=== PATIENT | male | born 1980 | race Caucasian/White ===

== ENCOUNTER 2024-06-03 12:18 | Emergency (ER) | payer MEDICAID, SELFPAY ==
[2024-06-03 12:29] VITALS: BP 132/89; PULSE 128; RESP 19; TEMP 36.4; O2SAT 98; BMI 26.6
--- NOTE | 2024-06-03 13:08 | EKG_ITS ---
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
--- NOTE | 2024-06-03 13:08 | XR_ITS ---
Examination: PA lateral chest 2 views TECHNIQUE: Upright PA lateral chest 2 views Exam date and time: June 03, 2024 1329 hours Comparison December 09, 2022 INDICATIONS: Intermittent chest pain coughing beginning 3 days ago. FINDINGS: Significant bilateral perihilar pneumonia Prominent hilar regions Mild enlargement cardiac contour Moderate osteopenia IMPRESSION: Significant bilateral perihilar pneumonia, follow-up imaging is needed to document clearing
--- NOTE | 2024-06-03 13:09 | PD.EDRME ---
Rapid Medical Screening Exam RME Arrival date/time: 06/03/24 12:18 This is a 43-year-old male here with complaints of chest pain, dyspnea worsening dyspnea when he lays down. Symptoms have been for 3 days. I have greeted and performed a focused initial assessment of this patient. Initial appropriate labs ordered at this time. A comprehensive ED assessment and evaluation of the patient and analysis of all test and completion of medical decision making process will be conducted by additional ED provider. Chief Complaint: Flu Like Symptoms Time Seen by Provider: 06/03/24 12:39 Vital signs: Vital Signs Temperature 97.6 F 06/03/24 12:29 Pulse Rate 128 H 06/03/24 12:29 Respiratory Rate 19 06/03/24 12:29 Blood Pressure 132/89 H 06/03/24 12:29 Pulse Oximetry (%) 98 06/03/24 12:29 Oxygen Delivery Method Room Air 06/03/24 12:29
[2024-06-03 14:21] LABS: Collection Type, Urine Clean Catch
[2024-06-03 14:26] LABS: Basophils # (Auto) 0.1 Thou/mm3 (0.0-0.2); Basophils % (Auto) 0 % (0-2.5); Eosinophils # (Auto) 0.1 Thou/mm3 (0.0-0.5); Eosinophils % (Auto) 0 % (0-10); Hematocrit 46.7 % (41.0-53.0); Hemoglobin 15.6 g/dL (13.5-16.0); Immature Granulocytes % (Auto) 0 % (0-0); Immature Granulocytes Auto 0.04 Thou/mm3 (0.00-0.00); Lymphocytes # (Auto) 1.3 Thou/mm3 (1.0-4.8); Lymphocytes % (Auto) 11 % (10-50); Mean Corpuscular HGB Conc 33.4 g/dl (31.0-37.0); Mean Corpuscular Hemoglobin 29.4 pg (25.0-35.0); Mean Corpuscular Volume 88 fL (80-100); Monocytes # (Auto) 0.8 Thou/mm3 (0.0-0.8); Monocytes % (Auto) 7 % (0-12); Neutrophils # (Auto) 10.3 Thou/mm3 (1.8-7.7); Neutrophils % (Auto) 82 % (37-80); Nucleated Red Blood Cell % 0 /100 WBC (0); Platelet Count 258 Thou/mm3 (140-440); RDW Standard Deviation 41.2 fL (35.1-43.9); Red Blood Count 5.31 Miln/mm3 (4.50-5.90); White Blood Count 12.6 Thou/mm3 (3.8-10.6)
[2024-06-03 14:28] LABS: Bilirubin,Urine Negative (Negative); Blood,Urine Negative (Negative); Clarity,Urine Clear (Clear/Hazy); Color,Urine Lt-Yellow (Lt Yel-Yel); Glucose, Urine Negative (Negative); Ketones,Urine Negative (Negative); Leukocyte Esterase,Urine Negative (Negative); Nitrite,Urine Negative (Negative); PH,Urine 5.5 (5.0-7.0); Protein,Urine Negative (Neg - Trace); RBC,Urine 2 /hpf (0-3); Specific Gravity,Urine 1.013 (1.001-1.035); Squamous Epithelial Cell,Urine < 1 /hpf (0-5); Urobilinogen,Urine Negative mg/dL (0.0-1.0); WBC,Urine 1 /hpf (0-5)
[2024-06-03 14:49] LABS: Alanine Aminotransferase 105 U/L (10-49); Albumin, Serum 4.5 gm/dL (3.5-5.0); Alkaline Phosphatase 76 U/L (46-116); Anion Gap 7 (7-16); Aspartate Amino Transferase 43 U/L (0-34); BUN/Creatinine Ratio 17 Ratio (12-20); Blood Urea Nitrogen 15 mg/dL (9-23); Calcium 9.2 mg/dL (8.3-10.6); Calcium (Corrected) 9.2 mg/dL (8.5-10.1); Carbon Dioxide 26.4 mMol/L (20.0-31.0); Chloride 103 mMol/L (98-107); Creatinine (Component) 0.9 mg/dL (0.6-1.3); Estimated Creatinine Clearance 104.7 mL/min (>60); Globulin 2.3 gm/dL (2.3-3.5); Glucose 137 mg/dL (74-106); Lipase 30 U/L (12-53); Magnesium 1.8 mg/dL (1.6-2.6); Osmolality,Calculated 274 (275-295); Potassium 4.5 mMol/L (3.4-5.1); Sodium 136 mMol/L (136-145); Total Protein 6.8 gm/dL (5.7-8.2); Troponin I 0.021 ng/mL (0.0-0.045); eGFR > 60 See Note
[2024-06-03 15:50] VITALS: BP 134/97; PULSE 130; RESP 19; TEMP 36.5; O2SAT 100
--- NOTE | 2024-06-03 15:59 | PD.EDURI ---
Upper Respiratory Inf. RME/HPI General Chief Complaint: Flu Like Symptoms Stated Complaint: cough, feels like there is liquid in lungs x3days Time Seen by Provider: 06/03/24 12:39 Arrival date/time: 06/03/24 12:18 RME / HPI RME / HPI Narrative: 43-year-old male patient with no significant medical history, came in for evaluation regarding worsening cough, with yellowish phlegm, dyspnea on exertion, chest pain and coughing, severity moderate. Has been ongoing for the last 3 days. Patient denies any fever. Denies any other complaint. No medication was taken prior to arrival. Related Data Previous Rx's ?Medication ?Instructions ?Recorded naproxen 500 mg tablet 500 mg PO BID #14 tabs 12/13/22 albuterol sulfate 90 mcg/actuation 2 inh inhalation QID PRN shortness 06/03/24 breath activated powder inhaler of breath #1 ea (ProAir RespiClick) amoxicillin 875 mg-potassium 1 tab PO BID #14 tabs 06/03/24 clavulanate 125 mg tablet doxycycline hyclate 100 mg capsule 100 mg PO BID #14 caps 06/03/24 Allergies Allergy/AdvReac Type Severity Reaction Status Date / Time NKA* Allergy Uncoded 06/03/24 12:21 Review of Systems Review of Systems Narrative Review of Systems: Review of system reviewed and within normal limits except mentioned in HPI ED Exam Narrative Physical exam: VITAL SIGNS: Reviewed. GENERAL APPEARANCE: Alert and interactive, follows commands, no acute distress, HEAD AND FACE: Non-traumatic. ENT: PERRL, pink conjunctivitis, eyelid no trauma, Mucous membrane moist. NECK: Supple, nontender, no nuchal rigidity. CHEST: No tenderness, no crepitus, no paradoxical movement, no retractions. LUNGS: Clear, well ventilated, symmetric, no rales, no wheezing, no ronchi, no stridor, good breath sounds bilaterally. HEART: Regular rate, regular rhythm, no murmur, no gallops. ABDOMEN: Soft, positive bowel sounds, nondistended, no guarding, nontender, no rebound, no masses, RECTAL: Deferred. GENITAL: Deferred. NEUROLOGICAL: Gross motor function intact sensory function intact, Appropriate for age. MUSCULOSKELETAL: low back nontender, full range of motion. EXTREMITIES: Nontender, full range of motion. SKIN: Color pink, dry, no rash, no lacerations, no abrasions, no contusions. LYMPHATICS: Deferred. Course Quality Measures none Orders Category Date Time Status EKG (ED ONLY) *Do not use* NOW Care 06/03/24 13:08 Completed NPO STAT Care 06/03/24 13:08 Active EKG (ED Only) Stat Exams 06/03/24 13:08 Draft XR chest 2V Stat Exams 06/03/24 13:08 Completed CBC Stat Lab 06/03/24 13:56 Completed Comprehensive Metabolic Panel Stat Lab 06/03/24 13:56 Completed Lipase Stat Lab 06/03/24 13:56 Completed Magnesium Stat Lab 06/03/24 13:56 Completed Troponin I Stat Lab 06/03/24 13:56 Completed Urinalysis Stat Lab 06/03/24 14:09 Completed Vital Signs Vital signs: Vital Signs Temperature 97.6 F 06/03/24 12:29 Pulse Rate 128 H 06/03/24 12:29 Respiratory Rate 19 06/03/24 12:29 Blood Pressure 132/89 H 06/03/24 12:29 Pulse Oximetry (%) 98 06/03/24 12:29 Oxygen Delivery Method Room Air 06/03/24 12:29 Upper Respiratory Infection MDM Narrative MDM Narrative:: 43-year-old male patient with no significant medical history, came in for evaluation regarding worsening cough, with yellowish phlegm, dyspnea on exertion, chest pain and coughing, severity moderate. Has been ongoing for the last 3 days. Patient denies any fever. Denies any other complaint. No medication was taken prior to arrival. Laboratory workup all came back with slight leukocytosis, otherwise unremarkable. Chest x-ray showed bilateral pneumonia. Results discussed with the patient. Patient will be discharged home on Augmentin and doxycycline. Currently patient is satting 100% on room air Patient data External records reviewed:: None Clinical information provided by:: patient Social determinants that could affect healthcare access:: none Patient has the following chronic illnesses:: None How is presenting disease/condition affected by chronic disease/condition?: no chronic disease Evaluation data The following diagnostics were reviewed and interpreted by me:: lab results and radiology exam(s) Lab and/or radiology exams considered but not ordered:: None Interpretation Summary: Laboratory workup came back with slight leukocytosis. The rest of the labs unremarkable. Chest x-ray showed bilateral pneumonia Medications / Prescriptions Medications or Prescriptions considered but not ordered:: None none Medication administrations:: None Consultations Consultation(s) initiated? (list below): No Diagnosis Upper Respiratory Differential Diagnosis: upper respiratory infection, influenza and other (Pneumonia) Most likely diagnosis given after review of the tests above:: Pneumonia Admission Indicated Admission indicated?: not indicated Explain why admission is indicated or not indicated:: Stable Admission Request Was there a request for admission?: No Disposition Plan Disposition Plan: Discharge Discharge Attestation Discharge Attestation: The patient was given an opportunity to ask questions and understood the discharge instructions. Discharge instructions specifically effects, indications for sooner follow up or return to the emergency department, and the expected course of current diagnosis. Patient condition: Stable Discharge Plan Plan Patient Disposition: HOME (Self Care) Disposition Comment: stable Prescriptions/Referrals Prescriptions/Med Rec: New amoxicillin-pot clavulanate 875-125 mg tablet 1 tab PO BID Qty: 14 0RF doxycycline hyclate 100 mg capsule 100 mg PO BID Qty: 14 0RF ProAir RespiClick 90 mcg/actuation aerosol powdr breath activated 2 inh inhalation QID PRN (Reason: shortness of breath) Qty: 1 0RF No Action naproxen 500 mg tablet 500 mg PO BID Qty: 14 0RF Referrals: No Primary/Family,Physician [Primary Care Provider] - In 1 week Problem List Clinical Impression: Pneumonia Patient/Caregiver Discharge Instructions Education Materials: Treating Pneumonia Additional Instructions: Thank you for the opportunity for serving you today. You are stable for discharged . You are advised to: Follow-up with your PCP in 1 to 2 days Return to ED for worsening of symptoms Increase oral fluids Take medication as prescribed Print Language: Cape Verdean Stand Alone Forms: Yara Award Info., Patient Portal Info Letter PA/BUILDING PRINCIPAL Supervising Physician CATHIE/BUILDING PRINCIPAL Supervising Physician: MD Eric
[2024-06-03 16:53] VITALS: PULSE 88; O2SAT 99
== END 2024-06-03 16:54 | disposition home or self-care (01) ==
PROVIDERS: Nurse Practitioner Primary Care; Emergency Provider Emergency Medicine
DX: J18.9 Pneumonia, unspecified organism (principal); R00.0 Tachycardia, unspecified
CPT/HCPCS: 36415; 71046; 80053; 81001; 83690; 83735; 84484; 85025; 93005; 99283

== ENCOUNTER 2024-06-13 13:58 | Emergency (ER) | payer MEDICAID, SELFPAY ==
[2024-06-13 13:59] VITALS: BMI 27.3
--- NOTE | 2024-06-13 15:04 | EKG_ITS ---
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
[2024-06-13 15:09] VITALS: BP 120/80; PULSE 130; RESP 18; TEMP 36.4; O2SAT 98
--- NOTE | 2024-06-13 15:18 | XR_ITS ---
Examination: PA lateral chest 2 views Technique: Upright PA lateral chest 2 views Exam date and time: June 13, 2024 1526 hrs. Comparison June 03, 2024 Indications: Shortness of breath difficulty breathing today. Findings: Mild heart failure Mild to moderate enlargement left ventricle Prominent vascular congestion including early perihilar edema No definite lobar pneumonia on this study Impression: Early heart failure
--- NOTE | 2024-06-13 15:19 | PD.EDRME ---
Rapid Medical Screening Exam RME Arrival date/time: 06/13/24 13:58 43-year-old male presents emergency department complaining of shortness of breath and reports recently completed antibiotic course for pneumonia. Chief Complaint: Shortness of Breath/Dyspnea Time Seen by Provider: 06/13/24 15:13 Vital signs: Vital Signs Temperature 97.6 F 06/13/24 15:09 Pulse Rate 130 H 06/13/24 15:09 Respiratory Rate 18 06/13/24 15:09 Blood Pressure 120/80 06/13/24 15:09 Pulse Oximetry (%) 98 06/13/24 15:09 Oxygen Delivery Method Room Air 06/13/24 15:09 Vital signs reviewed by provider: Yes
[2024-06-13 15:59] LABS: Basophils # (Auto) 0.1 Thou/mm3 (0.0-0.2); Basophils % (Auto) 1 % (0-2.5); Eosinophils # (Auto) 0.1 Thou/mm3 (0.0-0.5); Eosinophils % (Auto) 1 % (0-10); Hematocrit 44.5 % (41.0-53.0); Hemoglobin 14.8 g/dL (13.5-16.0); Immature Granulocytes % (Auto) 0 % (0-0); Immature Granulocytes Auto 0.02 Thou/mm3 (0.00-0.00); Lymphocytes # (Auto) 1.5 Thou/mm3 (1.0-4.8); Lymphocytes % (Auto) 17 % (10-50); Mean Corpuscular HGB Conc 33.3 g/dl (31.0-37.0); Mean Corpuscular Hemoglobin 28.8 pg (25.0-35.0); Mean Corpuscular Volume 87 fL (80-100); Monocytes # (Auto) 0.6 Thou/mm3 (0.0-0.8); Monocytes % (Auto) 7 % (0-12); Neutrophils # (Auto) 6.4 Thou/mm3 (1.8-7.7); Neutrophils % (Auto) 74 % (37-80); Nucleated Red Blood Cell % 0 /100 WBC (0); Platelet Count 375 Thou/mm3 (140-440); RDW Standard Deviation 39.6 fL (35.1-43.9); Red Blood Count 5.14 Miln/mm3 (4.50-5.90); White Blood Count 8.7 Thou/mm3 (3.8-10.6)
[2024-06-13 16:23] LABS: Alanine Aminotransferase 144 U/L (10-49); Albumin, Serum 4.3 gm/dL (3.5-5.0); Albumin/Globulin Ratio 1.8 (1.2-2.2); Alkaline Phosphatase 77 U/L (46-116); Anion Gap 7 (7-16); Aspartate Amino Transferase 67 U/L (0-34); BUN/Creatinine Ratio 18 Ratio (12-20); Bilirubin,Total 0.6 mg/dL (0.3-1.2); Blood Urea Nitrogen 18 mg/dL (9-23); Calcium 9.3 mg/dL (8.3-10.6); Calcium (Corrected) 9.3 mg/dL (8.5-10.1); Carbon Dioxide 25.9 mMol/L (20.0-31.0); Chloride 103 mMol/L (98-107); Estimated Creatinine Clearance 91.2 mL/min (>60); Globulin 2.4 gm/dL (2.3-3.5); Glucose 137 mg/dL (74-106); Osmolality,Calculated 275 (275-295); Potassium 4.5 mMol/L (3.4-5.1); Sodium 136 mMol/L (136-145); Total Protein 6.7 gm/dL (5.7-8.2); Troponin I 0.022 ng/mL (0.0-0.045); eGFR > 60 See Note
[2024-06-13 17:25] LABS: Amphetamine/Methamp Scrn,U Positive (Negative); Barbiturate Screen,Urine Negative (Negative); Benzodiazepines Screen,Urine Negative (Negative); Benzoylecgonine Screen, Ur Negative (Negative); Fentanyl Screen,Urine Negative (Negative); Opiate Screen,Urine Negative (Negative); THC Screen,Urine Positive (Negative)
--- NOTE | 2024-06-13 18:25 | EDNOTE_ITS ---
ED General RME/HPI General Chief complaint: Shortness of Breath/Dyspnea Stated complaint: SOB DIFF BREATHING, HX OF LUNG INF Time Seen by Provider: 06/13/24 15:13 Arrival date/time: 06/13/24 13:58 CC: Anxiety and coughing up phlegm HPI ongoing for the past week. The patient was seen here 1 week ago, at which time the patient was diagnosed with a pneumonia. The patient states he took all the antibiotics and the cough and cold-like symptoms have resolved but the anxiety and coughing up phlegm has continued. The patient admits to using methamphetamines for the last decade but is trying to cut back. Patient denies chest pain shortness of breath or difficulty breathing. Patient is quite fidgety and anxious while discussing his all with me the patient has no other complaints. RME / HPI RME / HPI narrative: 06/13/24 13:58 43-year-old male presents emergency department complaining of shortness of breath and reports recently completed antibiotic course for pneumonia. Related Data Previous Rx's ?Medication ?Instructions ?Recorded naproxen 500 mg tablet 500 mg PO BID #14 tabs 12/13/22 albuterol sulfate 90 mcg/actuation 2 inh inhalation QID PRN shortness 06/03/24 breath activated powder inhaler of breath #1 ea (ProAir RespiClick) amoxicillin 875 mg-potassium 1 tab PO BID #14 tabs 06/03/24 clavulanate 125 mg tablet doxycycline hyclate 100 mg capsule 100 mg PO BID #14 caps 06/03/24 Allergies Allergy/AdvReac Type Severity Reaction Status Date / Time NKA* Allergy Uncoded 06/13/24 14:00 Review of Systems Review of Systems Narrative Review of Systems: GEN: No fever, no chills, no weight loss EYES: No discharge, no visual changes, no pain HEENT: No ear pain, no congestion, no sore throat PULM: No shortness of breath, no cough, no congestion CV: No chest pain, no dyspnea on exertion, no palpitations GI: No nausea, no vomiting, no diarrhea, no pain, no constipation : No frequency, no urgency, no dysuria MUSC/SKEL: No joint pain, no back pain SKIN: No rash PSYCH: No hallucinations, no depression HEME/LYMPH: No easy bleeding or bruising tendencies NEURO: No weakness, no headache Past Medical History Past Medical History CARDIAC: Negative Cardiac Disorders or Congestive Heart Failure RESPIRATORY: Negative Chronic Obstructive Pulmonary Disease (COPD) or Asthma GENITOURINARY: Negative Renal Disease ENDOCRINE: Negative Diabetes Mellitus Type 1 or Diabetes Mellitus Type 2 HEMATOLOGIC: Negative Sickle Cell Disease Social History SMOKING STATUS: Current every day smoker ED Exam Narrative Physical exam: [General: Anxious, fidgety, but not in any acute distress Head normocephalic HEENT: Within acceptable limits Neck is supple nontender Chest equal chest rise nontender to palpation Respiratory: Clear to auscultation no wheezes crackles or rubs CV: Rate rhythm is regular, tachycardic, no murmurs rubs or clicks Abdomen is soft nontender no masses positive bowel sounds all 4 quadrants Back: No CVA tenderness no spinous process tenderness from cervical spine thoracic and lumbar spine Skin: Intact no petechiae rash induration ulceration or crepitus Extremities: Moving all extremity against resistance cap refill less than 2 seconds neurosensory intact Neuro: Awake alert oriented x3 Glascow coma 15 no focal deficits] Course Quality Measures none Orders Category Date Time Status EKG (ED ONLY) *Do not use* NOW Care 06/13/24 15:04 Completed EKG (ED Only) Stat Exams 06/13/24 15:04 Draft XR chest 2V Stat Exams 06/13/24 15:18 Completed CBC Stat Lab 06/13/24 15:49 Completed Comprehensive Metabolic Panel Stat Lab 06/13/24 15:49 Completed Drug Screen,Urine Stat Lab 06/13/24 16:53 Completed Troponin I Stat Lab 06/13/24 15:49 Completed Vital Signs Vital signs: Vital Signs Temperature 97.6 F 06/13/24 15:09 Pulse Rate 130 H 06/13/24 15:09 Respiratory Rate 18 06/13/24 15:09 Blood Pressure 120/80 06/13/24 15:09 Pulse Oximetry (%) 98 06/13/24 15:09 Oxygen Delivery Method Room Air 06/13/24 15:09 [facility] Patient data External records reviewed:: [facility] previous records Clinical information provided by:: patient Social determinants that could affect healthcare access:: none Patient has the following chronic illnesses:: Methamphetamine abuse How is presenting disease/condition affected by chronic disease/condition?: e xacerbated by Evaluation data The following diagnostics were reviewed and interpreted by me:: lab results and radiology exam(s) Lab and/or radiology exams considered but not ordered:: CBC shows no acute leukocytosis anemia thrombocytopenia CMP shows no acute electrolyte imbalances renal impairment transaminitis or T. bili elevation Chest x-ray shows mild congestive heart failure EKG performed at 1514 shows a ventricular rate of 129 SD interval 145 QRS of 101 QTc of 397 this is sinus tachycardia right axis deviation. Interpretation Summary: Patient fairly admits he feels better after the cold-like symptoms from 1 week ago but is anxious regarding his anxiety, and coughing up phlegm. Patient states he has no PCP advised him that he is to continue with the PCP as there is no acute finding requires emergent or immediate intervention. Patient will be discharged home to continue use the rescue inhaler he was prescribed at last visit only as needed. Medications Medications considered but not ordered:: None Medication administrations:: None Consultations Consultation(s) initiated? (list below): No Diagnosis Differential Diagnosis ED Complaint MDM: Worsening pneumonia anxiety methamphetamine abuse Most likely diagnosis given after review of the tests above:: Anxiety methamphetamine abuse Admission Indicated Admission indicated?: not indicated Explain why admission is indicated or not indicated:: Stable for outpatient follow-up Admission Request Was there a request for admission?: No Disposition Plan Disposition Plan: Discharge Discharge Attestation Discharge Attestation: The patient and all family members were given an opportunity to ask questions and understood the discharge instructions. Discharge instructions specifically effects, indications for sooner follow up or return to the emergency department, and the expected course of current diagnosis. Patient condition: Stable Medical Decision Making Differential Diagnosis Differential Diagnosis: Worsening pneumonia anxiety methamphetamine abuse Lab Data 06/13/24 15:49 06/13/24 15:49 Labs: Lab Results 06/13/24 06/13/24 Range/Units 15:49 16:53 WBC 8.7 (3.8-10.6) Thou/mm3 RBC 5.14 (4.50-5.90) Miln/mm3 Hgb 14.8 (13.5-16.0) g/dL Hct 44.5 (41.0-53.0) % MCV 87 (80-100) fL MCH 28.8 (25.0-35.0) pg MCHC 33.3 (31.0-37.0) g/dl RDW Std Deviation 39.6 (35.1-43.9) fL Plt Count 375 D (140-440) Thou/mm3 Neut % (Auto) 74 (37-80) % Lymph % (Auto) 17 (10-50) % Tom[place]kins % (Auto) 7 (0-12) % Eos % (Auto) 1 (0-10) % Baso % (Auto) 1 (0-2.5) % Neut # (Auto) 6.4 (1.8-7.7) Thou/mm3 Lymph # (Auto) 1.5 (1.0-4.8) Thou/mm3 Tom[place]kins # (Auto) 0.6 (0.0-0.8) Thou/mm3 Eos # (Auto) 0.1 (0.0-0.5) Thou/mm3 Baso # (Auto) 0.1 (0.0-0.2) Thou/mm3 Immature Gran # (Auto) 0.02 H (0.00-0.00) Thou/mm3 Absolute Nucleated RBC 0.00 (0.00-0.00) Thou/mm3 Immature Gran % 0 (0-0) % Nucleated RBC % 0 (0) /100 WBC Sodium 136 (136-145) mMol/L Potassium 4.5 (3.4-5.1) mMol/L Chloride 103 (98-107) mMol/L Carbon Dioxide 25.9 (20.0-31.0) mMol/L Anion Gap 7 (7-16) BUN 18 (9-23) mg/dL Creatinine 1.0 (0.6-1.3) mg/dL Estim Creat Clear Calc 91.2 (>60) mL/min eGFR > 60 (60 - ) See Note BUN/Creatinine Ratio 18 (12-20) Ratio Glucose 137 H (74-106) mg/dL Calculated Osmolality 275 (275-295) Calcium 9.3 (8.3-10.6) mg/dL Corrected Calcium 9.3 (8.5-10.1) mg/dL Total Bilirubin 0.6 (0.3-1.2) mg/dL AST 67 H (0-34) U/L ALT 144 H (10-49) U/L Alkaline Phosphatase 77 (46-116) U/L Troponin I 0.022 (0.0-0.045) ng/mL Total Protein 6.7 (5.7-8.2) gm/dL Albumin 4.3 (3.5-5.0) gm/dL Globulin 2.4 (2.3-3.5) gm/dL Albumin/Globulin Ratio 1.8 (1.2-2.2) Urine Opiates Screen Negative (Negative) Urine Fentanyl Screen Negative (Negative) Ur Barbiturates Screen Negative (Negative) U Amphetamin/Meth Scrn Positive A (Negative) U Benzodiazepines Scrn Negative (Negative) U Cocaine Metab Screen Negative (Negative) U Marijuana (THC) Screen Positive A (Negative) Discharge Plan Plan Patient Disposition: HOME (Self Care) Patient condition on transfer: Stable Prescriptions/Referrals Prescriptions/Med Rec: No Action naproxen 500 mg tablet 500 mg PO BID Qty: 14 0RF amoxicillin-pot clavulanate 875-125 mg tablet 1 tab PO BID Qty: 14 0RF doxycycline hyclate 100 mg capsule 100 mg PO BID Qty: 14 0RF ProAir RespiClick 90 mcg/actuation aerosol powdr breath activated 2 inh inhalation QID PRN (Reason: shortness of breath) Qty: 1 0RF Referrals: Kolton Blair MD [Physician] - In 1 week No Primary/Family,Physician [Primary Care Provider] - In 1 week Problem List Clinical Impression: Anxiety, Phlegm in throat, Substance abuse Patient/Caregiver Discharge Instructions Other Activity Instructions:: Continue to use your rescue inhaler only when you need to i.e. when you are wheezing. Phlegm will take a while to go away. Anxiety and difficulty sleeping and need to follow-up with the primary care provider listed above for further evaluation and/or possibility of medications. Education Materials: ED Anxiety Reaction Print Language: Puerto Rican Stand Alone Forms: Yara Award Info., Work/School Release, Patient Portal Info Letter PA/ELEMENT BURNER Supervising Physician PA/ELEMENT BURNER Supervising Physician: Owen Jones ENP
== END 2024-06-13 18:38 | disposition home or self-care (01) ==
PROVIDERS: Emergency Provider Emergency Medicine
DX: F41.9 Anxiety disorder, unspecified (principal); F19.10 Other psychoactive substance abuse, uncomplicated; R00.0 Tachycardia, unspecified; R05.9 Cough, unspecified
CPT/HCPCS: 36415; 71046; 80053; 80307; 84484; 85025; 93005; 99283

== ENCOUNTER 2024-12-20 00:58 | Inpatient (IN) | payer MEDICAID, SELFPAY ==
[2024-12-20] VITALS (91 sets, daily range): BP systolic 112–145; BP diastolic 88–108; PULSE 87–131; RESP 0–94; TEMP 36.1–36.8; O2SAT 91–100; BMI 22.0
--- NOTE | 2024-12-20 | XR_ITS ---
Examinations: MRI Brain without intravenous contrast. MRA brain without intravenous contrast. MRA carotids without intravenous contrast 3-D vascular reconstructions Date and time of exam: December 20, 2024 1309 hours INDICATIONS: Stroke alert December 20, 2024 0107 hours, onset focal neurologic deficit including right facial droop and right arm drift altered mental status, unable to walk Technique: Multiple axial and sagittal images of the brain have been obtained MRA brain carotid images without contrast obtained, including 3-D postprocessing, vascular maximum intensity projection images Findings: Sell[place] is not enlarged. The optic chiasm and infundibular stalk are not remarkable. Prepontine and interpeduncular cisterns are not enlarged. No localized enlargement of the medulla or ninoska. Fourth ventricle and cerebellar tonsils normal in position. Subacute hemorrhage is not seen. Fourth ventricle is midline. Mass in the cerebellopontine angle region is not evident. 7th and 8th nerve complexes exhibits symmetry. Globes are symmetrical with no retro-orbital mass. Increased white matter signal evident in the left basal ganglia Diffusion-weighted images demonstrate foci restricted diffusion left basal ganglia including left caudate nucleus and smaller restricted foci of diffusion in the left parietal cortex Mass-effect upon the ventricular system is not identified. 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
--- NOTE | 2024-12-20 01:00 | PC.NURSE ---
PT BIB EMS WITH C/O POSS STROKE PER EMS. PT CALLED EMS STATING PT APPEARED ALTERED. PER EMS FACIAL DROOP AND RIGHT SIDED ARM AND LOWER LEG WEAKENESS NOTED. PT PRESENTS TO ER, ALTERED, NOT ANSWERING ANY QUESTIONS. MD BURNETT MET EMS [place] [facility] [place] AND ASSESSED PT. PT TAKEN TO CT VIA EMS GURNEY. FOLLOWED BY THIS RN. TELENUERO ACTIVATED.
--- NOTE | 2024-12-20 01:01 | XR_ITS ---
Examination: CTA carotids with intravenous contrast CTA brain, head with intravenous contrast. 2-D sagittal, coronal reconstructions. 3-D reconstructions. Exam date and time: December 20, 2024 0115 hours INDICATIONS: Stroke alert, onset focal neurologic deficit today CTDI: vol (mGy) 11.4 DLP: (mGycm) 484 Technique: Multiple CTA axial brain, head carotid images post intravenous contrast injection 75 cc, [id number]. 2-D sagittal, coronal reconstructions. 3-D reconstructions, 3-D post processing including vascular maximum intensity projection images. Low dose protocols were performed. One or more of the following dose reduction techniques were used; automated exposure control, adjustment of the mA and/or KV according to patient size, use of iterative reconstruction technique. Findings: Study is severely limited secondary to contrast bolus timing error and patient motion No critical carotid or vertebral artery stenoses Very poor filling of the cerebral vessels with no large vessel occlusions noted Extensive opacity at the lung apices suspicious for pulmonary edema Impression : Study is significantly limited secondary to contrast bolus timing error and patient motion. No significant neck arterial stenoses Very poor filling of cerebral vessels with no large vessel occlusions noted
--- NOTE | 2024-12-20 01:01 | EDNOTE_ITS ---
Neuro Symptoms Deficit-RME/HPI General Chief Complaint: Altered Mental Status Stated Complaint: POSSIBLE STROKE Time Seen by Provider: 12/20/24 01:13 Arrival date/time: 12/20/24 00:58 RME / HPI RME / HPI Narrative: This section includes all my notes and documentations, including HPI, PE, and ED course. Kenton Carroll MD HPI: 44yo male with a history of CHF, HTN BIBA from home presents to the ED for complaints of right facial droop and right arm drift that started just SUSTAINABILITY ANALYST about [address] him in the car to bring him here. He was unable to ambulate. So she placed him on the ground and called EMS. Blood sugar en route was 153. No other complaints reported. ROS: Unobtainable obtain from the patient due to AMS. Physical Exam: General: Obtunded. Eyes: Conjunctivae and lids clear. EOMI. PERRL. ENT: No signs of head trauma. Neck: Supple. No carotid bruit. No JVD. Heart: RRR. Lungs: No respiratory distress. Good air movement. No rhonchi, wheezing, rales. Abdomen: Soft and nontender. Legs: No clubbing, cyanosis, edema. Skin: Warm and dry. Neuro: Obvious right sided paralysis. Detailed exam difficult due to AMS. I reviewed EMS notes. I reviewed all diagnostic test results. My interpretation of the EKG is sinus tachycardia with nonspecific ST-T changes. My interpretation of the chest x-ray is no acute findings, official radiology report is pending. My review of the CT head report is NAD. My review of the CT angio head and neck report is no acute findings. Blood tests remarkable for BNP 1991. UA unremarkable. UDS positive for methamphetamines and marijuana. At this point, diagnoses include CVA. Treatment here included TNK. Some improvement noted. I discussed the case with our teleneurologist and ICU physician. About the presentation and exam and diagnostics and treatments here. And need of further care in the hospital. Will accept the patient. Kenton Carroll MD Related Data Previous Rx's ?Medication ?Instructions ?Recorded naproxen 500 mg tablet 500 mg PO BID #14 tabs 12/13 albuterol sulfate 90 mcg/actuation 2 inh inhalation QI D PRN shortness 06/03/24 breath activated powder inhaler of breath #1 ea (ProAir RespiClick) amoxicillin 875 mg-potassium 1 tab PO BID #14 tabs clavulanate 125 mg tablet doxycycline hyclate 100 mg capsule 100 mg PO BID #14 c aps 06/03/24 Allergies Allergy/AdvReac Type Severity Reaction Status Date / Time NKA* Allergy Uncoded 06/13/24 14:00 Review of Systems Review of Systems ROS Unobtainable: unobtainable due to mental status Past Medical History Past Medical History CARDIAC: Negative Cardiac Disorders or Congestive Heart Failure RESPIRATORY: Negative Chronic Obstructive Pulmonary Disease (COPD) or Asthma GENITOURINARY: Negative Renal Disease ENDOCRINE: Negative Diabetes Mellitus Type 1 or Diabetes Mellitus Type 2 HEMATOLOGIC: Negative Sickle Cell Disease Social History SMOKING STATUS: Current every day smoker ED Exam Narrative Physical exam: As noted in HPI. Course Quality Measures Suspected type of Stroke: Acute Ischemic Tenecteplase given: within 60 min of arrival stroke Orders Category Date Time Status Admit to Inpatient Status Routine Admission 12/20/24 02:55 Active Patient Condition Routine Admission 12/20/24 02:55 Ordered Aspiration precautions NOW Care 12/20/24 02:56 Active Bedrest QS Care 12/20/24 02:54 Active Bedside Blood Glucose NOW Care 12/20/24 01:01 Active COVID-19 Screening Questionnaire NOW Care 12/20/24 02:54 Active Apartment Leasing Specialist NOW Care 12/20/24 01:01 Active Continuous Pulse Oximetry NOW Care 12/20/24 01:01 Completed Continuous Pulse Oximetry NOW Care 12/20/24 02:54 Completed Decision to Admit X1 Care 12/20/24 02:54 Completed EKG (ED ONLY) *Do not use* NOW Care 12/20/24 01:01 Completed In and Out Catheter X1 Care 12/20/24 01:01 Active Insert IV NOW Care 12/20/24 01:01 Active NIH Stroke Scale Q4HX8,QSHIFT Care 12/20/24 01:30 Active NIH Stroke Scale now Care 12/20/24 01:01 Active NPO NOW Care 12/20/24 01:01 Active NPO NOW Care 12/20/24 02:56 Active Neuro Check Q30M Care 12/20/24 01:30 Active Notify provider NEEDED Care 12/20/24 02:55 Active Nurse Swallow Screen x1 Care 12/20/24 01:01 Active Seizure precautions NEEDED Care 12/20/24 02:56 Active Sequential Compression Device QSHIFT Care 12/20/24 02:54 Active Strict Intake and Output Routine Care 12/20/24 02:55 Ordered Urinary Catheter QS Care 12/20/24 02:54 Active Vital Signs Q15M Care 12/20/24 01:30 Active Consult to Neurology / Tele-Neurology Routine Cons 12/20/24 01:01 Active Consult to Neurology / Tele-Neurology Routine Cons 12/20/24 02:58 Active Referral Physical Therapy Routine Cons 12/20/24 02:58 Active Referral Speech Therapy Routine Cons 12/20/24 02:58 Active Diet NPO (NOW) Diet 12/20/24 02:56 Active CA echo doppler complete Stat Exams 12/20/24 02:[address] angio stroke protocol Stat Exams 12/20/24 01:[address] stroke protocol Stat Exams 12/20/24 01:01 Taken EKG (ED Only) Stat Exams 12/20/24 01:01 Ordered XR chest 1V portable Stat Exams 12/20/24 01:05 Taken Alcohol, Blood Medical Stat Lab 12/20/24 01:26 Completed Ammonia Stat Lab 12/20/24 01:26 Completed Arterial Blood Gas Stat Lab 12/20/24 01:43 Completed B-Type Natriuretic Peptide Stat Lab 12/20/24 01:26 Completed Bilirubin,Direct Stat Lab 12/20/24 01:26 Completed CBC AM DRAW Lab 12/20/24 05:00 Ordered CBC AM DRAW Lab 12/21/24 05:00 Ordered CBC AM DRAW Lab 12/22/24 05:00 Ordered CBC Stat Lab 12/20/24 01:26 Completed CK [Creatine Kinase] Stat Lab 12/20/24 01:26 Completed Comprehensive Metabolic Panel AM DRAW Lab 12/20/24 05:00 Ordered Comprehensive Metabolic Panel AM DRAW Lab 12/21/24 05:00 Ordered Comprehensive Metabolic Panel AM DRAW Lab 12/22/24 05:00 Ordered Comprehensive Metabolic Panel Stat Lab 12/20/24 01:26 Completed Drug Screen,Urine Stat Lab 12/20/24 01:48 Completed Free T4 (Free Thyroxine) Stat Lab 12/20/24 01:26 Completed Lipid Panel AM DRAW Lab 12/20/24 05:00 Ordered Magnesium AM DRAW Lab 12/20/24 05:00 Ordered Magnesium AM DRAW Lab 12/21/24 05:00 Ordered Magnesium AM DRAW Lab 12/22/24 05:00 Ordered Magnesium Stat Lab 12/20/24 01:26 Completed Partial Thromboplastin Time Stat Lab 12/20/24 01:26 Completed Phosphorous AM DRAW Lab 12/21/24 05:00 Ordered Phosphorous AM DRAW Lab 12/22/24 05:00 Ordered Phosphorous AM DRAW Lab 12/23/24 05:00 Ordered Prothrombin Time with INR Stat Lab 12/20/24 01:26 Completed TSH [Thyroid Stimulating Hormone] Stat Lab 12/20/24 01:26 Completed Troponin I Stat Lab 12/20/24 01:26 Completed Urinalysis Stat Lab 12/20/24 01:48 Completed Urine Culture Stat Lab 12/20/24 01:48 Received LORazepam [Ativan Inj] Med 12/20/24 01:48 Discontinued 2 mg IVP X1 ONE Labetalol IV [Trandate IV] Med 12/20/24 01:15 Active 10 mg IVP PRNMRX1 PRN Labetalol IV [Trandate IV] Med 12/20/24 01:15 Active 10 mg IVP PRNMRX1 PRN Labetalol IV [Trandate IV] Med 12/20/24 01:12 Discontinued 100 mg .ROUTE .STK-MED ONE NALOXONE INJ (Vial) [Narcan Inj (Vial)] Med 12/20/24 01:04 Discontinued 1 mg IVP X1 ONE Nicardipine/Ns 20Mg Ivpb [Cardene Ivpb] Med 12/20/24 01:15 Active 20 mg in 200 ml IV 5 mg/hr Ondansetron Inj [Zofran Inj] Med 12/20/24 01:01 Discontinued 4 mg IVP Q4HR PRN Ondansetron Inj [Zofran Inj] Med 12/20/24 02:54 Active 4 mg IVP Q6H PRN Pantoprazole Inj [Protonix Inj] Med 12/20/24 09:00 Active 40 mg IVP QDAY Sodium Chloride 0.9% 1000 ml [Ns] 1,000 ml Med 12/20/24 01:04 Discontinued IV 999 mls/hr Sodium Chloride 0.9% 1000 ml [Ns] 1,000 ml Med 12/20/24 01:15 Discontinued IV Q10H Tenecteplase Inj [TNKase Inj] Med 12/20/24 01:15 Discontinued 20 mg IV X1 ONE Tenecteplase Inj [TNKase Inj] Med 12/20/24 01:11 Discontinued 50 mg .ROUTE .STK-MED ONE Code Status Routine Oth 12/20/24 02:54 Ordered Oxygen Delivery NOW RT 12/20/24 01:01 Active Vital Signs Vital signs: Vital Signs Pulse Rate 111 H 12/20/24 01:02 Respiratory Rate 24 H 12/20/24 01:02 Blood Pressure 138/100 H 12/20/24 01:02 Pulse Oximetry (%) 95 12/20/24 01:02 Oxygen Delivery Method Nasal Cannula 12/20/24 01:02 Neuro Symptoms / Deficit MDM Narrative MDM Narrative:: Scribe Attestation: 12/20/24 - Xena Schulz am scribing for and in the presence of Dr. Carroll. 44yo male with a history of CHF, HTN BIBA from home presents to the ED for complaints of right facial droop and right arm drift that started just SUSTAINABILITY ANALYST. Patient was seen by me immediately upon arrival at 0058. Per EMS, patient was his usual self 20 minutes SUSTAINABILITY ANALYST when the patient's girlfriend noticed the patient having right facial droop and right arm drift. Patient was guided to the ground by his girlfriend. No falls or injuries. Blood sugar en route was 153. No drugs or alcohol. No other complaints reported. Patient data External records reviewed:: [facility] previous records (Per chart review, patient was seen here on 06/13/24 for anxiety.) and EMS form Clinical information provided by:: EMS Social determinants that could affect healthcare access:: none Patient has the following chronic illnesses:: CHF, HTN How is presenting disease/condition affected by chronic disease/condition?: uneffected by Evaluation data The following diagnostics were reviewed and interpreted by me:: lab results, radiology exam(s) and EKG tracing(s) (My interpretation of the EKG is: Sinus tachycardia (114 bpm) with nonspecific ST-T changes. Kenton Carroll MD) Lab and/or radiology exams considered but not ordered:: none Interpretation Summary: I reviewed all diagnostic test results. My interpretation of the EKG is sinus tachycardia with nonspecific ST-T changes. My interpretation of the chest x-ray is no acute findings, official radiology report is pending. My review of the CT head report is NAD. My review of the CT angio head and neck report is no acute findings. Blood tests remarkable for BNP 1992. UA unremarkable. UDS positive for methamphetamines and marijuana. Medications / Prescriptions Medications or Prescriptions considered but not ordered:: none Medication administrations:: Medication Administration History Nicardipine/Sodium Chloride (Cardene Ivpb) 20 mg in 200 mls @ 50 mls/hr IV .Q4H PRN; Protocol PRN Reason: Per Nicardipine Stroke Protocol Stop: 01/19/25 01:14 Labetalol HCl (Labetalol Inj 5 Mg/Ml Vial 20 Ml) 10 mg IVP PRNMRX1 PRN PRN Reason: SBP > 185 mmHg and/or DBP > 110 Labetalol HCl (Labetalol Inj 5 Mg/Ml Vial 20 Ml) 10 mg IVP PRNMRX1 PRN PRN Reason: SBP > 180 mmHg or DBP > 105 Ondansetron HCl (Ondansetron Inj 2 Mg/Ml Inj 2 Ml) 4 mg IVP Q6H PRN; Protocol PRN Reason: NAUSEA OR VOMITING Stop: 01/19/25 02:53 Pantoprazole Sodium (Pantoprazole Inj 40 Mg Vial) 40 mg IVP QDAY [facility] Stop: 01/19/25 08:59 Discontinued Medications Furosemide (Furosemide Inj 10 Mg/Ml 4ml Vial) 40 mg IVP X1 ONE Stop: 12/20/24 03:05 Last Admin: 12/20/24 03:15 Dose: 40 mg Documented By: KAREN Sodium Chloride (Ns) 1,000 mls @ 100 mls/hr IV Q10H GIO Stop: 01/19/25 01:14 Sodium Chloride (Ns) 1,000 mls @ 999 mls/hr IV .Q1H1M ONE Stop: 12/20/24 02:04 Last Admin: 12/20/24 01:34 Dose: Not Given Documented By: EE Non-Admin Reason: Cancelled by Provider Labetalol HCl (Labetalol Inj 5 Mg/Ml Vial 20 Ml) Confirm Administered Dose 100 mg .ROUTE .STK-MED ONE Stop: 12/20/24 01:13 Last Admin: 12/20/24 01:34 Dose: Not Given Documented By: EE Non-Admin Reason: Override Medication Lorazepam (Lorazepam 2 Mg/Ml Vial) 2 mg IVP X1 ONE Stop: 12/20/24 01:49 Last Admin: 12/20/24 02:58 Dose: Not Given Documented By: KAREN Non-Admin Reason: Cancelled by Provider Naloxone HCl (Naloxone Inj 0.4 Mg/Ml Vial) 1 mg IVP X1 ONE Stop: 12/20/24 01:05 Last Admin: 12/20/24 01:34 Dose: Not Given Documented By: KAREN Non-Admin Reason: Cancelled by Provider Ondansetron HCl (Ondansetron Inj 2 Mg/Ml Inj 2 Ml) 4 mg IVP Q4HR PRN PRN Reason: NAUSEA OR VOMITING Stop: 01/19/25 01:00 Tenecteplase (Tenecteplase Inj 50 Mg Vial) 20 mg IV X1 ONE Stop: 12/20/24 01:16 Last Admin: 12/20/24 01:26 Dose: 20 mg Documented By: KAREN Co-signed By: CYNTHIA Tenecteplase (Tenecteplase Inj 50 Mg Vial) Confirm Administered Dose 50 mg .ROUTE .STK-MED ONE Stop: 12/20/24 01:12 Last Admin: 12/20/24 01:34 Dose: Not Given Documented By: KAREN Non-Admin Reason: Override Medication TNK Consultations Consultation(s) initiated? (list below): Yes Consultation #1 (Physician, Specialty, Details): I discussed the case with our teleneurologist and ICU physician. About the presentation and exam and diagnostics and treatments here. And need of further care in the hospital. Will accept the patient. Diagnosis Neuro Differential Diagnosis: convulsions, delirium, subarachnoid hemorrhage, peripheral neuropathy, cerebrovascular accident, multiple sclerosis and transient cerebral ischemia Most likely diagnosis given after review of the tests above:: CVA Admission Indicated Admission indicated?: indicated Explain why admission is indicated or not indicated:: CVA Admission Request Was there a request for admission?: Yes Admission Attestation Admission request attestation: Discussed case with our ICU service regarding admission. Discussed patients ED course, exam findings, labs, and radiology results. Agreed to accept the patient for admission. Disposition Plan Disposition Plan: Admit Critical Care Time Critical Care Time Critical Care Time: Yes Total Critical Care Time (min.): 45 Attestation: Due to a high probability of clinically significant, life threatening deterioration, the patient required my highest level of preparedness to intervene emergently and I personally spent this critical care time directly and personally managing the patient. This critical care time included obtaining a history; examining the patient; ordering and review of studies; arranging urgent treatment with development of a management plan; evaluation of patient's response to treatment; frequent reassessment; and discussions with family and other providers. It was exclusive of separately billable procedures and treating other patients and teaching time. Kenton Carroll MD Discharge Plan Plan Patient Disposition: Admit Acute Care w/in Hospital Problem List Clinical Impression: CVA (cerebrovascular accident)
--- NOTE | 2024-12-20 01:01 | XR_ITS ---
Examination: CT brain head without contrast. 2-D sagittal coronal reconstructions Date and time of exam:December 20, 2024, 0107 hours Comparison June 04, 2023 INDICATIONS: Stroke alert, onset focal neurologic deficit today CTDI: vol (mGy):104.3 DLP: (mGycm):2114 Technique: Multiple CT axial sections of the brain have been obtained, 5 mm slice thickness. Contrast has not been administered. 2-D sagittal, coronal reconstructions have been obtained Low dose protocols were performed. One or more of the following dose reduction techniques were used; automated exposure control, adjustment of the mA and/or KV according to patient size, use of iterative reconstruction technique. Findings: The images are severely degraded by patient motion Ventricles are not enlarged No gross hemorrhage or mass effect IMPRESSION: No gross hemorrhage or mass effect
--- NOTE | 2024-12-20 01:02 | PC.NURSE ---
Case Consult 12/20/2024 01:01:56 PST Case # [id number] has been created.
--- NOTE | 2024-12-20 01:05 | XR_ITS ---
Examination: AP chest single view TECHNIQUE: AP portable supine chest single view Date and time: December 20, 2024, 0143 hours Comparison June 13, 2024 INDICATIONS: Stroke alert today, altered mental status, shortness of breath FINDINGS: Mild heart failure. Mild to moderate enlargement cardiac contour. Prominent vascular congestion and early septal pulmonary edema IMPRESSION: Mild CHF
--- NOTE | 2024-12-20 01:08 | PC.NURSE ---
BARBARA CARRASCO ON ASSESSING PT AT THIS TIME.
[2024-12-20] MEDS: TENECTEPLASE INJ 50 MG VIAL 20 MG IV (01:26)
[2024-12-20 01:53] LABS: Base Excess -1 (-3-3); HCO3 25 mEq/L (20-26); O2 Saturation 84 % (91-98); PCO2 42 mmHg (32.0-48.0); pH, Arterial 7.38 (7.35-7.45)
[2024-12-20 01:53] LABS: Collection Type, Urine Clean Catch; Squamous Epithelial Cell,Urine 0 /hpf (0-5)
[2024-12-20 01:54] LABS: Basophils # (Auto) 0.1 Thou/mm3 (0.0-0.2); Basophils % (Auto) 1 % (0-2.5); Eosinophils # (Auto) 0.1 Thou/mm3 (0.0-0.5); Eosinophils % (Auto) 1 % (0-10); Hematocrit 44.2 % (41.0-53.0); Hemoglobin 14.4 g/dL (13.5-16.0); Immature Granulocytes Auto 0.02 Thou/mm3 (0.00-0.00); Lymphocytes # (Auto) 2.7 Thou/mm3 (1.0-4.8); Lymphocytes % (Auto) 35 % (10-50); Mean Corpuscular HGB Conc 32.6 g/dl (31.0-37.0); Mean Corpuscular Hemoglobin 28.9 pg (25.0-35.0); Mean Corpuscular Volume 89 fL (80-100); Monocytes # (Auto) 0.6 Thou/mm3 (0.0-0.8); Monocytes % (Auto) 8 % (0-12); Neutrophils # (Auto) 4.2 Thou/mm3 (1.8-7.7); Neutrophils % (Auto) 54 % (37-80); Nucleated Red Blood Cell # 0.00 Thou/mm3 (0.00-0.00); Nucleated Red Blood Cell % 0 /100 WBC (0); Platelet Count 246 Thou/mm3 (140-440); RDW Standard Deviation 49.0 fL (35.1-43.9); Red Blood Count 4.98 Miln/mm3 (4.50-5.90); White Blood Count 7.7 Thou/mm3 (3.8-10.6)
[2024-12-20 01:56] LABS: Allen Test Performed/OK; Inspired Oxygen, FIO2 28 %; PO2 54 mmHg (83-108); Puncture Site Left Radial
--- NOTE | 2024-12-20 01:57 | ESCONSULT_ITS ---
Tele Neuro Consultation Consultation Date 12/20/24 Most Recent Vital Signs Last Vital Signs Pulse 100 12/20/24 01:07 Resp 26 H 12/20/24 01:07 BP 138/100 H 12/20/24 01:02 Pulse Ox 96 12/20/24 01:07 O2 Del Method Nasal Cannula 12/20/24 01:02 Consultation Narrative [facility] Consult [facility] Patient Name:???Bart Jackson Date of :???1980 Identification Number:??? Date of Service:???12/20/2024 01:01:56 Diagnosis:?I63.89 - Cerebrovascular accident (CVA) due to other mechanism ([facility]) Impression: ?44YOM with a PMHx of HTN and CHF presenting to the [place] ED in the setting of acute onset R hemiparesis. On exam, patient with dense R hemiplegia, global aphasia, and anarthria, with a forced L gaze deviation consistent with a left middle cerebral artery ischemic stroke. In setting of high concern for this, as well as age, lack of anticoagulation therapy at home, and very recent onset of symptoms, patient was deemed an excellent candidate for thrombolytic therapy. We attempted to obtain consent for thrombolytic therapy, and conveyed to patient that there is a small (appx 3%) risk of a major bleeding complication from administering this medication; however, in setting of patient's mental status, patient unable to provide consent at this time. On thorough chart review, no contraindications noted that would exclude patient from receiving thrombolytic therapy, and thus, we obtained a two-physician consent, given that this was deemed a medical emergency, to administer Tenecteplase. Thus, patient received Tenecteplase at 01:26 on 12/20/2024 without any immediate complications. Moving forwrad, recommend admission to the ICU for post-thrombolytic monitoring and stroke workup. Our recommendations are outlined below. Recommendations: IV Tenecteplase recommended. I confirmed the following. (Patient name, , MRN, Blood Pressure, dose of Thrombolytic and waste, weight completed by stretcher/scale not stated weight, have ED staff inform ED MD of thrombolytic decision) Thrombolytic bolus given Without Complication. IV Tenecteplase Total Dose ? 20.0 mg (Dose Rounding Per Facility Protocol) Routine post Thrombolytic monitoring including neuro checks and blood pressure control during/after treatment Monitor blood pressure Check blood pressure and neuro assessment every 15 min for 2 h, then every 30 min for 6 h, and finally every hour for 16 h. Manage Blood Pressure per post Thrombolytic protocol. ? Follow designated hospital protocol for admission and post thrombolytic care ? CT brain 24 hours post Thrombolytic ? NPO until swallowing screen performed and passed ? No antiplatelet agents or anticoagulants (including heparin for DVT prophylaxis) in first 24 hours ? No Ocasio catheter, nasogastric tube, arterial catheter or central venous catheter for 24 hr, unless absolutely necessary ? Telemetry ? Bedside swallow evaluation ? HOB less than 30 degrees ? Euglycemia ? Avoid hyperthermia, PRN acetaminophen ? DVT prophylaxis ? Inpatient Neurology Consultation ? Stroke evaluation as per inpatient neurology recommendations Discussed with ED physician Advanced Imaging: CTA Head and Neck Completed. LVO:No Patient is not a candidate for ROSALIE Metrics: Last Known Well: 12/20/2024 00:30:00 Dispatch Time: 12/20/2024 01:01:56 Arrival Time: 12/20/2024 00:58:00 Initial Response Time: 12/20/2024 01:06:12Symptoms: Sudden onset R sided weakness. Initial patient interaction: 12/20/2024 01:07:55 NIHSS Assessment Completed: 12/20/2024 01:15:42Patient is a candidate for Thrombolytic. Thrombolytic Medical Decision: 12/20/2024 01:15:43 Needle Time: 12/20/2024 01:26:30Weight Noted by Staff: [address] Head: I personally reviewed all the CT images that were available to me and it showed: no blood products or early ischemic changes Primary Provider Notified of Diagnostic Impression and Management Plan on: 12/20/2024 01:39:17 Thrombolytic Contraindications: Last Known Well > 4.5 hours:?No CT Head showing hemorrhage:?No Ischemic stroke within 3 months:?No Severe head trauma within 3 months:?No Intracranial/intraspinal surgery within 3 months:?No History of intracranial hemorrhage:?No Symptoms and signs consistent with an SAH:?No GI malignancy or GI bleed within 21 days:?No Coagulopathy: Platelets <100 000 /mm3, INR >1.7, aPTT>40 s, or PT >15 s:?No Treatment dose of LMWH within the previous 24 hrs:?No Use of NOACs in past 48 hours:?No Glycoprotein IIb/IIIa receptor inhibitors use:?No Symptoms consistent with infective endocarditis:?No Suspected aortic arch dissection:?No Intra-axial intracranial neoplasm:?No Thrombolytic Decision and Management Plan: Management with thrombolytic treatment was explained to the Two Physician Consent as was risks and benefits and alternatives to the treatment. Patient agrees with the decision to proceed with thrombolytic treatment. . All questions were answered and the Two Physician Consent expressed understanding of the treatment plan. History of Present Illness:Patient is a 44 year old Male. Patient was brought by EMS for symptoms of Sudden onset R sided weakness. 44YOM with a PMHx of HTN, CHF, presenting to the [place] ED in the setting of sudden onset R facial weakness. Per staff and per EMS, symptom onset 20mins prior to arrival; patient was talking to his partner when he had a sudden onset of R facial weakness, prompting partner to immediately call EMS. On arrival, patient minimally responsive, thrashing with his L hemibody yet minimal R sided movement with no usable speech formation. No known history of strokes or seizures and no recent trauma or falls. Past Medical History: ?Hypertension ?There is no history of Diabetes Mellitus ?There is no history of Atrial Fibrillation ?There is no history of Stroke Medications: No Anticoagulant use? No Antiplatelet use Reviewed EMR for current medications Allergies:? Reviewed Social History: Smoking: Yes Drug Use: No Family History: There is no family history of premature cerebrovascular disease pertinent to this consultation ROS : 14 Points Review of Systems was performed and was negative except mentioned in HPI. Past Surgical History: There Is No Surgical History Contributory To Today?s Visit Examination: BP(140/98),?Pulse(103), 1A: Level of Consciousness - Requires repeated stimulation to arouse?+ 2 1B: Ask Month and Age - Aphasic?+ 2 1C: Blink Eyes & Squeeze Hands - Performs 0 Tasks?+ 2 2: Test Horizontal Extraocular Movements - Forced Gaze Palsy: Cannot Be Overcome ?+ 2 3: Test Visual Briceño - No Visual Loss?+ 0 4: Test Facial Palsy (Use Grimace if Obtunded) - Partial paralysis (lower face)? + 2 5A: Test Left Arm Motor Drift - Some Effort Against [place]?+ 2 5B: Test Right Arm Motor Drift - No Movement?+ 4 6A: Test Left Leg Motor Drift - Some Effort Against [place]?+ 2 6B: Test Right Leg Motor Drift - No Movement?+ 4 7: Test Limb Ataxia (FNF/Heel-Majano) - No Ataxia?+ 0 8: Test Sensation - No Response and Quadriplegic?+ 2 9: Test Language/Aphasia - Mute/Global Aphasia: No Usable Speech/Auditory Comprehension?+ 3 10: Test Dysarthria - Mute/Anarthric?+ 2 11: Test Extinction/Inattention - No abnormality?+ 0 NIHSS Score:?29 Pre-Morbid Modified [place] Scale:0 Points = No symptoms at all Spoke with :?Dr Carroll This consult was conducted in real time using interactive audio and video technology. Patient was informed of the technology being used for this visit and agreed to proceed. Patient located in hospital and provider located at home/office setting. Patient is being evaluated for possible acute neurologic impairment and high probability of imminent or life-threatening deterioration. I spent total of 35 minutes providing care to this patient, including time for face to face visit via telemedicine, review of medical records, imaging studies and discussion of findings with providers, the patient and/or family. Dr Jason Thacker [facility] For Inpatient follow-up with [facility] physician please call [facility] at . As we are not an outpatient service for any post hospital discharge needs please contact the hospital for assistance. If you have any questions for the [facility] physicians or need to reconsult for clinical or diagnostic changes please contact us via [facility] at .
[2024-12-20 01:58] LABS: Bacteria,Urine Rare; Bilirubin,Urine Negative (Negative); Blood,Urine 1+ (Negative); Clarity,Urine Clear (Clear/Hazy); Color,Urine Lt-Yellow (Lt Yel-Yel); Glucose, Urine Negative (Negative); Ketones,Urine Negative (Negative); Leukocyte Esterase,Urine Negative (Negative); Nitrite,Urine Negative (Negative); PH,Urine 6.5 (5.0-7.0); Protein,Urine Trace (Neg - Trace); RBC,Urine 5 /hpf (0-3); Specific Gravity,Urine 1.049 (1.001-1.035); Urobilinogen,Urine Negative mg/dL (0.0-1.0); WBC,Urine 3 /hpf (0-5)
[2024-12-20 02:05] LABS: Amphetamine/Methamp Scrn,U Positive (Negative); Barbiturate Screen,Urine Negative (Negative); Benzodiazepines Screen,Urine Negative (Negative); Benzoylecgonine Screen, Ur Negative (Negative); Fentanyl Screen,Urine Negative (Negative); Opiate Screen,Urine Negative (Negative); THC Screen,Urine Positive (Negative)
[2024-12-20 02:07] LABS: INR 1.2 (0.9-1.3); Partial Thromboplastin Time 26.4 Seconds (22.0-36.0); Prothrombin Time 13.1 Seconds (9.0-12.2)
[2024-12-20 02:11] LABS: Ammonia 27 uMol/L (11-32)
[2024-12-20 02:13] LABS: B-Type Natriuretic Peptide 1992 pg/mL (0-100)
[2024-12-20 02:20] LABS: Alanine Aminotransferase 36 U/L (10-49); Albumin, Serum 3.8 gm/dL (3.5-5.0); Albumin/Globulin Ratio 1.6 (1.2-2.2); Alcohol, Blood Medical < 3.0 mg/dL (0-10.0); Alkaline Phosphatase 73 U/L (46-116); Anion Gap 10 (7-16); Aspartate Amino Transferase 36 U/L (0-34); BUN/Creatinine Ratio 14 Ratio (12-20); Bilirubin,Direct 0.5 mg/dL (0.0-0.3); Bilirubin,Total 1.4 mg/dL (0.3-1.2); Blood Urea Nitrogen 18 mg/dL (9-23); Calcium 8.7 mg/dL (8.3-10.6); Calcium (Corrected) 8.9 mg/dL (8.5-10.1); Carbon Dioxide 24.8 mMol/L (20.0-31.0); Chloride 104 mMol/L (98-107); Creatine Kinase 119 U/L (34-171); Creatinine (Component) 1.3 mg/dL (0.6-1.3); Estimated Creatinine Clearance 78.8 mL/min (>60); Free T4 (Free Thyroxine) 1.38 ng/dL (0.89-1.76); Globulin 2.4 gm/dL (2.3-3.5); Glucose 126 mg/dL (74-106); Magnesium 2.0 mg/dL (1.6-2.6); Osmolality,Calculated 281 (275-295); Potassium 3.8 mMol/L (3.4-5.1); Sodium 139 mMol/L (136-145); Thyroid Stimulating Hormone 8.34 uIU/mL (0.55-4.78); Total Protein 6.2 gm/dL (5.7-8.2); Troponin I 0.025 ng/mL (0.0-0.045); eGFR > 60 See Note
--- NOTE | 2024-12-20 02:23 | PRELIM_ITS ---
CT scan of the head without intravenous contrast (axial sections with sagittal and coronal reformats) December 20, 2024 0107 hours Clinical History: Focal neuro deficit, stroke suspected. Comparison: CT head study dated June 04, 2023. Findings: The evaluation is limited due to motion artifact. There is no gross evidence of intracranial hemorrhage, mass effect or midline shift. There is mild volume loss. The calvarium appears intact. The mastoid air cells and the visualized paranasal sinuses appear clear. Impression: 1. Motion limited evaluation as described. No gross evidence of intracranial hemorrhage, mass effect or midline shift. Suggest motion free rescan or further evaluation with MRI as clinically indicated. Please refer to report on CT angiogram submitted separately. Report Electronically Signed By: Shankar Corral 12/20/2024 2:23:28 AM [EST]
--- NOTE | 2024-12-20 02:26 | PRELIM_ITS ---
CT angiogram of the head and neck with intravenous contrast (axial sections with sagittal and coronal reformats) December 20, 2024 0115 hours Clinical History: Focal neuro deficit, stroke suspected. Comparison: Correlated with the prior CT study performed earlier today at 0107 hours Findings: The evaluation is limited due to suboptimal opacification of the arteries. Head: The internal carotid, middle and anterior cerebral arteries are otherwise patent bilaterally. The A1 segment of the right anterior cerebral artery is hypoplastic, a normal variant. The intracranial vertebral arteries are patent. The vertebrobasilar junction, basilar and posterior cerebral arteries are patent. No evidence of large vessel occlusion, critical stenosis or aneurysm. Neck: The aortic arch to the extent visualized as well as the origins of the right brachiocephalic, left common carotid, and left subclavian arteries are patent. The common carotid arteries, carotid bulbs, and internal and external carotid arteries are patent. The origins of the vertebral arteries are unremarkable. The left vertebral artery is dominant. No evidence of vascular occlusion, critical stenosis, dissection or aneurysm. The soft tissues of the neck are unremarkable. The osseous structures are unremarkable . The lungs demonstrate heterogeneous attenuation with ill-defined ground-glass airspace opacities. Impression: Limited evaluation as described. Head: No evidence of large vessel occlusion, critical stenosis or aneurysm. Neck: 1. No evidence of vascular occlusion, critical stenosis, dissection or aneurysm. 2. Heterogeneous attenuation of the lungs with ill-defined ground-glass airspace opacities, which may represent interstitial pulmonary edema. Recommend clinical correlation. Report Electronically Signed By: Shankar Corral 12/20/2024 2:25:05 AM [EST]
--- NOTE | 2024-12-20 02:54 | ECHO_ITS ---
Transthoracic Echo Report Ht (in): 72 Wt (lb): 172 Exam Location: Echo Lab Status: Inpatient [employer] Shoth[employer] Driller: Susana Cortez Indications: Procedure Performed: BP: 132 / 101 HR: 116 Technical Quality: Adequate MEASUREMENTS (Male / Female) Normal Values 2D ECHO LVOT Diameter 2.0 cm LA Volume Index 81.1 cm?/m? 16 - 28 cm?/m? Ascending Aorta Diameter 3.2 cm M-MODE LV Diastolic Diameter MM 6.8 cm 4.2 - 5.9 / 3.9 - 5.3 cm LV Systolic Diameter MM 6.6 cm LV Ejection Fraction MM Teich 8.1 % LV Cardiac Index MM Teich 1134.9 cm?/min?m? IVS Diastolic Thickness MM 0.8 cm 0.6 - 1.0 / 0.6 - 0.9 cm LVPW Diastolic Thickness MM 0.9 cm 0.6 - 1.0 / 0.6 - 0.9 cm LV Relative Wall Thickness MM 0.3 0.24 - 0.42 / 0.22 - 0.42 LV Mass Index MM 128.9 g/m? 49 - 115 / 43 - 95 g/m? AV Cusp Separation MM 1.8 cm DOPPLER AV Peak Velocity 48.9 cm/s AV Peak Gradient 1.0 mmHg LVOT Peak Velocity 49.7 cm/s LVOT Peak Gradient 1.0 mmHg AV Area Cont Eq pk 3.2 cm? MR Peak Velocity 428.0 cm/s MR Peak Gradient 73.3 mmHg MR ERO PISA 0.6 cm? TR Peak Velocity 213.5 cm/s TR Peak Gradient 18.2 mmHg PV Peak Velocity 57.4 cm/s PV Peak Gradient 1.3 mmHg FINDINGS Left Ventricle Left ventricle is markedly dilated with left ventricular end-diastolic diameter of 6.8 cm with severe global hypokinesis anteroseptal akinesis left ventricle ejection fraction severely depressed. Approximate left ventricle ejection fraction is 15 to 20%. Right Ventricle The right ventricle is normal in size mild RV dysfunction. The estimated right ventricular systolic pressure, 18mmHg. Left Atrium The left atrial cavity size is severely increased. Right Atrium The right atrial cavity size is severely increased. Atrial Septum The interatrial septum appears normal with no evidence of a shunt. Bubble study negative for PFO/ASD. Aorta The aorta is normal by two-dimensional, color flow and Doppler interrogation. Mitral Valve The mitral valve is normal by two-dimensional, color flow and Doppler interrogation. There is moderate eccentric mitral regurgitation. Aortic Valve The aortic valve is trileaflet and normal by two-dimensional, color flow and Doppler interrogation. There is no significant aortic valve regurgitation. Tricuspid Valve The tricuspid valve is normal by two-dimensional, color flow and Doppler interrogation. There is mild tricuspid regurgitation. Pulmonic Valve The pulmonic valve is not well visualized. There is no significant pulmonic valve regurgitation. Vessels The pulmonary artery appears normal. The inferior vena cava is severely dilated without collapse. Pericardium The pericardium is normal by two-dimensional imaging. There is no significant pericardial effusion. CONCLUSIONS Indications: CHF/Possible Stroke Dilated cardiomyopathy markedly dilated left ventricle with severe global systolic dysfunction ejection fraction 15 to 20% Normal-sized right ventricle with mild dysfunction of the right ventricle. Moderate mitral regurgitation secondary to dilated mitral annulus. Mild to moderate tricuspid regurgitation normal PA pressure. No evidence of cardiac thrombus Bubble study is negative for intracardiac shunts negative for PFO byBob Erwin (Electronically Signed) Final Date: 20 December 2024 12:52
--- NOTE | 2024-12-20 03:05 | ESHP_ITS ---
Documentation for date of: 12/20/24 [facility] History of Present Illness Chief complaint: right sided weakness History of present illness: Patient is a 44 years old male with PMH of CHF and methamphetamine and THC use disorder presented to the ED due to right-sided weakness and agitation. Patient is somnolent and is not able to answer questions, he is at the bedside helps with the history. She reports he suddenly became agitated and was not able to use his right arm and leg and she took him to the emergency room. She reports he is using methamphetamine and marijuana but is unaware when he used last time. He drinks alcohol occasionally. He was previously seen in the emergency room for pneumonia, he later followed up with his PCP and was diagnosed with CHF and started on Lasix. On arrival to the ED his blood pressure 178/100, pulse 111, respirations 24, oxygen saturation 95% on room air. Labs showed glucose 126, total bilirubin 1.4, BNP 1992, TSH 8.34. Urinalysis showed blood 1+, RBCs 5. U tox showed positive amphetamine and THC. ABG showed pH 7.38, PO2 54, PCO2 42. Head CT and CTA showed no LVO, hemorrhage or mass effect. Teleneuro was consulted and patient was given tenecteplase at 1:26 AM. Several minutes after TNK administration patient was able to move his right upper and lower extremity however continued to be uncooperative so full assessment was deferred. He was admitted to ICU for further management. PMH: CHF and methamphetamine and THC use disorder. PSH: Unknown. SH: Per : Uses methamphetamine and marijuana. Drinks alcohol occasionally. Denies smoking tobacco. FH: Unknown. Allergies: NKA. Medications: Med rec is pending. Review of Systems Review of Systems ROS Unobtainable: unobtainable due to mental status Exam Vital Signs Pulse Resp BP Pulse Ox O2 Del Method O2 Flow Rate 120 H 26 H 145/89 H 98 Nasal Cannula 3 12/20/24 01:56 12/20/24 01:56 12/20/24 01:56 12/20/24 01:56 12/20/24 01:56 12/20/24 01:56 Narrative Exam Gen: Well-developed and well-nourished male. HEENT: NCAT, MMM, anicteric conjunctivae, limited exam due to mental status. CVS: normal S1 and S2. Regular tachycardia. No M/R/G. Resp: crackles B/L. No rhonchi, rales, or wheezing. Javier batista breathing pattern noted. Abd: soft, non-tender, non-distended. BS+ in all 4 quadrants. MSK: Good ROM in BUE & BLE. 1+ edema BLE. Mottling noted over B/L knees. Neuro: limited exam due to mental status, able to move all extremities, extremily somnolent and uncooperative. Results: Labs 12/20/24 03:42 12/20/24 03:42 Labs: Short CBC 12/20/24 Range/Units 01:26 WBC 7.7 (3.8-10.6) Thou/mm3 Hgb 14.4 (13.5-16.0) g/dL Hct 44.2 (41.0-53.0) % Plt Count 246 (140-440) Thou/mm3 BMP 12/20/24 01:26 Sodium 139 Potassium 3.8 Chloride 104 Carbon Dioxide 24.8 BUN 18 Creatinine 1.3 Glucose 126 H Calcium 8.7 Cardiac Enzymes 12/20/24 Range/Units 01:26 Total Creatine Kinase 119 (34-171) U/L Troponin I 0.025 (0.0-0.045) ng/mL Liver Function 12/20/24 Range/Units 01:26 Total Bilirubin 1.4 H (0.3-1.2) mg/dL Direct Bilirubin 0.5 H (0.0-0.3) mg/dL AST 36 H (0-34) U/L ALT 36 (10-49) U/L Alkaline Phosphatase 73 (46-116) U/L Albumin 3.8 (3.5-5.0) gm/dL Urine 12/20/24 Range/Units 01:48 Urine Color Lt-Yellow (Lt Yel-Yel) Urine Clarity Clear (Clear/Hazy) Urine pH 6.5 (5.0-7.0) Ur Specific [place] 1.049 H (1.001-1.035) Urine Protein Trace (Neg - Trace) Urine Glucose (UA) Negative (Negative) ABG Interpretation ABG results: 12/20/24 01:43 ABG pH 7.38 ABG pCO2 42 ABG pO2 54 L* ABG HCO3 25 ABG O2 Saturation 84 L ABG Base Excess -1 Quality Measures Quality Measures stroke Suspected type of Stroke: Acute Ischemic Tenecteplase given: within 60 min of arrival Rehab services: PT evaluation ordered and Speech Language Pathology eval ordered VTE Prophylaxis: mechanical Antithrombotic by day 2:: not indicated (describe) (no for first 24 hrs) Statin ordered: not ordered Anticoagulation ordered for A-fib or flutter (current or hx): not indicated Medications Home Medications and Allergies Allergies Allergy/AdvReac Type Severity Reaction Status Date / Time NKA* Allergy Uncoded 06/13/24 14:00 Visit Medications Nicardipine/Sodium Chloride (Cardene Ivpb) 20 mg in 200 mls @ 50 mls/hr IV .Q4H PRN; Protocol PRN Reason: Per Nicardipine Stroke Protocol Stop: 01/19/25 01:14 Labetalol HCl (Labetalol Inj 5 Mg/Ml Vial 20 Ml) 10 mg IVP [id number] PRN PRN Reason: SBP > 185 mmHg and/or DBP > 110 Labetalol HCl (Labetalol Inj 5 Mg/Ml Vial 20 Ml) 10 mg IVP [id number] PRN PRN Reason: SBP > 180 mmHg or DBP > 105 Ondansetron HCl (Ondansetron Inj 2 Mg/Ml Inj 2 Ml) 4 mg IVP Q6H PRN; Protocol PRN Reason: NAUSEA OR VOMITING Stop: 01/19/25 02:53 Pantoprazole Sodium (Pantoprazole Inj 40 Mg Vial) 40 mg IVP QDAY [facility] Stop: 01/19/25 08:59 Discontinued Medications Furosemide (Furosemide Inj 10 Mg/Ml 4ml Vial) 40 mg IVP X1 ONE Stop: 12/20/24 03:05 Sodium Chloride (Ns) 1,000 mls @ 100 mls/hr IV Q10H GIO Stop: 01/19/25 01:14 Sodium Chloride (Ns) 1,000 mls @ 999 mls/hr IV .Q1H1M ONE Stop: 12/20/24 02:04 Last Admin: 12/20/24 01:34 Dose: Not Given Lorazepam (Lorazepam 2 Mg/Ml Vial) 2 mg IVP X1 ONE Stop: 12/20/24 01:49 Last Admin: 12/20/24 02:58 Dose: Not Given Naloxone HCl (Naloxone Inj 0.4 Mg/Ml Vial) 1 mg IVP X1 ONE Stop: 12/20/24 01:05 Last Admin: 12/20/24 01:34 Dose: Not Given Ondansetron HCl (Ondansetron Inj 2 Mg/Ml Inj 2 Ml) 4 mg IVP Q4HR PRN PRN Reason: NAUSEA OR VOMITING Stop: 01/19/25 01:00 Tenecteplase (Tenecteplase Inj 50 Mg Vial) 20 mg IV X1 ONE Stop: 12/20/24 01:16 Last Admin: 12/20/24 01:26 Dose: 20 mg Assessment & Plan Plan Patient is a 44 years old male with PMH of CHF and methamphetamine and THC use disorder presented to the ED due to right-sided weakness and agitation, was admitted to ICU after TNK administration per stroke protocol. Neuro: #Acute CVA. Presented with right-sided weakness, which resolved(improved?) after TNK administration, complete assessment is deferred due to mental status. Tele neuro consulted in the ED, NIHSS Score:?29, tenecteplase 20 mg administered in the ED at 1:26 AM on 12/20/2024. CT and CTA preliminary negative for hemorrhage, mass effect or LVO. Plan: - Admitted to ICU. - CT brain 24 hours post Thrombolytic. - NPO until swallowing eval. - No antiplatelet agents or anticoagulants (including heparin for DVT prophylaxis) in first 24 hours. - No Ocasio catheter (inserted in the ED), nasogastric tube, arterial catheter or central venous catheter for 24 hr, unless absolutely necessary. - HOB less than 30 degrees. - Euglycemia, avoid hyperthermia, PRN acetaminophen. - DVT prophylaxis SCDs. - Inpatient Neurology Consultation ordered. - Neuro checks and blood pressure control every 15 min for 2 h, then every 30 min for 6 h, and finally every hour for 16 h. - MRI stroke protocol. #Acute encephalopathy. Unknown reason, possible due to CVA vs substance ingestion (positive THC and meth, is unaware if he used any today). No trauma, fever, chills reported. Plan: - Monitor patient with frequent neuro checks. Cardiovascular: #CHF exacerbation. Patient presented with Javier batista breathing pattern, B/L crackles, BLE 1+ pitting edema. Uses meth for long time. reported he was previously started on Lasix. No echo on file. BNP 1991, troponin I negative. Plan: - Echo ordered. - Given Lasix 40 mg x1 IV. - Strict VIDAL. - consider cardio consult. Respiratory: #Pulmonary edema. Presented with B/L crackles, CXR showed bilateral opacities, likely pulmonary edema, pending radiology read. Plan: - given 40 mg of Lasix x1 IV, consider scheduled dose. Gastrointestinal: #Elevated total bilirubin. T.bili 1.4, direct bili 0.5. Reason is unknown. Plan: - monitor with daily labs. - consider abdominal imaging. Renal: #TERRY. Baseline Cr 0.9, on admission Cr 1.3, likely due to fluid overload status, given dose of lasix. Plan: - avoid nephrotoxic agents. - renally dose medications. - strict VIDAL. - monitor with daily labs. Endocrine: #Subclinical hypothyroidism. On admission TSH 8.34, free T4 1.38. Plan: - consider further work up. Infectious Disease: No active problem. Hematology/Oncology: No active problem. Diet: NPO, pending swallow eval. DVT prophylaxis: SCDs. GI prophylaxis: Famotidine. Code status: full code. Disposition: ICU, s/p TNK. Plan of care discussed with ICU attending Dr. Vanegas. Stanislav Osorio MD, PGY 3. Disclaimer: This note was dictated by speech recognition. Minor errors in upsetting machine operator may be present due to voice recognition software. Attending Provider Attestation/Addendum I have examined the patient, reviewed labs and imaging findings, discussed the case with the resident(s), and reviewed entered orders. I agree with the plan of care as outlined in this note, with these additional summaries/recommendations: After examination of the patient and review of the clinical data, I feel that this patient needs admission to the hospital for further treatment and evaluation. Patient is a 44-year-old male with a medical history of polysubstance abuse, primary hypertension, anxiety, and recent diagnosis of CHF with unknown EF presents to [facility] emergency department on 12/20/2024 with chief complaint altered mental status and right facial droop. Stroke alert was called in the emergency department. Patient and spouse seen at bedside. Currently patient has a [place] coma score of 8 points. Patient will be admitted for acute encephalopathy and likely CVA. On admission patient was noted to have dense right hemiplegia, global aphasia, aphasia, and left gaze deviation. Stroke alert was called in the emergency department and patient was seen by teleneurology. NIHSS score of [address] head without contrast showed no acute hemorrhage, mass effect or midline shift. CTA head and neck showed no LVO or critical stenosis. Patient was deemed a tPA candidate and received IV tenecteplase. Continue routine postthrombolytic monitoring including neurochecks and blood pressure control with neuroassessment every 15 minutes x 2 hours, then every 30 minutes x 6 hours, and finally every hour for [address] head in 24 hours and order MRI brain. N.p.o. until swallow screen. Order physical therapy consultation. No antiplatelet agents for the first 24 hours. No catheter placements unless absolutely necessary. HOB less than 30 degrees. Consult in-house neurology, recommendations appreciated. Start high intensity statin when able. Order vascular risk factors with A1c, lipid panel, and TSH. Patient also diagnosed with acute encephalopathy. Etiology possibly toxic from polysubstance abuse versus structural from CVA. Urine toxicology positive for methamphetamines and THC. Continue nonformed measures to prevent delirium and attempt to avoid sedating medications. Patient will need extensive counseling and psychotherapist social worker referral once mentation is more improved. Per spouse patient also recently received a diagnosis of CHF in [place]. Ejection fraction unknown. Patient also diagnosed with acute CHF exacerbation. BNP 1992 and bilateral lower extremity edema. Order echocardiogram with bubble study. Continue with diuresis and will institute goal-directed medical therapy based off echocardiogram. Strict I's and O's, fluid restriction, and cardiac diet once tolerating. Minimal hyperbilirubinemia present likely secondary to congestive hepatopathy and repeat level in AM. Avoid hepatotoxic agents. We will continue to monitor patient closely and will proceed with intubation if GCS worsens. Spouse updated on the plan and in agreement. All questions answered to satisfaction. Please see residents note for additional details and management. Dr. Guilherme MD
[2024-12-20] MEDS: FUROSEMIDE INJ 10 MG/ML 4ML VIAL 40 MG IVP (03:15)
[2024-12-20 04:03] LABS: Basophils # (Auto) 0.1 Thou/mm3 (0.0-0.2); Basophils % (Auto) 1 % (0-2.5); Eosinophils # (Auto) 0.1 Thou/mm3 (0.0-0.5); Eosinophils % (Auto) 1 % (0-10); Hematocrit 43.9 % (41.0-53.0); Hemoglobin 14.9 g/dL (13.5-16.0); Immature Granulocytes Auto 0.03 Thou/mm3 (0.00-0.00); Lymphocytes # (Auto) 1.2 Thou/mm3 (1.0-4.8); Lymphocytes % (Auto) 17 % (10-50); Mean Corpuscular HGB Conc 33.9 g/dl (31.0-37.0); Mean Corpuscular Hemoglobin 28.7 pg (25.0-35.0); Mean Corpuscular Volume 85 fL (80-100); Monocytes # (Auto) 0.2 Thou/mm3 (0.0-0.8); Monocytes % (Auto) 3 % (0-12); Neutrophils # (Auto) 5.3 Thou/mm3 (1.8-7.7); Neutrophils % (Auto) 78 % (37-80); Nucleated Red Blood Cell # 0.00 Thou/mm3 (0.00-0.00); Nucleated Red Blood Cell % 0 /100 WBC (0); Platelet Count 223 Thou/mm3 (140-440); RDW Standard Deviation 46.4 fL (35.1-43.9); Red Blood Count 5.19 Miln/mm3 (4.50-5.90); White Blood Count 6.8 Thou/mm3 (3.8-10.6)
[2024-12-20 04:16] LABS: Alanine Aminotransferase 40 U/L (10-49); Albumin, Serum 4.1 gm/dL (3.5-5.0); Albumin/Globulin Ratio 1.5 (1.2-2.2); Alkaline Phosphatase 78 U/L (46-116); Anion Gap 11 (7-16); Aspartate Amino Transferase 40 U/L (0-34); BUN/Creatinine Ratio 15 Ratio (12-20); Bilirubin,Total 1.5 mg/dL (0.3-1.2); Blood Urea Nitrogen 18 mg/dL (9-23); Calcium 9.1 mg/dL (8.3-10.6); Calcium (Corrected) 9.1 mg/dL (8.5-10.1); Carbon Dioxide 23.2 mMol/L (20.0-31.0); Cardiac Risk Estimate 3.0 RATIO (4.0-6.7); Chloride 105 mMol/L (98-107); Cholesterol 158 mg/dL (132-200); Creatinine (Component) 1.2 mg/dL (0.6-1.3); Estimated Creatinine Clearance 85.3 mL/min (>60); Globulin 2.7 gm/dL (2.3-3.5); Glucose 164 mg/dL (74-106); HDL Cholesterol 52 mg/dL (40-60); LDL Cholesterol,Calculated 82 mg/dL (0-130); Magnesium 2.0 mg/dL (1.6-2.6); Osmolality,Calculated 283 (275-295); Potassium 3.8 mMol/L (3.4-5.1); Sodium 139 mMol/L (136-145); Total Protein 6.8 gm/dL (5.7-8.2); Triglycerides 122 mg/dL (30-150); eGFR > 60 See Note
--- NOTE | 2024-12-20 08:55 | PCS.ST ---
Swallow Evaluation completed. No dysphagia. Feed only when pt can sustain a level of alertness to actively participate. Speech/Language/Cognitive Eval pending.
[2024-12-20] MEDS: FAMOTIDINE INJ 10 MG/ML VIAL 2 ML 20 MG IVP ×2 (09:35→20:30)
[2024-12-20] MEDS: POTASSIUM CHL 10 mEq IVPB 10 MEQ/100 ML BAG 75 MEQ IV ×4 (09:41→15:23)
--- NOTE | 2024-12-20 10:11 | ESPR_ITS ---
<Statement entered by Colt Motta MD - 12/20/24 13:58> TOTAL TIME: 45MINUTES ON DIRECT MEDICAL CARE, MANAGEMENT - COORDINATION AND COUNSELING > 50% OF TOTAL TIME I saw and evaluated the patient. I reviewed the resident?s note and agree with findings and plan as documented in the resident?s note. Improvement of right-sided weakness post lytics. Continue close neuro observation and repeat CT scan after 24 hours from initial study. Severe systolic congestive heart failure, possibly related to chronic methamphetamine abuse. Outpatient cardiology workup will be required. Intentionally with holding GDMT until tomorrow given permissive hypertension post lytics Javier-Zhao respiration secondary to severe systolic congestive heart failure noted. Documentation for date of: 12/20/24 Subjective Subjective Interval history: A 44-year-old male patient with past medical history of CHF, polysubstance use disorder, presented to the ED with facial droop, right sided weakness, slurred speech, and agitation. Reported LKW was at 12:25 AM, called ambulance at 12:37 AM. reported his symptoms started as facial droop followed by slurred speech, confusion and right-sided weakness and inability to stand up. Stroke alert was initiated patient was started on single dose of tenecteplase and was admitted to ICU for close neurological monitoring. Patient GCS of 14, showed improvement of his weakness on the right side. Able to move all extremities against gravity. However, Patient is lethargic. Noticed to have Javier-Zhao breathing, no signs of worsening neurological symptoms. Exam Vital Signs Temp Pulse Resp BP Pulse Ox O2 Del Method O2 Flow Rate 98.2 F 116 H 27 H 133/102 H 92 L Nasal Cannula 1 12/20/24 08:00 12/20/24 08:15 12/20/24 08:15 12/20/24 08:15 12/20/24 08:15 12/20/24 08:00 12/20/24 08:00 Narrative Exam GEN: Sleepy, able to wake up, opens eyes answer single word answers. Unable to assess orientation due to his lethargy. HEENT: NC/AC, unable to assess pupil reflex, patient squint his eyes and does not want to open. No facial asymmetry noticed. CVS: RRR, S1-S2 present, no murmurs appreciated RESP: Fine crepitations at the lower lung fortune, no wheezing. No respiratory distress. Javier-Zhao respiratory pattern GI: soft,non distended, non tender, NBS MSK: able to move all 4 limbs, trace lower extremity edema SKIN: warm and dry [employer] WORKMAN: Unable to assess cranial nerves due to patient's lethargy, patient responds to pain in all 4 extremities, able to move all 4 extremities however unable to assess strength because of his lethargy. Objective Labs 12/20/24 03:42 12/20/24 03:42 Labs: Laboratory Results - last 24 hr 12/20/24 12/20/24 12/20/24 01:26 01:43 01:48 WBC 7.7 RBC 4.98 Hgb 14.4 Hct 44.2 MCV 89 MCH 28.9 MCHC 32.6 RDW Std Deviation 49.0 H Plt Count 246 Neut % (Auto) 54 Lymph % (Auto) 35 Atkinson % (Auto) 8 Eos % (Auto) 1 Baso % (Auto) 1 Neut # (Auto) 4.2 Lymph # (Auto) 2.7 Atkinson # (Auto) 0.6 Eos # (Auto) 0.1 Baso # (Auto) 0.1 Immature Gran # (Auto) 0.02 H Absolute Nucleated RBC 0.00 Immature Gran % 0 Nucleated RBC % 0 PT 13.1 H INR 1.2 APTT 26.4 Puncture Site Left Radial ABG pH 7.38 ABG pCO2 42 ABG pO2 54 L* ABG HCO3 25 ABG O2 Saturation 84 L ABG Base Excess -1 FiO2 28 Sodium 139 Potassium 3.8 Chloride 104 Carbon Dioxide 24.8 Anion Gap 10 BUN 18 Creatinine 1.3 Estim Creat Clear Calc 78.8 eGFR > 60 BUN/Creatinine Ratio 14 Glucose 126 H Calculated Osmolality 281 Calcium 8.7 Corrected Calcium 8.9 Magnesium 2.0 Total Bilirubin 1.4 H Direct Bilirubin 0.5 H AST 36 H ALT 36 Alkaline Phosphatase 73 Ammonia 27 Total Creatine Kinase 119 Troponin I 0.025 B-Natriuretic Peptide 1992 H* Total Protein 6.2 Albumin 3.8 Globulin 2.4 Albumin/Globulin Ratio 1.6 Triglycerides Cholesterol LDL Cholesterol, Calc HDL Cholesterol Cholesterol/HDL Ratio TSH 8.34 H Free T4 1.38 Ur Collection Type Clean Catch Urine Color Lt-Yellow Urine Clarity Clear Urine pH 6.5 Ur Specific [place] 1.049 H Urine Protein Trace Urine Glucose (UA) Negative Urine Ketones Negative Urine Blood 1+ A Urine Nitrite Negative Urine Bilirubin Negative Urine Urobilinogen (Auto) Negative Ur Leukocyte Esterase Negative Urine RBC 5 H Urine WBC 3 Ur Squamous Epith Cells 0 Urine Bacteria Rare Urine Opiates Screen Negative Urine Fentanyl Screen Negative Ur Barbiturates Screen Negative U Amphetamin/Meth Scrn Positive A U Benzodiazepines Scrn Negative U Cocaine Metab Screen Negative U Marijuana (THC) Screen Positive A Ethyl Alcohol < 3.0 12/20/24 03:42 WBC 6.8 RBC 5.19 Hgb 14.9 Hct 43.9 MCV 85 MCH 28.7 MCHC 33.9 RDW Std Deviation 46.4 H Plt Count 223 Neut % (Auto) 78 Lymph % (Auto) 17 Atkinson % (Auto) 3 Eos % (Auto) 1 Baso % (Auto) 1 Neut # (Auto) 5.3 Lymph # (Auto) 1.2 Atkinson # (Auto) 0.2 Eos # (Auto) 0.1 Baso # (Auto) 0.1 Immature Gran # (Auto) 0.03 H Absolute Nucleated RBC 0.00 Immature Gran % 0 Nucleated RBC % 0 PT INR APTT Puncture Site ABG pH ABG pCO2 ABG pO2 ABG HCO3 ABG O2 Saturation ABG Base Excess FiO2 Sodium 139 Potassium 3.8 Chloride 105 Carbon Dioxide 23.2 Anion Gap 11 BUN 18 Creatinine 1.2 Estim Creat Clear Calc 85.3 eGFR > 60 BUN/Creatinine Ratio 15 Glucose 164 H Calculated Osmolality 283 Calcium 9.1 Corrected Calcium 9.1 Magnesium 2.0 Total Bilirubin 1.5 H Direct Bilirubin AST 40 H ALT 40 Alkaline Phosphatase 78 Ammonia Total Creatine Kinase Troponin I B-Natriuretic Peptide Total Protein 6.8 Albumin 4.1 Globulin 2.7 Albumin/Globulin Ratio 1.5 Triglycerides 122 Cholesterol 158 LDL Cholesterol, Calc 82 HDL Cholesterol 52 Cholesterol/HDL Ratio 3.0 L TSH Free T4 Ur Collection Type Urine Color Urine Clarity Urine pH Ur Specific [place] Urine Protein Urine Glucose (UA) Urine Ketones Urine Blood Urine Nitrite Urine Bilirubin Urine Urobilinogen (Auto) Ur Leukocyte Esterase Urine RBC Urine WBC Ur Squamous Epith Cells Urine Bacteria Urine Opiates Screen Urine Fentanyl Screen Ur Barbiturates Screen U Amphetamin/Meth Scrn U Benzodiazepines Scrn U Cocaine Metab Screen U Marijuana (THC) Screen Ethyl Alcohol ABG Interpretation ABG results: 12/20/24 01:43 ABG pH 7.38 ABG pCO2 42 ABG pO2 54 L* ABG HCO3 25 ABG O2 Saturation 84 L ABG Base Excess -1 Quality Measures Quality Measures stroke Suspected type of Stroke: Acute Ischemic Tenecteplase given: within 60 min of arrival Rehab services: PT evaluation ordered and Speech Language Pathology eval ordered VTE Prophylaxis: mechanical and not indicated Antithrombotic by day 2:: ordered Statin ordered: <75 y/o high intensity dose Anticoagulation ordered for A-fib or flutter (current or hx): not indicated Assessment & Plan Assessment Current Active Medications: Generic Name Dose Route Start Last Admin Trade Name Freq PRN Reason Stop Dose Admin Acetaminophen 650 mg 12/20/24 03:37 Acetaminophen Supp 650 Mg Supp IA 01/19/25 03:36 Q6HR PRN PAIN OR FEVER > 101 Famotidine 20 mg 12/20/24 09:00 12/20/24 09:35 Famotidine Inj 10 Mg/Ml Vial 2 Ml IVP 01/19/25 08:59 20 mg Q12HR GIO Administration Furosemide 40 mg 12/21/24 09:00 Furosemide Inj 10 Mg/Ml 4ml Vial IVP 01/20/25 08:59 QDAY GIO Nicardipine/Sodium Chloride 20 mg in 200 mls @ 50 mls/hr 12/20/24 01:15 Cardene Ivpb IV 01/19/25 01:14 .Q4H PRN Per Nicardipine Stroke Protocol Protocol 5 MG/HR Potassium Chloride 10 meq in 100 mls @ 100 mls/hr 12/20/24 09:45 12/20/24 09:41 Kcl Ivpb IV 12/20/24 13:44 75 mls/hr Q1H GIO Administration Labetalol HCl 10 mg 12/20/24 01:15 Labetalol Inj 5 Mg/Ml Vial 20 Ml IVP PRNMRX1 PRN SBP > 185 mmHg and/or DBP > 110 Labetalol HCl 10 mg 12/20/24 01:15 Labetalol Inj 5 Mg/Ml Vial 20 Ml IVP PRNMRX1 PRN SBP > 180 mmHg or DBP > 105 Ondansetron HCl 4 mg 12/20/24 02:54 Ondansetron Inj 2 Mg/Ml Inj 2 Ml IVP 01/19/25 02:53 Q6H PRN NAUSEA OR VOMITING Protocol Plan A 44-year-old male patient with past medical history of CHF, polysubstance use disorder, presented to the ED with right sided weakness and agitation. Stroke alert was initiated patient was started on single dose of tenecteplase and was admitted to ICU for close neurological monitoring. [employer] WORK[employer] #Acute ischemic stroke Patient presented with dense right-sided weakness, NIHSS score was 29 on presentation. Including right-sided weakness, aphasia, dysarthria. CT scan was negative for hemorrhage or mass effect, CT angio was inconclusive due to contrast bolus timing error and patient motion. Patient was started on tenecteplase 25 mg x 1. Patient seems to be improving. Plan ? Repeat CT scan at 12 AM. Consider starting patient on aspirin for secondary prevention if repeat CT scan was negative for hemorrhagic conversion. ? Frequent neurochecks every hour to monitor any hemorrhagic conversion. Hold on DVT prophylaxis at this time. Will allow permissive hypertension, nicardipine if SBP more than 180/110. HOB 30 degree. ? Pending neurologist recommendations. #Acute encephalopathy At presentation patient was agitated, U-Tox screen was positive for THC and meth. Initial CT scan ruled out intracranial Hemorrhage. CVS #History of CHF Patient has history of CHF most likely secondary to meth abuse, unknown EF. Bedside ultrasound showed possible EF of 5 to 10%. Chest x-ray showed enlarged cardiac contour, vascular congestion. BNP was found to be more than 1900. EKG did not show ischemic changes. A troponin was within normal limits. Plan ? Echo with bubble study was ordered, cardiology consultation, based on the ejection fraction we will start the patient on GDMT as soon as the patient is clinically stable. ? Lasix 40 mg daily, fluid restriction, strict in and out, telemonitoring. #History of hypertension His reports that the patient has history of hypertension that was diagnosed in 2023. He is taking lisinopril unknown dose. Plan: Allow permissive hypertension, consider resuming antihypertensive medications when clinically applicable. Pulm #Acute hypoxic respiratory failure Most likely secondary pulmonary edema due to severe CHF, less likely to be pneumonia. Patient was requiring 3 L of oxygen on presentation. Plan ? Lasix 40 mg IV daily. Close monitoring. GI Elevated T bilirubin to 1.4, most likely secondary to vascular congestion. Plan: Daily monitoring, if continue to increase will consider liver ultrasound. Renal #TERRY Most likely prerenal secondary to vascular congestion versus methamphetamine abuse baseline serum creatinine 0.9, on admission his serum creatinine was 1.3. Patient is able to urinate Plan: Close BMP monitoring, avoid ACEI, NSAIDs Endocrine TSH was 8.1, however free T4 was normal. Plan: Will screen A1c for cardiovascular risk stratification. Heme-onc No abnormality detected ID Patient has SIRS response however no source of infection was found. Skin Patient noticed to have extensive tattoos, no obvious skin ulcers. Hospital Maintenance: FEN: N.p.o. pending speech eval DVT ppx: SCDs, chemical prophylaxis contraindicated at this time GI ppx: Protonix IV lines: PIV Ocasio: Yes Code status: Full code Dispo: Patient can be downgraded to telemetry after finishing 24 hours of close neurological monitoring and if CT scan of the brain repeat came back negative for any hemorrhage. - Patient's plan and care discussed with my attending, Dr. Melissa Aaron MD Internal Medicine PGY-3
[2024-12-20 11:19] LABS: Glucose Estimated Average 157 mg/dL (80-131); Hemoglobin A1C 7.1 % Hgb (4.8-6.0)
--- NOTE | 2024-12-20 15:33 | ESCONSULT_ITS ---
<Statement entered by Blair Neves MD - 12/22/24 00:15> I personally evaluated examined the patient with PGY 2 Dr. Smith patient has presented to the hospital neurologic symptoms and stroke has nonischemic cardiomyopathy dilated cardiomyopathy ejection fraction only 15% clinically not in heart failure evaluated patient with resident physician agree with the treatment plan recommendation as documented also discussed with the primary team condition is critical but stable at this point. There is no need for transesophageal echo since transthoracic echo showed no evidence of intracardiac shunts patient in sinus rhythm no cardiac thrombi seen in fact left ventricle is clearly seen no evidence of intracardiac thrombus and the picture quality is excellent.. HPI Data of Consult Requesting Physician: Manuel Vanegas MD Admitting Provider: Manuel Vanegas MD Attending Provider: Manuel Vanegas MD Primary Care Provider: Physician No Primary/Family Consult Narrative History of present illness: Mr. Chakraborty is a 44-year-old male with past medical history significant for HFrEF, hypertension, polysubstance use disorder including methamphetamine abuse and daily marijuana use presented to the ED on 12/19/2024 after noticed when he got out of bed to use the restroom at night significant drooping of his face which prompted him to really come to the ED. Upon arriving to the ED patient had progressively worsened with right-sided weakness and significant aphasia upon telemetry neuro examination patient's NIHSS score was 29 therefore decision was made since patient was within the window tenecteplase x 1 was administered. Patient's symptoms did improve soon after but continue to be extremely lethargic. Patient was admitted to the ICU for close monitoring after TNK administration for 24 hours. On admission patient was also found to be in acute decompensated congestive heart failure therefore cardiology was consulted. PMH: HFrEF, Primary Hypertension PSH: Unknown SH: Uses methamphetamine and marijuana daily, Drinks alcohol occasionally. Denies smoking tobacco. FH: Unknown. Allergies: NKA. Medications: Coreg, lisinopril and Lasix cc:: cc: Manuel Vanegas MD Review of Systems Review of Systems Systems Reviewed: All systems reviewed, normal except as documented Exam Vital Signs Temp Pulse Resp BP Pulse Ox O2 Del Method O2 Flow Rate 97.4 F 119 H 26 H 128/100 H 96 Nasal Cannula 1 12/20/24 12:00 12/20/24 15:15 12/20/24 15:15 12/20/24 15:15 12/20/24 15:15 12/20/24 13:00 12/20/24 13:00 Narrative Exam GENERAL: A&Ox3 . middle aged lethargic appearing male, Not in acute distress NEURO: no focal neurological deficits noted HEENT: Atraumatic, Normocephalic. mucous membranes moist. Eyes open, symmetrical, & clear HEART: Normal Heart Sounds LUNGS: Clear to auscultation with no wheezing or crackles. ABDOMEN: soft, non-distended, non-tender, bowel sounds heard, no guarding or rebound tenderness SKIN: No Rash or ecchymoses EXTREMITIES: No edema, tenderness, able to move all 4 extremities, pedal pulses palpated Results Labs 12/20/24 17:37 12/20/24 03:42 Labs: Short CBC 12/20/24 12/20/24 Range/Units 01:26 03:42 WBC 7.7 6.8 (3.8-10.6) Thou/mm3 Hgb 14.4 14.9 (13.5-16.0) g/dL Hct 44.2 43.9 (41.0-53.0) % Plt Count 246 223 (140-440) Thou/mm3 BMP 12/20/24 12/20/24 01:26 03:42 Sodium 139 139 Potassium 3.8 3.8 Chloride 104 105 Carbon Dioxide 24.8 23.2 BUN 18 18 Creatinine 1.3 1.2 Glucose 126 H 164 H Calcium 8.7 9.1 Cardiac Enzymes 12/20/24 Range/Units 01:26 Total Creatine Kinase 119 (34-171) U/L Troponin I 0.025 (0.0-0.045) ng/mL Liver Function 12/20/24 12/20/24 Range/Units 01:26 03:42 Total Bilirubin 1.4 H 1.5 H (0.3-1.2) mg/dL Direct Bilirubin 0.5 H (0.0-0.3) mg/dL AST 36 H 40 H (0-34) U/L ALT 36 40 (10-49) U/L Alkaline Phosphatase 73 78 (46-116) U/L Albumin 3.8 4.1 (3.5-5.0) gm/dL Urine 12/20/24 Range/Units 01:48 Urine Color Lt-Yellow (Lt Yel-Yel) Urine Clarity Clear (Clear/Hazy) Urine pH 6.5 (5.0-7.0) Ur Specific [place] 1.049 H (1.001-1.035) Urine Protein Trace (Neg - Trace) Urine Glucose (UA) Negative (Negative) ABG Interpretation ABG results: 12/20/24 01:43 ABG pH 7.38 ABG pCO2 42 ABG pO2 54 L* ABG HCO3 25 ABG O2 Saturation 84 L ABG Base Excess -1 Quality Measures Quality Measures stroke Suspected type of Stroke: Acute Ischemic Tenecteplase given: within 60 min of arrival Rehab services: PT evaluation ordered VTE Prophylaxis: pharmaceutical Antithrombotic by day 2:: not indicated (describe) Statin ordered: <75 y/o high intensity dose Anticoagulation ordered for A-fib or flutter (current or hx): not indicated Medications Home Medications and Allergies Home Medications ?Medication ?Instructions ?Recorded ?Confirmed ?Type buspirone 10 mg tablet 10 mg PO Q12HR 12/20/2401/07 History carvedilol 3.125 mg tablet 3.125 mg PO Q12H 12/20/24 0 12/20/24 History furosemide 20 mg tablet 20 mg PO QDAY 12/20/2412/20 History lisinopril 5 mg tablet 5 mg PO QDAY 12/20/24 History Allergies Allergy/AdvReac Type Severity Reaction Status Date / Time NKA* Allergy Uncoded 06/13/24 14:00 Visit Medications Acetaminophen (Acetaminophen Supp 650 Mg Supp) 650 mg UT Q6HR PRN PRN Reason: PAIN OR FEVER > 101 Stop: 01/19/25 03:36 Atorvastatin Calcium (Atorvastatin Calcium 20 Mg Tablet) 80 mg PO HS GIO Stop: 01/19/25 20:59 Dextrose (Dextrose 50%-Water Inj 50 Ml Syringe) 25 ml IV Q15MIN PRN PRN Reason: BG 50-70 responsive npo pt Stop: 01/19/25 13:24 Dextrose (Dextrose 50%-Water Inj 50 Ml Syringe) 50 ml IV Q15MIN PRN PRN Reason: BG <50 OR BG <70 & pt unresponsive Stop: 01/19/25 13:24 Famotidine (Famotidine Inj 10 Mg/Ml Vial 2 Ml) 20 mg IVP Q12HR [facility] Stop: 01/19/25 08:59 Last Admin: 12/20/24 09:35 Dose: 20 mg Furosemide (Furosemide Inj 10 Mg/Ml 4ml Vial) 40 mg IVP QDAY [facility] Stop: 01/20/25 08:59 Glucagon (Glucagon Inj 1 Mg Vial) 1 mg IM Q15MIN PRN PRN Reason: BG <70, and no IV access Nicardipine/Sodium Chloride (Cardene Ivpb) 20 mg in 200 mls @ 50 mls/hr IV .Q4H PRN; Protocol PRN Reason: Per Nicardipine Stroke Protocol Stop: 01/19/25 01:14 Insulin Human Lispro (Insulin Lispro (Admelog) 1 Unit/0.01 Ml Unit) 0 unit SC AC [facility]; Protocol Stop: 01/19/25 16:59 Labetalol HCl (Labetalol Inj 5 Mg/Ml Vial 20 Ml) 10 mg IVP PRNMRX1 PRN PRN Reason: SBP > 180 mmHg or DBP > 105 Ondansetron HCl (Ondansetron Inj 2 Mg/Ml Inj 2 Ml) 4 mg IVP Q6H PRN; Protocol PRN Reason: NAUSEA OR VOMITING Stop: 01/19/25 02:53 Discontinued Medications Furosemide (Furosemide Inj 10 Mg/Ml 4ml Vial) 40 mg IVP X1 ONE Stop: 12/20/24 03:05 Last Admin: 12/20/24 03:15 Dose: 40 mg Sodium Chloride (Ns) 1,000 mls @ 100 mls/hr IV Q10H [facility] Stop: 01/19/25 01:14 Sodium Chloride (Ns) 1,000 mls @ 999 mls/hr IV .Q1H1M ONE Stop: 12/20/24 02:04 Last Admin: 12/20/24 01:34 Dose: Not Given Potassium Chloride (Kcl Ivpb) 10 meq in 100 mls @ 100 mls/hr IV Q1H [facility] Stop: 12/20/24 13:44 Last Admin: 12/20/24 15:23 Dose: 75 mls/hr Lorazepam (Lorazepam 2 Mg/Ml Vial) 2 mg IVP X1 ONE Stop: 12/20/24 01:49 Last Admin: 12/20/24 02:58 Dose: Not Given Naloxone HCl (Naloxone Inj 0.4 Mg/Ml Vial) 1 mg IVP X1 ONE Stop: 12/20/24 01:05 Last Admin: 12/20/24 01:34 Dose: Not Given Ondansetron HCl (Ondansetron Inj 2 Mg/Ml Inj 2 Ml) 4 mg IVP Q4HR PRN PRN Reason: NAUSEA OR VOMITING Stop: 01/19/25 01:00 Pantoprazole Sodium (Pantoprazole Inj 40 Mg Vial) 40 mg IVP QDAY GIO Stop: 01/19/25 08:59 Tenecteplase (Tenecteplase Inj 50 Mg Vial) 20 mg IV X1 ONE Stop: 12/20/24 01:16 Last Admin: 12/20/24 01:26 Dose: 20 mg Assessment & Plan Plan Mr. Chakraborty is a 44-year-old male with past medical history significant for HFrEF, hypertension, polysubstance use disorder including methamphetamine abuse and daily marijuana use presented to the ED on 12/19/2024 for stroke work up. On admission patient was also found to be in acute decompensated congestive heart failure therefore cardiology was consulted. #Acute on Chronic decompensated congestive HF #HFrEF, EF 15-20% #Methamphetamine-associated cardiomyopathy -On initial presentation, pt was found to be in decompensated HF, Pt had severe shortness of breath, hypoxia and 2+ lower extremities edema. -Pt has a history of HFrEF, follows senior systems developer Dr. Toan Mitchell in [facility] -Pt has long history of daily methamphetamine abuse, on admission pt's urine tox is positive - Echo done on 12/20/24- Dilated cardiomyopathy markedly dilated left ventricle with severe global systolic dysfunction ejection fraction 15 to 20% Normal-sized right ventricle with mild dysfunction of the right ventricle. Moderate mitral regurgitation secondary to dilated mitral annulus. Mild to moderate tricuspid regurgitation normal PA pressure. -BNP 1991 -Troponin 0.025 -NYHA class ll -Chest XR reveals prominent vascular congestion and mild heart failure Plan ?Cotninue home lasix 40mg daily -Continue home coreg and lisinopril, Pt will need optimization of GDMT if BP allows. -Pt will need to follow up with his senior systems developer outpatient upon discharge -JOANIE is not recommended at this time due to clear echo findings, no evidence of mural thrombus and PFO, pt's stroke is less likely due to thromboembolic event -Fluid restriction to 2000ml -Strict I's and O's -Daily weights -Limit sodium intake to 2g daily #Primary Hypertension On admission BP was WNL and has remained with in normal limits -home meds include Lisinopril 5 mg daily, Carvedilol 3.125 mg BID -Hold home antihypertensives due to permissive hypertension -Pt is on labetalol and nicardipine drip PRN -Continue to monitor BP and resume home meds when able #Acute ischemic stroke MRI of brain: Acute infarcts left basal ganglia including left caudate nucleus, left parietal lobe NIHSS score was 29 on presentation TNK 25 mg x 1 administered -management as per primary and neurology team -Negative bubble study #Polysubstance abuse -recommend cessation counseling and referral to social welfare research worker Thank you for the consult and allowing us to participate in the care of the patient. Cardiology will continue to follow. Assessment and plan discussed with my attending physician Dr. Edinson Smith (PGY-2)- Internal medicine resident
--- NOTE | 2024-12-20 16:55 | PC.SS ---
Update: Patient on nasal cannula. Swallow evaluation conducted today. Patient is not receiving pressor support. Ocasio catheter in place. Cardiology and neurology are consulting. Possible downgrade tomorrow.
[2024-12-20 18:02] LABS: Basophils # (Auto) 0.1 Thou/mm3 (0.0-0.2); Basophils % (Auto) 1 % (0-2.5); Eosinophils # (Auto) 0.0 Thou/mm3 (0.0-0.5); Eosinophils % (Auto) 0 % (0-10); Hematocrit 51.1 % (41.0-53.0); Hemoglobin 16.9 g/dL (13.5-16.0); Immature Granulocytes Auto 0.02 Thou/mm3 (0.00-0.00); Lymphocytes # (Auto) 1.5 Thou/mm3 (1.0-4.8); Lymphocytes % (Auto) 13 % (10-50); Mean Corpuscular HGB Conc 33.1 g/dl (31.0-37.0); Mean Corpuscular Hemoglobin 28.7 pg (25.0-35.0); Mean Corpuscular Volume 87 fL (80-100); Monocytes # (Auto) 0.6 Thou/mm3 (0.0-0.8); Monocytes % (Auto) 5 % (0-12); Neutrophils # (Auto) 9.4 Thou/mm3 (1.8-7.7); Neutrophils % (Auto) 80 % (37-80); Nucleated Red Blood Cell # 0.00 Thou/mm3 (0.00-0.00); Nucleated Red Blood Cell % 0 /100 WBC (0); Platelet Count 294 Thou/mm3 (140-440); RDW Standard Deviation 48.3 fL (35.1-43.9); Red Blood Count 5.89 Miln/mm3 (4.50-5.90); White Blood Count 11.7 Thou/mm3 (3.8-10.6)
--- NOTE | 2024-12-20 18:53 | PD.RESCONSUL ---
HPI Data of Consult Requesting Physician: Manuel Vanegas MD Admitting Provider: Manuel Vanegas MD Attending Provider: Manuel Vanegas MD Primary Care Provider: Physician No Primary/Family Consult Narrative History of present illness: Mr. Jackson is a 44 years old male with PMH of HFrEF, HTN, polysubstance use disorder (THC, methamphetamines) who presented to the ED with right sided weakness, agitation. UDS + THC, methamphetamine. EtOH negative. LKAW 00:25 this AM. Given TNK with some improvement of symptoms. On arrival to the ED his blood pressure 178/100, pulse 111, respirations 24, oxygen saturation 95% on room air. Labs showed glucose 126, total bilirubin 1.4, BNP 1992, TSH 8.34. Urinalysis showed blood 1+, RBCs 5. U tox showed positive amphetamine and THC. ABG showed pH 7.38, PO2 54, PCO2 42. Head CT and CTA showed no LVO, hemorrhage or mass effect. Teleneuro was consulted and patient was given tenecteplase at 1:26 AM. Several minutes after TNK administration patient was able to move his right upper and lower extremity however continued to be uncooperative so full assessment was deferred. He was admitted to ICU for further management. Upon initial evaluation this morning, patient was lethargic with slurred speech. On repeat exam in the afternoon, patient's symptoms improved, though without complete resolution. cc:: cc: Manuel Vanegas MD Review of Systems Review of Systems Narrative Review of Systems: 14 point ROS negative other than HPI Exam Vital Signs Temp Pulse Resp BP Pulse Ox O2 Del Method O2 Flow Rate 97.9 F 127 H 31 H 128/96 H 93 L Nasal Cannula 1 12/20/24 16:00 12/20/24 17:12/20/24 17:00 12/20/24 17:00 12/20/24 17:12/20/24 16:12/20/24 16:00 Narrative Exam Exam completed in morning: Lethargic, AAOx1, slurred speech, inconsistently following commands. Exam limited. Exam completed in afternoon: General: No acute distress, well nourished HENT: Normocephalic, atraumatic, moist oral mucosa Neck: Supple, non-tender, no JVD, no lymphadenopathy Lungs: Non-labored respirations, symmetric chest rise Heart: Peripheral pulses intact bilaterally Abdomen: Soft, non-tender, non-distended Musculoskeletal: Normal range of motion and strength Skin: Skin is warm, dry, no rashes or lesions. Psychiatric: Cooperative, appropriate mood and affect Neurologic: Mental status: Orientation: AAOx2 Communication: Patient is cooperative and can follow simple instructions Language: Speech improved from prior exam - naming and repetition intact Cranial nerves: CN II: Visual fortune intact CN III: Pupils equal, round, and reactive to light CN III, IV, : No gaze deviation, no nystagmus Horizontal pursuit: intact Vertical pursuit: intact Ptosis: none CN V: Facial sensation to light touch intact bilaterally at the forehead, cheeks, and jaw line CN VII: Face symmetric, no facial droop appreciated CN VIII: Able to hear and respond to conversation at normal volume, intact to finger rub CN IX, X: Palate elevation symmetric, uvula midline CN XI: Head turn and shoulder shrug strong, symmetric bilaterally CN XII: Normal tongue protrusion without deviation, no fasciculations Motor: Normal bulk and tone No atrophy No abnormal movements or fasciculations Muscle strength: Shoulder abduction: R 5/5 L 5/5 Elbow flexion: R 5/5 L 5/5 Elbow extension: R 5/5 L 5/5 Hip flexion: R 5/5 L 5/5 Hip extension: R 5/5 L 5/5 Sensory: RUE: Light touch intact LUE: Light touch intact RLE: Light touch intact LLE: Light touch intact Reflexes: Biceps (C5-6): R 2+ L 2+ Brachioradialis (C5-6): R 2+ L 2+ Triceps (C7-8): R 2+ L 2+ Patellae (L3-4): R 2+ L 2+ No clonus Cerebellum: RUE: No dysmetria (finger to nose) LUE: No dysmetria (finger to nose) Romberg: deferred Gait: deferred Results Labs 12/21/24 05:51 12/21/24 05:51 Labs: Short CBC 12/20/24 12/20/24 12/20/24 Range/Units 01:26 03:42 17:37 WBC 7.7 6.8 11.7 H D (3.8-10.6) Thou/mm3 Hgb 14.4 14.9 16.9 H D (13.5-16.0) g/dL Hct 44.2 43.9 51.1 (41.0-53.0) % Plt Count 246 223 294 D (140-440) Thou/mm3 BMP 12/20/24 12/20/24 01:26 03:42 Sodium 139 139 Potassium 3.8 3.8 Chloride 104 105 Carbon Dioxide 24.8 23.2 BUN 18 18 Creatinine 1.3 1.2 Glucose 126 H 164 H Calcium 8.7 9.1 Cardiac Enzymes 12/20/24 Range/Units 01:26 Total Creatine Kinase 119 (34-171) U/L Troponin I 0.025 (0.0-0.045) ng/mL Liver Function 12/20/24 12/20/24 Range/Units 01:26 03:42 Total Bilirubin 1.4 H 1.5 H (0.3-1.2) mg/dL Direct Bilirubin 0.5 H (0.0-0.3) mg/dL AST 36 H 40 H (0-34) U/L ALT 36 40 (10-49) U/L Alkaline Phosphatase 73 78 (46-116) U/L Albumin 3.8 4.1 (3.5-5.0) gm/dL Urine 12/20/24 Range/Units 01:48 Urine Color Lt-Yellow (Lt Yel-Yel) Urine Clarity Clear (Clear/Hazy) Urine pH 6.5 (5.0-7.0) Ur Specific [place] 1.049 H (1.001-1.035) Urine Protein Trace (Neg - Trace) Urine Glucose (UA) Negative (Negative) ABG Interpretation ABG results: 12/20/24 01:43 ABG pH 7.38 ABG pCO2 42 ABG pO2 54 L* ABG HCO3 25 ABG O2 Saturation 84 L ABG Base Excess -1 Quality Measures Quality Measures stroke Suspected type of Stroke: Acute Ischemic Tenecteplase given: within 60 min of arrival Rehab services: Speech Language Pathology eval ordered VTE Prophylaxis: pharmaceutical and mechanical Antithrombotic by day 2:: ordered Statin ordered: <75 y/o high intensity dose Anticoagulation ordered for A-fib or flutter (current or hx): not indicated Medications Home Medications and Allergies Home Medications ?Medication ?Instructions ?Recorded ?Confirmed ?Type buspirone 10 mg tablet 10 mg PO Q12HR 12/20/24 12/20/24 History carvedilol 3.125 mg tablet 3.125 mg PO Q12H 12/20/24 12/20/24 History furosemide 20 mg tablet 20 mg PO QDAY 12/20/24 12/20/24 History lisinopril 5 mg tablet 5 mg PO QDAY 12/20/24 12/20/24 History Allergies Allergy/AdvReac Type Severity Reaction Status Date / Time No Known Allergies Allergy Unverified 12/21/24 08:24 Visit Medications Acetaminophen (Acetaminophen Supp 650 Mg Supp) 650 mg DC Q6HR PRN PRN Reason: PAIN OR FEVER > 101 Stop: 01/19/25 03:36 Atorvastatin Calcium (Atorvastatin Calcium 20 Mg Tablet) 80 mg PO HS [facility] Stop: 01/19/25 20:59 Dextrose (Dextrose 50%-Water Inj 50 Ml Syringe) 25 ml IV Q15MIN PRN PRN Reason: BG 50-70 responsive npo pt Stop: 01/19/25 13:24 Dextrose (Dextrose 50%-Water Inj 50 Ml Syringe) 50 ml IV Q15MIN PRN PRN Reason: BG <50 OR BG <70 & pt unresponsive Stop: 01/19/25 13:24 Famotidine (Famotidine Inj 10 Mg/Ml Vial 2 Ml) 20 mg IVP Q12HR [facility] Stop: 01/19/25 08:59 Last Admin: 12/20/24 09:35 Dose: 20 mg Furosemide (Furosemide Inj 10 Mg/Ml 4ml Vial) 40 mg IVP QDAY GIO Stop: 01/20/25 08:59 Glucagon (Glucagon Inj 1 Mg Vial) 1 mg IM Q15MIN PRN PRN Reason: BG <70, and no IV access Nicardipine/Sodium Chloride (Cardene Ivpb) 20 mg in 200 mls @ 50 mls/hr IV .Q4H PRN; Protocol PRN Reason: Per Nicardipine Stroke Protocol Stop: 01/19/25 01:14 Insulin Human Lispro (Insulin Lispro (Admelog) 1 Unit/0.01 Ml Unit) 0 unit SC AC GIO; Protocol Stop: 01/19/25 16:59 Last Admin: 12/20/24 17:08 Dose: Not Given Labetalol HCl (Labetalol Inj 5 Mg/Ml Vial 20 Ml) 10 mg IVP PRNMRX1 PRN PRN Reason: SBP > 180 mmHg or DBP > 105 Ondansetron HCl (Ondansetron Inj 2 Mg/Ml Inj 2 Ml) 4 mg IVP Q6H PRN; Protocol PRN Reason: NAUSEA OR VOMITING Stop: 01/19/25 02:53 Discontinued Medications Furosemide (Furosemide Inj 10 Mg/Ml 4ml Vial) 40 mg IVP X1 ONE Stop: 12/20/24 03:05 Last Admin: 12/20/24 03:15 Dose: 40 mg Sodium Chloride (Ns) 1,000 mls @ 100 mls/hr IV Q10H [facility] Stop: 01/19/25 01:14 Sodium Chloride (Ns) 1,000 mls @ 999 mls/hr IV .Q1H1M ONE Stop: 12/20/24 02:04 Last Admin: 12/20/24 01:34 Dose: Not Given Potassium Chloride (Kcl Ivpb) 10 meq in 100 mls @ 100 mls/hr IV Q1H [facility] Stop: 12/20/24 13:44 Last Admin: 12/20/24 15:23 Dose: 75 mls/hr Lorazepam (Lorazepam 2 Mg/Ml Vial) 2 mg IVP X1 ONE Stop: 12/20/24 01:49 Last Admin: 12/20/24 02:58 Dose: Not Given Naloxone HCl (Naloxone Inj 0.4 Mg/Ml Vial) 1 mg IVP X1 ONE Stop: 12/20/24 01:05 Last Admin: 12/20/24 01:34 Dose: Not Given Ondansetron HCl (Ondansetron Inj 2 Mg/Ml Inj 2 Ml) 4 mg IVP Q4HR PRN PRN Reason: NAUSEA OR VOMITING Stop: 01/19/25 01:00 Pantoprazole Sodium (Pantoprazole Inj 40 Mg Vial) 40 mg IVP QDAY [facility] Stop: 01/19/25 08:59 Tenecteplase (Tenecteplase Inj 50 Mg Vial) 20 mg IV X1 ONE Stop: 12/20/24 01:16 Last Admin: 12/20/24 01:26 Dose: 20 mg Assessment & Plan Assessment #Acute ischemic stroke Initial symptoms: right-sided weakness, aphasia, dysarthria. NIHSS score was 29 on presentation TNK 25 mg x 1 administered with gradual improvement of symptoms Plan - CT head negative for acute hemorrhage, mass effect, midline shift - CTA negative for LVO, limited 2/2 contrast bolus timing - MR stroke: Acute infarcts left basal ganglia including left caudate nucleus, left parietal lobe - Pending echo with bubble study - Start ASA 81 mg daily #Acute encephalopathy, improving UDS positive for THC and meth Patient initially agitated, then lethargic. Now able to follow commands and stay awake during interview Plan: - Continue to monitor #HFrEF - TTE LVEF 15-20%, negative for PFO - Most likely 2/2 methamphetamine use - BNP 1991 - Troponin WNL Plan ? Management per primary team, cardiology #History of hypertension Dx May 2024. Home meds: Lisinopril 5 mg daily, Carvedilol 3.125 mg BID Plan: - Management per primary team - Allow permissive hypertension, consider resuming antihypertensive medications when clinically applicable. - PRN labetalol and nicardipine #Acute hypoxic respiratory failure, improving Most likely 2/2 pulmonary edema due to severe CHF, less likely to be pneumonia. Patient was requiring 3 L of oxygen on presentation. Now saturating appropriately on 1L NC. Plan - Management per primary team ? Lasix 40 mg IV daily #Polysubstance use disorder UDS + methamphetamine, THC Plan: - F/U outpatient addiction medicine Plan discussed with Dr. Emmie Adams, PGY1 Attending Provider Attestation/Addendum I personally have seen and examined the patient at the bedside and agreed with resident's findings, assessment and plan of care. 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 Follow-up with echocardiogram report. Continue with aspirin, Plavix and statin will order hypercoagulopathy workup as well. He would need to be introduced to resources for drug rehab upon discharge
[2024-12-20] MEDS: ATORVASTATIN CALCIUM 20 MG TABLET 80 MG PO (20:29)
[2024-12-21] VITALS (26 sets, daily range): BP systolic 107–129; BP diastolic 86–104; PULSE 60–132; RESP 3–98; TEMP 36–36.6; O2SAT 90–100; BMI 22.0
--- NOTE | 2024-12-21 02:00 | XR_ITS ---
Examination: CT brain head without contrast. 2-D sagittal coronal reconstructions Date and time of exam:December 21, 2024, 0419 hours Comparison December 20, 2024 INDICATION: Stroke alert December 20, 2024, status post anticoagulation therapy 24 hours CTDI: vol (mGy):52.6 DLP: (mGycm):1048 Technique: Multiple CT axial sections of the brain have been obtained, 5 mm slice thickness. Contrast has not been administered. 2-D sagittal, coronal reconstructions have been obtained Low dose protocols were performed. One or more of the following dose reduction techniques were used; automated exposure control, adjustment of the mA and/or KV according to patient size, use of iterative reconstruction technique. Findings: No significant ventricular enlargement. Intra-axial or extra-axial hemorrhage density is not seen. No mass effect or midline shift Basal cisterns are not remarkable. Fourth ventricle is midline. Cranial vault intact. Impression: No interval acute hemorrhage, mass effect or midline shift
--- NOTE | 2024-12-21 05:05 | PRELIM_ITS ---
CT scan of the head without intravenous contrast (axial sections with sagittal and coronal reformats) December 21, 2024 0419 hours Clinical History: Status post TNK, 24 hours Radiation Dose: Total exam DLP 1051 mGy/cm Comparison: No prior study is available for comparison. Findings: There is no evidence of intracranial hemorrhage, mass effect or midline shift. There is mild volume loss. The calvarium is unremarkable. The mastoid air cells and the visualized paranasal sinuses are clear. There is a small soft tissue hematoma in the left parietal scalp. Impression: No evidence of intracranial hemorrhage, mass effect or midline shift. Other findings as described above. Report Electronically Signed By: Solis Galicia 12/21/2024 5:05:18 AM [EST]
--- NOTE | 2024-12-21 05:57 | PC.NURSE ---
RECEIVED PT TO RM 260 FROM ICU ON BED. PT AAO X4. PT DENIES PAIN, NO ACUTE DISTRESS. PT ORIENTED TO RM ,USE OF CALL LIGHT AND PT VERBALIZED UNDERSTANDING. PT STATED HE HAS EYEGLASSES, RN AND STAFF UNABLE TO LOCATE IT FROM ICU ROOM. RN CALLED PT'S ANA LUISA FOR EYEGLASSES AND RM TRANSFERE BUT NO ANSWER,LEFT MESSAGE TO CALL BACK.
[2024-12-21 06:35] LABS: Basophils # (Auto) 0.1 Thou/mm3 (0.0-0.2); Basophils % (Auto) 1 % (0-2.5); Eosinophils # (Auto) 0.1 Thou/mm3 (0.0-0.5); Eosinophils % (Auto) 1 % (0-10); Hematocrit 49.7 % (41.0-53.0); Hemoglobin 16.6 g/dL (13.5-16.0); Immature Granulocytes Auto 0.03 Thou/mm3 (0.00-0.00); Lymphocytes # (Auto) 2.3 Thou/mm3 (1.0-4.8); Lymphocytes % (Auto) 20 % (10-50); Mean Corpuscular HGB Conc 33.4 g/dl (31.0-37.0); Mean Corpuscular Hemoglobin 28.9 pg (25.0-35.0); Mean Corpuscular Volume 87 fL (80-100); Monocytes # (Auto) 0.7 Thou/mm3 (0.0-0.8); Monocytes % (Auto) 6 % (0-12); Neutrophils # (Auto) 8.2 Thou/mm3 (1.8-7.7); Neutrophils % (Auto) 72 % (37-80); Nucleated Red Blood Cell # 0.00 Thou/mm3 (0.00-0.00); Nucleated Red Blood Cell % 0 /100 WBC (0); Platelet Count 263 Thou/mm3 (140-440); RDW Standard Deviation 48.1 fL (35.1-43.9); Red Blood Count 5.74 Miln/mm3 (4.50-5.90); White Blood Count 11.5 Thou/mm3 (3.8-10.6)
[2024-12-21 07:10] LABS: Alanine Aminotransferase 33 U/L (10-49); Albumin, Serum 3.8 gm/dL (3.5-5.0); Albumin/Globulin Ratio 1.5 (1.2-2.2); Alkaline Phosphatase 73 U/L (46-116); Anion Gap 10 (7-16); Aspartate Amino Transferase 32 U/L (0-34); BUN/Creatinine Ratio 13 Ratio (12-20); Bilirubin,Total 3.6 mg/dL (0.3-1.2); Blood Urea Nitrogen 16 mg/dL (9-23); Calcium 9.1 mg/dL (8.3-10.6); Calcium (Corrected) 9.3 mg/dL (8.5-10.1); Carbon Dioxide 23.8 mMol/L (20.0-31.0); Chloride 104 mMol/L (98-107); Creatinine (Component) 1.2 mg/dL (0.6-1.3); Estimated Creatinine Clearance 81.1 mL/min (>60); Globulin 2.6 gm/dL (2.3-3.5); Glucose 122 mg/dL (74-106); Magnesium 1.8 mg/dL (1.6-2.6); Osmolality,Calculated 277 (275-295); Phosphorous 3.3 mg/dL (2.4-5.1); Potassium 5.0 mMol/L (3.4-5.1); Sodium 138 mMol/L (136-145); Total Protein 6.4 gm/dL (5.7-8.2); eGFR > 60 See Note
--- NOTE | 2024-12-21 08:16 | ESPR_ITS ---
Documentation for date of: 12/21/24 Subjective Subjective Interval history: Patient seen at bedside. Patient reports no complaints at this time. Open to receiving resources for posysubstance use cessation. Exam Vital Signs Temp Pulse Resp BP Pulse Ox O2 Del Method O2 Flow Rate 97.2 F 118 H 46 H 107/86 H 98 Nasal Cannula 1 12/21/24 04:00 12/21/24 06:35 12/21/24 06:35 12/21/24 05:00 12/21/24 06:35 12/20/24 16:00 12/20/24 21:56 Narrative Exam General: No acute distress, well nourished Eye: PERRL, EOMI, normal conjunctiva, no scleral icterus HENT: Normocephalic, atraumatic, hearing intact to conversation at normal volume, moist oral mucosa Neck: Supple, non-tender, no JVD, no lymphadenopathy Lungs: Non-labored respirations, symmetric chest rise Heart: Peripheral pulses intact bilaterally Abdomen: Soft, non-tender, non-distended Musculoskeletal: Normal range of motion and strength Skin: Skin is warm, dry, no rashes or lesions. Psychiatric: Cooperative, appropriate mood and affect Neurologic: Mental status: Orientation: Oriented to person, place, time, and situation Communication: Patient is cooperative and can follow simple instructions Language: Speech vastly improved from initial exam, repetition intact, naming intact, normal rate and volume, comprehension intact Cranial nerves: CN II: Visual fortune intact CN III: Pupils equal, round, and reactive to light CN III, IV, : No gaze deviation, no nystagmus Horizontal pursuit: intact Vertical pursuit: intact Ptosis: none CN V: Facial sensation to light touch intact bilaterally at the forehead, cheeks, and jaw line CN VII: Face symmetric, no facial droop appreciated CN VIII: Able to hear and respond to conversation at normal volume, intact to finger rub CN IX, X: Palate elevation symmetric, uvula midline CN XI: Head turn and shoulder shrug strong, symmetric bilaterally CN XII: Normal tongue protrusion without deviation, no fasciculations Motor: Normal bulk and tone No atrophy No abnormal movements or fasciculations Muscle strength: Shoulder abduction: R 5/5 L 5/5 Elbow flexion: R 5/5 L 5/5 Elbow extension: R 5/5 L 5/5 Hip flexion: R 5/5 L 5/5 Hip extension: R 5/5 L 5/5 Knee flexion: R 5/5 L 5/5 Knee extension: R 5/5 L 5/5 Sensory: RUE: Light touch intact LUE: Light touch intact RLE: Light touch intact LLE: Light touch intact Reflexes: Biceps (C5-6): R 2+ L 2+ Brachioradialis (C5-6): R 2+ L 2+ Triceps (C7-8): R 2+ L 2+ Patellae (L3-4): R 2+ L 2+ Achilles (S1-2):R 2+ L 2+ No clonus Cerebellum: RUE: No dysmetria (finger to nose), no dysdiadochokinesia (rapid alternating movements) LUE: No dysmetria (finger to nose), no dysdiadochokinesia (rapid alternating movements) Objective Labs 12/21/24 05:51 12/21/24 05:51 Labs: Laboratory Results - last 24 hr 12/20/24 12/20/24 12/21/24 03:42 17:37 05:51 WBC 11.7 H D 11.5 H RBC 5.89 5.74 Hgb 16.9 H D 16.6 H Hct 51.1 49.7 MCV 87 87 MCH 28.7 28.9 MCHC 33.1 33.4 RDW Std Deviation 48.3 H 48.1 H Plt Count 294 D 263 D Neut % (Auto) 80 72 Lymph % (Auto) 13 20 [place] % (Auto) 5 6 Eos % (Auto) 0 1 Baso % (Auto) 1 1 Neut # (Auto) 9.4 H 8.2 H Lymph # (Auto) 1.5 2.3 [place] # (Auto) 0.6 0.7 Eos # (Auto) 0.0 0.1 Baso # (Auto) 0.1 0.1 Immature Gran # (Auto) 0.02 H 0.03 H Absolute Nucleated RBC 0.00 0.00 Immature Gran % 0 0 Nucleated RBC % 0 0 Sodium 138 Potassium 5.0 D Chloride 104 Carbon Dioxide 23.8 Anion Gap 10 BUN 16 Creatinine 1.2 Estim Creat Clear Calc 81.1 eGFR > 60 BUN/Creatinine Ratio [address] Glu mg/dL 157 H Hemoglobin A1c 7.1 H Calculated Osmolality 277 Calcium 9.1 Corrected Calcium 9.3 Phosphorus 3.3 Magnesium 1.8 Total Bilirubin 3.6 H D AST 32 ALT 33 Alkaline Phosphatase 73 Total Protein 6.4 Albumin 3.8 Globulin 2.6 Albumin/Globulin Ratio 1.5 ABG Interpretation ABG results: 12/20/24 01:43 ABG pH 7.38 ABG pCO2 42 ABG pO2 54 L* ABG HCO3 25 ABG O2 Saturation 84 L ABG Base Excess -1 Quality Measures Quality Measures stroke Suspected type of Stroke: Acute Ischemic Tenecteplase given: within 60 min of arrival Rehab services: PT evaluation ordered VTE Prophylaxis: not indicated Antithrombotic by day 2:: not indicated (describe) Statin ordered: <75 y/o high intensity dose Anticoagulation ordered for A-fib or flutter (current or hx): not indicated Assessment & Plan Assessment Current Active Medications: Generic Name Dose Route Start Last Admin Trade Name Freq PRN Reason Stop Dose Admin Acetaminophen 650 mg 12/20/24 03:37 Acetaminophen Supp 650 Mg Supp RI 01/19/25 03:36 Q6HR PRN PAIN OR FEVER > 101 Atorvastatin Calcium 80 mg 12/20/24 21:00 12/20/24 20:29 Atorvastatin Calcium 20 Mg Tablet PO 01/19/25 20:59 80 mg HS GIO Administration Dextrose 25 ml 12/20/24 13:25 Dextrose 50%-Water Inj 50 Ml Syringe IV 01/19/25 13:24 Q15MIN PRN BG 50-70 responsive npo pt Dextrose 50 ml 12/20/24 13:25 Dextrose 50%-Water Inj 50 Ml Syringe IV 01/19/25 13:24 Q15MIN PRN BG <50 OR BG <70 & pt unresponsive Famotidine 20 mg 12/20/24 09:00 12/20/24 20:30 Famotidine Inj 10 Mg/Ml Vial 2 Ml IVP 01/19/25 08:59 20 mg Q12HR GIO Administration Furosemide 40 mg 12/21/24 09:00 Furosemide Inj 10 Mg/Ml 4ml Vial IVP 01/20/25 08:59 QDAY GIO Glucagon 1 mg 12/20/24 13:25 Glucagon Inj 1 Mg Vial IM Q15MIN PRN BG <70, and no IV access Nicardipine/Sodium Chloride 20 mg in 200 mls @ 50 mls/hr 12/20/24 01:15 Cardene Ivpb IV 01/19/25 01:14 .Q4H PRN Per Nicardipine Stroke Protocol Protocol 5 MG/HR Insulin Human Lispro 0 unit 12/20/24 17:00 12/21/24 07:17 Insulin Lispro (Admelog) 1 Unit/0.01 Ml Unit SC 01/19/25 16:59 Not Given AC GIO Protocol Labetalol HCl 10 mg 12/20/24 01:15 Labetalol Inj 5 Mg/Ml Vial 20 Ml IVP PRNMRX1 PRN SBP > 180 mmHg or DBP > 105 Ondansetron HCl 4 mg 12/20/24 02:54 Ondansetron Inj 2 Mg/Ml Inj 2 Ml IVP 01/19/25 02:53 Q6H PRN NAUSEA OR VOMITING Protocol Plan #Acute ischemic stroke Initial symptoms: right-sided weakness, aphasia, dysarthria. NIHSS score was 29 on presentation TNK 25 mg x 1 administered with gradual improvement of symptoms - CT head negative for acute hemorrhage, mass effect, midline shift - CTA negative for LVO, limited 2/2 contrast bolus timing - MR stroke: Acute infarcts left basal ganglia including left caudate nucleus, left parietal lobe - TTE: Negative for PFO. No cardiac thrombus. LVEF 15-20%. Dilated cardiomyopathy markedly dilated left ventricle with severe global systolic dysfunction. Normal-sized right ventricle with mild dysfunction of the right ventricle. Moderate mitral regurgitation secondary to dilated mitral annulus. Mild to moderate tricuspid regurgitation normal PA pressure. Plan: - ASA 81 mg daily and Plavix 75 mg daily - DVT prophylaxis with TEDs and SCDs #Acute encephalopathy, improving UDS positive for THC and meth Patient initially agitated, then lethargic. Now able to follow commands and stay awake during interview Plan: - Continue to monitor #HFrEF 15-20% #Dilated cardiomyopathy TTE: Negative for PFO. No cardiac thrombus. LVEF 15-20%. Dilated cardiomyopathy markedly dilated left ventricle with severe global systolic dysfunction. Normal-sized right ventricle with mild dysfunction of the right ventricle. Moderate mitral regurgitation secondary to dilated mitral annulus. Mild to moderate tricuspid regurgitation normal PA pressure. Most likely 2/2 methamphetamine use BNP 1991 Troponin WNL JOANIE not needed, per cardiology Plan ? Management per primary team, cardiology #History of hypertension Dx May 2024. Home meds: Lisinopril 5 mg daily, Carvedilol 3.125 mg BID Plan: - Management per primary team - Allow permissive hypertension, consider resuming antihypertensive medications when clinically applicable. - PRN labetalol and nicardipine #Acute hypoxic respiratory failure, improving Most likely 2/2 pulmonary edema due to severe CHF, less likely to be pneumonia. Patient was requiring 3 L of oxygen on presentation. Now saturating appropriately on 1L [place]. Plan - Management per primary team ? Lasix 40 mg IV daily #Polysubstance use disorder UDS + methamphetamine, THC Plan: - F/U with director social welfare for drug addiction resources Plan discussed with Dr. Emmie Adams, PGY1 Attending Provider Attestation/Addendum I personally have seen and examined the patient at the bedside and agreed with resident's findings, assessment and plan of care. Patient does not have any focal neurological deficit. Ambulated with the physical therapist. MRI brain showed Acute infarcts left basal ganglia including left caudate nucleus, left parietal lobe - TTE: Negative for PFO. No cardiac thrombus. LVEF 15-20%. Dilated cardiomyopathy markedly dilated left ventricle with severe global systolic dysfunction. Normal-sized right ventricle with mild dysfunction of the right ventricle. Moderate mitral regurgitation secondary to dilated mitral annulus. Mild to moderate tricuspid regurgitation normal PA pressure. No need for transesophageal echocardiogram. Will go ahead and order hypercoagulopathy workup to rule out secondary causes. 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 Advised him about the importance of drug cessation, director social welfare will provide him with resources upon discharge. Patient will continue with aspirin and Plavix for 21 days followed by Plavix and statin.
--- NOTE | 2024-12-21 09:04 | XR_ITS ---
Examination: Abdomen sonogram, complete Date and time of exam: December 21, 2024 1317 hours INDICATIONS: Elevated total bilirubin on laboratory examination today. Technique: Multiple real-time grayscale transabdominal sonographic images of the abdomen have been obtained. Findings: Contracted gallbladder, no stones Common bile duct 0.2 cm Pancreatic head 1.9 cm Aorta not enlarged Liver 14.9 cm multiple small benign liver cyst fatty infiltration Normal hepatopedal portal venous flow Patent IVC Right kidney 11.5 cm cortex 1.6 cm Mild right hydronephrosis Left kidney 11.2 cm cortex 2.0 cm Spleen 10.2 cm IMPRESSION: Recommend repeating the gallbladder portion of this study with fasting Benign small liver cysts
[2024-12-21] MEDS: FAMOTIDINE INJ 10 MG/ML VIAL 2 ML 20 MG IVP ×2 (09:20→20:41)
[2024-12-21] MEDS: FUROSEMIDE INJ 10 MG/ML 4ML VIAL 40 MG IVP (09:20)
[2024-12-21] MEDS: Magnesium Sulfate 4 GM Ivpb 4 GM/50 ML BAG IV (09:21)
[2024-12-21 11:02] LABS: Hepatitis A Antibody IgM Non Reactive (Non React); Hepatitis B Core Antibody IgM Non Reactive (Non React); Hepatitis B Surface Antigen Non Reactive (Non React); Hepatitis C Antibody Non Reactive (Non React)
--- NOTE | 2024-12-21 11:19 | PC.NURSE ---
Site Acquisition Manager: Dr Bates notified that patient is refusing his SCD's. Will consult Neuro then will order a pharmaceutical replacement.
[2024-12-21] MEDS: ASPIRIN EC 81 MG TABEC PO (12:15)
--- NOTE | 2024-12-21 13:22 | ESPR_ITS ---
<Statement entered by Reji Santacruz MD - 12/21/24 15:59> I have reviewed the note and agree with the resident's assessment & plan with exceptions as below. I have personally reviewed labs, imaging, home meds/prior records, examined the patient, formulated and discussed management plan with the IM team. Patient examined at bedside today, day 1 downgraded from ICU. He is status post TNK, head CT negative for acute hemorrhage. Pending further neurology recs, however they are okay with starting aspirin and Plavix at this time. Will also continue with mechanical VTE. Neurology is recommending JOANIE however will need to discuss with cardiology if this is indicated as TTE did not show any LA thrombus at the time. Patient may get JOANIE, and will need to consult additional cash[employer] for this. Will continue with further cardiology and neurology recommendations. Echo shows severe wall motion abnormalities, EF of 15 to 20% and dilated cardiomyopathy. T. bili 3.6, will continue to trend. Will continue with high intensity statin. Continue with physical therapy and speech therapy recommendations. Repeat hematology and chemistry in the a.m. Reji Santacruz, PGY-2 Internal Medicine Documentation for date of: 12/21/24 Subjective Subjective Interval history: Impression: 44 yo male with pmh of CHF, methamphetamine use, and THC use disorder who was admitted to the ICU after TNK administration per stroke protocol. He was also found to have acute encephalopathy, acute on chronic decompensated congestive HF, elevated T Bili, TERRY, and subclinical hypothyroidism. Today he was downgraded from the ICU and reports to be feeling better, with completely resolved right sided motor symptoms, and resolved anarthria. He denies chest pain, fevers, and chills but reports intermittent SOB at rest. Overnight events: Patient was downgraded from the ICU overnight. Exam Vital Signs Temp Pulse Resp BP Pulse Ox O2 Del Method O2 Flow Rate 96.8 F 60 20 125/97 H 99 Nasal Cannula 2 12/21/24 12:00 12/21/24 12:15 12/21/24 12:00 12/21/24 12:15 12/21/24 12:00 12/21/24 12:12/21/24 12:00 Narrative Exam General: Patient is A&O x3, not in any acute distress, seems mildly anxious HEENT: normocephalic, atraumatic, PERRL, EOM intact Cardio: Normal S1,S2, I was not able to appreciate any murmurs/rubs/gallops Pulm:Lungs clear to auscultation bilaterally Abdominal:bowel sounds present, abdomen is soft, nontender with no rigidity or guarding MSK: 5/5 strength in upper and lower extremity, full ROM Neuro: CN 2-12 grossly intact, 5/5 strength and intact sensation in bilateral upper and lower extremity, speech is fluent with appropriate rate and articulation Objective Labs 12/21/24 05:51 12/21/24 05:51 Labs: Laboratory Results - last 24 hr 12/20/24 12/21/24 12/21/24 17:37 05:00 05:51 WBC 11.7 H D 11.5 H RBC 5.89 5.74 Hgb 16.9 H D 16.6 H Hct 51.1 49.7 MCV 87 87 MCH 28.7 28.9 MCHC 33.1 33.4 RDW Std Deviation 48.3 H 48.1 H Plt Count 294 D 263 D Neut % (Auto) 80 72 Lymph % (Auto) 13 20 [place] % (Auto) 5 6 Eos % (Auto) 0 1 Baso % (Auto) 1 1 Neut # (Auto) 9.4 H 8.2 H Lymph # (Auto) 1.5 2.3 [place] # (Auto) 0.6 0.7 Eos # (Auto) 0.0 0.1 Baso # (Auto) 0.1 0.1 Immature Gran # (Auto) 0.02 H 0.03 H Absolute Nucleated RBC 0.00 0.00 Immature Gran % 0 0 Nucleated RBC % 0 0 Sodium 138 Potassium 5.0 D Chloride 104 Carbon Dioxide 23.8 Anion Gap 10 BUN 16 Creatinine 1.2 Estim Creat Clear Calc 81.1 eGFR > 60 BUN/Creatinine Ratio 13 Glucose 122 H Calculated Osmolality 277 Calcium 9.1 Corrected Calcium 9.3 Phosphorus 3.3 Magnesium 1.8 Total Bilirubin 3.6 H D AST 32 ALT 33 Alkaline Phosphatase 73 Total Protein 6.4 Albumin 3.8 Globulin 2.6 Albumin/Globulin Ratio 1.5 Hepatitis A IgM Ab Non Reactive Hep Bs Antigen Non Reactive Hep B Core IgM Ab Non Reactive Hepatitis C Antibody Non Reactive ABG Interpretation ABG results: 12/20/24 01:43 ABG pH 7.38 ABG pCO2 42 ABG pO2 54 L* ABG HCO3 25 ABG O2 Saturation 84 L ABG Base Excess -1 Quality Measures Quality Measures stroke Suspected type of Stroke: Acute Ischemic Tenecteplase given: within 60 min of arrival Rehab services: PT evaluation ordered and Speech Language Pathology eval ordered VTE Prophylaxis: mechanical Antithrombotic by day 2:: ordered (TPA) Statin ordered: >75 y/o moderate or high intensity dose Anticoagulation ordered for A-fib or flutter (current or hx): not indicated Assessment & Plan Assessment Current Active Medications: Generic Name Dose Route Start Last Admin Trade Name Freq PRN Reason Stop Dose Admin Acetaminophen 650 mg 12/20/24 03:37 Acetaminophen Supp 650 Mg Supp MN 01/19/25 03:36 Q6HR PRN PAIN OR FEVER > 101 Aspirin 81 mg 12/21/24 10:00 12/21/24 12:15 Aspirin Ec 81 Mg Tabec PO 01/20/25 09:59 81 mg QDAY GIO Administration Atorvastatin Calcium 80 mg 12/20/24 21:00 12/20/24 20:29 Atorvastatin Calcium 20 Mg Tablet PO 01/19/25 20:59 80 mg HS GIO Administration Carvedilol 3.125 mg 12/21/24 10:45 12/21/24 12:14 Carvedilol 3.125 Mg Tablet PO 01/20/25 10:44 3.125 mg Q12HR GIO Administration Dextrose 25 ml 12/20/24 13:25 Dextrose 50%-Water Inj 50 Ml Syringe IV 01/19/25 13:24 Q15MIN PRN BG 50-70 responsive npo pt Dextrose 50 ml 12/20/24 13:25 Dextrose 50%-Water Inj 50 Ml Syringe IV 01/19/25 13:24 Q15MIN PRN BG <50 OR BG <70 & pt unresponsive Famotidine 20 mg 12/20/24 09:00 12/21/24 09:20 Famotidine Inj 10 Mg/Ml Vial 2 Ml IVP 01/19/25 08:59 20 mg Q12HR GIO Administration Furosemide 40 mg 12/22/24 09:00 Furosemide Inj 10 Mg/Ml 4ml Vial IVP 01/21/25 08:59 QDAY GIO Glucagon 1 mg 12/20/24 13:25 Glucagon Inj 1 Mg Vial IM Q15MIN PRN BG <70, and no IV access Insulin Human Lispro 0 unit 12/20/24 17:00 12/21/24 12:17 Insulin Lispro (Admelog) 1 Unit/0.01 Ml Unit SC 01/19/25 16:59 Not Given AC [facility] Protocol Lisinopril 5 mg 12/21/24 10:45 12/21/24 12:15 Lisinopril 2.5 Mg Tablet PO 01/20/25 10:44 5 mg QDAY GIO Administration Ondansetron HCl 4 mg 12/20/24 02:54 Ondansetron Inj 2 Mg/Ml Inj 2 Ml IVP 01/19/25 02:53 Q6H PRN NAUSEA OR VOMITING Protocol Plan Assessment and Plan Patient is a 44 years old male with PMH of HFrEF, methamphetamine and THC use disorder who presented to the ED due to right-sided weakness and agitation and was found to have right hemiplegia, global aphasia and anarthria with forced left gaze deviation. He was admitted to ICU after TNK administration per stroke protocol. He was also found to have acute encephalopathy, acute on chronic decompensated congestive HF, elevated T Bili, TERRY, and subclinical hypothyroidism. #Acute CVA. Presented with right-sided weakness, which resolved after TNK administration Tele neuro consulted in the ED, NIHSS Score:?29, tenecteplase 20 mg administered in the ED at 1:26 AM on 12/20/2024. CT Head negative for hemorrhage, mass effect CT angio was inconclusive due to contrast bolus timing error and patient motion. MRI:acute infarcts left basal ganglia including left caudate nucleus, left parietal lobe S/P TNK repeat head CT at 2:00AM 12/21: No interval acute hemorrhage, mass effect or midline shift Patient was seen and assessed this morning and demonstrated CN2-12 grossly intact with 5/5 strength bilateral upper and lower extremity, fluent speech, and intact sensation. His presenting symptoms seem to have resolved. Plan: -Appreciate Neurology recs -Per neurology: started Asa 81mg daily and Clopidogrel 75mg po qd -DVT prophylaxis with TEDs and SCDs -Per CCM: Frequent neurochecks every hour to monitor any hemorrhagic conversion. NIH stroke scale Qshift -HOB 30 degree. -Euglycemia, avoid hyperthermia, PRN acetaminophen. -DVT prophylaxis SCDs. #Acute encephalopathy (resolved) Unknown reason, possible due to CVA vs substance ingestion (positive THC and meth, patient states last time using methamphetamine was last night). No trauma, fever, chills reported. Patient is currently A&O X4, cooperative, conversant Plan: - Continue to monitor #Acute on Chronic decompensated congestive HF #HFrEF, EF 15-20% #Methamphetamine-associated cardiomyopathy -On initial presentation, pt was found to be in decompensated HF, Pt had severe shortness of breath, hypoxia and 2+ lower extremities edema. -Pt has a history of HFrEF, follows [employer] Dr. Toan Mitchell in [facility] -Pt has long history of methamphetamine abuse, on admission pt's urine tox is positive - Echo done on 12/20/24- Dilated cardiomyopathy markedly dilated left ventricle with severe global systolic dysfunction ejection fraction 15 to 20% Normal-sized right ventricle with mild dysfunction of the right ventricle. Moderate mitral regurgitation secondary to dilated mitral annulus. Mild to moderate tricuspid regurgitation normal PA pressure. -BNP 1991 -Troponin 0.025 -NYHA class ll -Chest XR reveals prominent vascular congestion and mild heart failure -On hopsital day 2: patient demonstrates intermittent sob, with trace lower extremity edema and lungs clear to aucultation. Plan -Appreciate cardiology recs ?Per cardiology: continue home lasix 40mg daily -Continue home coreg and lisinopril, Pt will need optimization of GDMT if BP allows. -follow up with cardiology outpatient upon discharge -JOANIE is not recommended at this time due to clear echo findings, no evidence of mural thrombus and PFO, pt's stroke is less likely due to thromboembolic event -Fluid restriction to 2000ml -Strict I's and O's -Daily weights -Limit sodium intake to 2g daily #Elevated total bilirubin. T.bili 1.4, direct bili 0.5. upon admission Currently increased to 3.6 on hospital day 2. Pt is asymptomatic with no abdominal TTP. -Abdominal US: contracted gallbladder, no stones; liver 14.9 cm multiple small benign liver cyst fatty infiltration, mild right hydronephrosis - nonreactive hepatitis A/B/C Plan: - no acute biliary pathology on US - Monitor with repeat labs #TERRY. Baseline Cr 0.9, on admission Cr 1.3, likely due to fluid overload status, given dose of lasix. Cr is downtrending to 1.2 on hospital day 2 Plan: - avoid nephrotoxic agents. - renally dose medications. - strict I&O. - monitor with daily labs. #Subclinical hypothyroidism. On admission TSH 8.34, free T4 1.38. Plan: - Follow up outpatient in 4-6 weeks. Diet: Cardiac DVT prophylaxis: SCDs. GI prophylaxis: Famotidine. Code status: full code. [facility] Att[facility] Provider Attestation/Addendum I attest that I was physically present for the evaluation, physical examination, lab and imaging review of the patient with the residents. I discussed the case with the residents and agree with the findings and plans of care as documented above. Patient is a 44 years old male with past medical history of CHF, methamphetamine and THC abuse who presented with right sided weakness and agitation. Was found to have acute CVA, received Tenecteplase and was admitted to ICU for close monitoring. Follow up CT head after 24 hrs didnot show evidence of intracranial bleed, patient transferred to telemetry for further management. At bedside today, patient states he is feeling mildly short of breath, appears mildly diaphoretic, could be related to withdrawl. Lungs are clear to auscultate and does not have pedal edema. Neurologically, patient states he is back to his baseline. Continues to be Atorvastatin. Started dual antiplatelets as recommended by neurology. TTE negative for PFO, thrombus, will discuss with cardiology for possible need of JOANIE. Continues to be on Lasix 40, coreg and lisinopril for HFrEF. Noted to have worsening T. Danny, we will obtain liver US. On insulin regimen for diabetes. We will have PT reevaluation for disposition. Anticipate DC in 24 to 48 hrs if remains stable. Heather Rodriguez MD
--- NOTE | 2024-12-21 13:29 | ESPR_ITS ---
<Statement entered by Blair Neves MD - 12/22/24 00:28> The patient is reviewed and examined today in cardiology rounds patient's personally examined by me along with resident physician Dr. Smith agree with the treatment plan recommendation as recommended. PGY2 physician I do not see a clear indication for transesophageal echo which will not make a difference in management as there is no cardiac source of thrombi patient should be treated with antiplatelet therapy and guideline directed medical management for HFrEF low ejection fraction possibly methamphetamine related. Documentation for date of: 12/21/24 Subjective Subjective Interval history: Pt is seen at bedside, currently getting abdominal ultrasound done. Pt continues to be lethargic and somnolent. Repeat CT at 24 hours is negative for acute hemorrhage. BP is stable, Pt is tachycardic with HR of 118, in sinus rhythm. Labs are significant for mildly elevated white count 11.5, and t michelle 3.6 and normal AST and ALT. Pt's hepatitis panel is negative, denies right upper quadrant tenderness. Pt is not jaundice. Pt denies any chest pain, palpitations or SOB. No cardiac symptoms Exam Vital Signs Temp Pulse Resp BP Pulse Ox O2 Del Method O2 Flow Rate 96.8 F 60 20 125/97 H 99 Nasal Cannula 2 12/21/24 12:00 12/21/24 12:15 12/21/24 12:00 12/21/24 12:15 12/21/24 12:00 12/21/24 12:00 12/21/24 12:00 Narrative Exam GENERAL: A&Ox3 . middle aged lethargic appearing male, Not in acute distress NEURO: no focal neurological deficits noted HEENT: Atraumatic, Normocephalic. mucous membranes moist. Eyes open, symmetrical, & clear HEART: Normal Heart Sounds LUNGS: Clear to auscultation with no wheezing or crackles. ABDOMEN: soft, non-distended, non-tender, bowel sounds heard, no guarding or rebound tenderness SKIN: No Rash or ecchymoses EXTREMITIES: No edema, tenderness, able to move all 4 extremities, pedal pulses palpated Objective Labs 12/21/24 05:51 12/21/24 05:51 Labs: Laboratory Results - last 24 hr 12/20/24 12/21/24 12/21/24 17:37 05:00 05:51 WBC 11.7 H D 11.5 H RBC 5.89 5.74 Hgb 16.9 H D 16.6 H Hct 51.1 49.7 MCV 87 87 MCH 28.7 28.9 MCHC 33.1 33.4 RDW Std Deviation 48.3 H 48.1 H Plt Count 294 D 263 D Neut % (Auto) 80 72 Lymph % (Auto) 13 20 [place] % (Auto) 5 6 Eos % (Auto) 0 1 Baso % (Auto) 1 1 Neut # (Auto) 9.4 H 8.2 H Lymph # (Auto) 1.5 2.3 [place] # (Auto) 0.6 0.7 Eos # (Auto) 0.0 0.1 Baso # (Auto) 0.1 0.1 Immature Gran # (Auto) 0.02 H 0.03 H Absolute Nucleated RBC 0.00 0.00 Immature Gran % 0 0 Nucleated RBC % 0 0 Sodium 138 Potassium 5.0 D Chloride 104 Carbon Dioxide 23.8 Anion Gap 10 BUN 16 Creatinine 1.2 Estim Creat Clear Calc 81.1 eGFR > 60 BUN/Creatinine Ratio 13 Glucose 122 H Calculated Osmolality 277 Calcium 9.1 Corrected Calcium 9.3 Phosphorus 3.3 Magnesium 1.8 Total Bilirubin 3.6 H D AST 32 ALT 33 Alkaline Phosphatase 73 Total Protein 6.4 Albumin 3.8 Globulin 2.6 Albumin/Globulin Ratio 1.5 Hepatitis A IgM Ab Non Reactive Hep Bs Antigen Non Reactive Hep B Core IgM Ab Non Reactive Hepatitis C Antibody Non Reactive ABG Interpretation ABG results: 12/20/24 01:43 ABG pH 7.38 ABG pCO2 42 ABG pO2 54 L* ABG HCO3 25 ABG O2 Saturation 84 L ABG Base Excess -1 Quality Measures Quality Measures stroke Suspected type of Stroke: Acute Ischemic Tenecteplase given: within 60 min of arrival Rehab services: PT evaluation ordered VTE Prophylaxis: pharmaceutical Antithrombotic by day 2:: ordered Statin ordered: <75 y/o high intensity dose Anticoagulation ordered for A-fib or flutter (current or hx): not indicated Assessment & Plan Assessment Current Active Medications: Generic Name Dose Route Start Last Admin Trade Name Freq PRN Reason Stop Dose Admin Acetaminophen 650 mg 12/20/24 03:37 Acetaminophen Supp 650 Mg Supp SC 01/19/25 03:36 Q6HR PRN PAIN OR FEVER > 101 Aspirin 81 mg 12/21/24 10:00 12/21/24 12:15 Aspirin Ec 81 Mg Tabec PO 01/20/25 09:59 81 mg QDAY GIO Administration Atorvastatin Calcium 80 mg 12/20/24 21:00 12/20/24 20:29 Atorvastatin Calcium 20 Mg Tablet PO 01/19/25 20:59 80 mg HS GIO Administration Carvedilol 3.125 mg 12/21/24 10:45 12/21/24 12:14 Carvedilol 3.125 Mg Tablet PO 01/20/25 10:44 3.125 mg Q12HR GIO Administration Dextrose 25 ml 12/20/24 13:25 Dextrose 50%-Water Inj 50 Ml Syringe IV 01/19/25 13:24 Q15MIN PRN BG 50-70 responsive npo pt Dextrose 50 ml 12/20/24 13:25 Dextrose 50%-Water Inj 50 Ml Syringe IV 01/19/25 13:24 Q15MIN PRN BG <50 OR BG <70 & pt unresponsive Famotidine 20 mg 12/20/24 09:00 12/21/24 09:20 Famotidine Inj 10 Mg/Ml Vial 2 Ml IVP 01/19/25 08:59 20 mg Q12HR GIO Administration Furosemide 40 mg 12/22/24 09:00 Furosemide Inj 10 Mg/Ml 4ml Vial IVP 01/21/25 08:59 QDAY GIO Glucagon 1 mg 12/20/24 13:25 Glucagon Inj 1 Mg Vial IM Q15MIN PRN BG <70, and no IV access Insulin Human Lispro 0 unit 12/20/24 17:00 12/21/24 12:17 Insulin Lispro (Admelog) 1 Unit/0.01 Ml Unit SC 01/19/25 16:59 Not Given AC GIO Protocol Lisinopril 5 mg 12/21/24 10:45 12/21/24 12:15 Lisinopril 2.5 Mg Tablet PO 01/20/25 10:44 5 mg QDAY GIO Administration Ondansetron HCl 4 mg 12/20/24 02:54 Ondansetron Inj 2 Mg/Ml Inj 2 Ml IVP 01/19/25 02:53 Q6H PRN NAUSEA OR VOMITING Protocol Plan Mr. Chakraborty is a 44-year-old male with past medical history significant for HFrEF, hypertension, polysubstance use disorder including methamphetamine abuse and daily marijuana use presented to the ED on 12/19/2024 for stroke work up. On admission patient was also found to be in acute decompensated congestive heart failure therefore cardiology was consulted. #Acute on Chronic decompensated congestive HF #HFrEF, EF 15-20% #Methamphetamine-associated cardiomyopathy -On initial presentation, pt was found to be in decompensated HF, Pt had severe shortness of breath, hypoxia and 2+ lower extremities edema. -Pt has a history of HFrEF, follows [employer] Dr. Toan Mitchell in [facility] -Pt has long history of daily methamphetamine abuse, on admission pt's urine tox is positive - Echo done on 12/20/24- Dilated cardiomyopathy markedly dilated left ventricle with severe global systolic dysfunction ejection fraction 15 to 20% Normal-sized right ventricle with mild dysfunction of the right ventricle. Moderate mitral regurgitation secondary to dilated mitral annulus. Mild to moderate tricuspid regurgitation normal PA pressure. -BNP 1991 -Troponin 0.025 -NYHA class ll -Chest XR reveals prominent vascular congestion and mild heart failure Plan ?Cotninue home lasix 40mg daily -Continue home coreg and lisinopril, Pt will need optimization of GDMT if BP allows. 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 -JOANIE is not recommended at this time due to clear echo findings, no evidence of mural thrombus and PFO, pt's stroke is less likely due to thromboembolic event -Fluid restriction to 2000ml -Strict I's and O's -Daily weights -Limit sodium intake to 2g daily #Primary Hypertension On admission BP was WNL and has remained with in normal limits -home meds include Lisinopril 5 mg daily, Carvedilol 3.125 mg BID -Hold home antihypertensives due to permissive hypertension -Pt is on labetalol and nicardipine drip PRN -Continue to monitor BP and resume home meds when able #Acute ischemic stroke MRI of brain: Acute infarcts left basal ganglia including left caudate nucleus, left parietal lobe NIHSS score was 29 on presentation TNK 25 mg x 1 administered -management as per primary and neurology team -Negative bubble study #Polysubstance abuse -recommend cessation counseling and referral to administrative services officer #Elevated total bilirubin #TERRY #Subclinical hypothyroidism -Management as per primary team Thank you for the consult and allowing us to participate in the care of the patient. Cardiology will continue to follow. Assessment and plan discussed with my attending physician Dr. Edinson Smith (PGY-2)- Internal medicine resident
--- NOTE | 2024-12-21 16:09 | PC.SS ---
SS met with patient regarding his? d/c plan.? Pt is alert/oriented.? Pt was admitted for Stroke S/P TNK.? Pt confirmed demographic and contact information is correct on facesheet.? Pt resides with .? Pt ambulates independently without assistance or DME.? Pt is ok with all ADLs.? Patient?s pharmacy of choice is [facility].? Pt named his , Heike Torres medical decision maker if he is unable.? Patient?s choice is to return home upon d/c. will provide transportation at d/c. D/C plan:? Return home Next of Kin:? Heike Torres, , phone# [phone] PCP:? Dr. Heredia Address:? Correct on facesheet
[2024-12-21] MEDS: CLOPIDOGREL BISULFATE 75 MG TABLET PO (16:49)
[2024-12-21] MEDS: INSULIN LISPRO (AdmeLOG) 1 UNIT/0.01 ML UNIT SC (17:03)
[2024-12-21] MEDS: ATORVASTATIN CALCIUM 20 MG TABLET 80 MG PO (20:41)
[2024-12-22] VITALS (10 sets, daily range): BP systolic 95–114; BP diastolic 73–88; PULSE 89–120; RESP 18–99; TEMP 35.7–36.3; O2SAT 95–99
[2024-12-22] MEDS: INSULIN LISPRO (AdmeLOG) 1 UNIT/0.01 ML UNIT SC ×2 (07:52→11:57)
[2024-12-22 08:18] LABS: Alanine Aminotransferase 27 U/L (10-49); Albumin, Serum 3.5 gm/dL (3.5-5.0); Albumin/Globulin Ratio 1.6 (1.2-2.2); Alkaline Phosphatase 72 U/L (46-116); Anion Gap 9 (7-16); Aspartate Amino Transferase 27 U/L (0-34); BUN/Creatinine Ratio 21 Ratio (12-20); Bilirubin,Total 3.6 mg/dL (0.3-1.2); Blood Urea Nitrogen 23 mg/dL (9-23); Calcium 8.6 mg/dL (8.3-10.6); Calcium (Corrected) 9.0 mg/dL (8.5-10.1); Carbon Dioxide 26.0 mMol/L (20.0-31.0); Chloride 100 mMol/L (98-107); Creatinine (Component) 1.1 mg/dL (0.6-1.3); Estimated Creatinine Clearance 416.7 mL/min (>60); Globulin 2.2 gm/dL (2.3-3.5); Glucose 249 mg/dL (74-106); Osmolality,Calculated 281 (275-295); Potassium 4.4 mMol/L (3.4-5.1); Sodium 135 mMol/L (136-145); Total Protein 5.7 gm/dL (5.7-8.2); eGFR > 60 See Note
--- NOTE | 2024-12-22 08:27 | PD.RESPRO ---
Documentation for date of: 12/22/24 Subjective Subjective Interval history: Patient seen at bedside. Patient reports no complaints at this time. Exam Vital Signs Temp Pulse Resp BP Pulse Ox O2 Del Method O2 Flow Rate 97.2 F 109 H 20 114/84 99 Room Air 2 12/22/24 04:00 12/22/24 08:20 12/22/24 08:20 12/22/24 04:00 12/22/24 04:00 12/22/24 04:00 12/21/24 16:00 Narrative Exam General: No acute distress, well nourished Eye: PERRL, EOMI, normal conjunctiva, no scleral icterus HENT: Normocephalic, atraumatic, hearing intact to conversation at normal volume, moist oral mucosa Neck: Supple, non-tender, no JVD, no lymphadenopathy Lungs: Non-labored respirations, symmetric chest rise Heart: Peripheral pulses intact bilaterally Abdomen: Soft, non-tender, non-distended Musculoskeletal: Normal range of motion and strength Skin: Skin is warm, dry, no rashes or lesions. Psychiatric: Cooperative, appropriate mood and affect Neurologic: Mental status: Orientation: Oriented to person, place, time, and situation Communication: Patient is cooperative and can follow simple instructions Language: Speech vastly improved from initial exam, repetition intact, naming intact, normal rate and volume, comprehension intact Cranial nerves: CN II: Visual fortune intact CN III: Pupils equal, round, and reactive to light CN III, IV, : No gaze deviation, no nystagmus Horizontal pursuit: intact Vertical pursuit: intact Ptosis: none CN V: Facial sensation to light touch intact bilaterally at the forehead, cheeks, and jaw line CN VII: Face symmetric, no facial droop appreciated CN VIII: Able to hear and respond to conversation at normal volume, intact to finger rub CN IX, X: Palate elevation symmetric, uvula midline CN XI: Head turn and shoulder shrug strong, symmetric bilaterally CN XII: Normal tongue protrusion without deviation, no fasciculations Motor: Normal bulk and tone No atrophy No abnormal movements or fasciculations Muscle strength: Shoulder abduction: R 5/5 L 5/5 Elbow flexion: R 5/5 L 5/5 Elbow extension: R 5/5 L 5/5 Hip flexion: R 5/5 L 5/5 Hip extension: R 5/5 L 5/5 Knee flexion: R 5/5 L 5/5 Knee extension: R 5/5 L 5/5 Sensory: RUE: Light touch intact LUE: Light touch intact RLE: Light touch intact LLE: Light touch intact Reflexes: Biceps (C5-6): R 2+ L 2+ Brachioradialis (C5-6): R 2+ L 2+ Triceps (C7-8): R 2+ L 2+ Patellae (L3-4): R 2+ L 2+ Achilles (S1-2):R 2+ L 2+ No clonus Cerebellum: RUE: No dysmetria (finger to nose), no dysdiadochokinesia (rapid alternating movements) LUE: No dysmetria (finger to nose), no dysdiadochokinesia (rapid alternating movements) Objective Labs 12/21/24 05:51 12/22/24 06:14 Labs: Laboratory Results - last 24 hr 12/21/24 12/22/24 05:00 06:14 Sodium 135 L Potassium 4.4 D Chloride 100 Carbon Dioxide 26.0 Anion Gap 9 BUN 23 Creatinine 1.1 Estim Creat Clear Calc 416.7 eGFR > 60 BUN/Creatinine Ratio 21 H Glucose 249 H D Calculated Osmolality 281 Calcium 8.6 Corrected Calcium 9.0 Total Bilirubin 3.6 H AST 27 ALT 27 Alkaline Phosphatase 72 Total Protein 5.7 Albumin 3.5 Globulin 2.2 L Albumin/Globulin Ratio 1.6 Hepatitis A IgM Ab Non Reactive Hep Bs Antigen Non Reactive Hep B Core IgM Ab Non Reactive Hepatitis C Antibody Non Reactive ABG Interpretation ABG results: 12/20/24 01:43 ABG pH 7.38 ABG pCO2 42 ABG pO2 54 L* ABG HCO3 25 ABG O2 Saturation 84 L ABG Base Excess -1 Quality Measures Quality Measures stroke Suspected type of Stroke: Acute Ischemic Tenecteplase given: within 60 min of arrival Rehab services: PT evaluation ordered VTE Prophylaxis: not indicated Antithrombotic by day 2:: ordered Statin ordered: <75 y/o high intensity dose Anticoagulation ordered for A-fib or flutter (current or hx): not indicated Assessment & Plan Assessment Current Active Medications: Generic Name Dose Route Start Last Admin Trade Name Freq PRN Reason Stop Dose Admin Acetaminophen 650 mg 12/20/24 03:37 Acetaminophen Supp 650 Mg Supp GA 01/19/25 03:36 Q6HR PRN PAIN OR FEVER > 101 Aspirin 81 mg 12/21/24 10:00 12/21/24 12:15 Aspirin Ec 81 Mg Tabec PO 01/20/25 09:59 81 mg QDAY GIO Administration Atorvastatin Calcium 80 mg 12/20/24 21:00 12/21/24 20:41 Atorvastatin Calcium 20 Mg Tablet PO 01/19/25 20:59 80 mg HS GIO Administration Carvedilol 3.125 mg 12/21/24 10:45 12/21/24 20:41 Carvedilol 3.125 Mg Tablet PO 01/20/25 10:44 3.125 mg Q12HR GIO Administration Clopidogrel Bisulfate 75 mg 12/21/24 16:00 12/21/24 16:49 Clopidogrel Bisulfate 75 Mg Tablet PO 01/20/25 15:59 75 mg QDAY GIO Administration Dextrose 25 ml 12/20/24 13:25 Dextrose 50%-Water Inj 50 Ml Syringe IV 01/19/25 13:24 Q15MIN PRN BG 50-70 responsive npo pt Dextrose 50 ml 12/20/24 13:25 Dextrose 50%-Water Inj 50 Ml Syringe IV 01/19/25 13:24 Q15MIN PRN BG <50 OR BG <70 & pt unresponsive Famotidine 20 mg 12/20/24 09:00 12/21/24 20:41 Famotidine Inj 10 Mg/Ml Vial 2 Ml IVP 01/19/25 08:59 20 mg Q12HR GIO Administration Furosemide 40 mg 12/22/24 09:00 Furosemide Inj 10 Mg/Ml 4ml Vial IVP 01/21/25 08:59 QDAY GIO Glucagon 1 mg 12/20/24 13:25 Glucagon Inj 1 Mg Vial IM Q15MIN PRN BG <70, and no IV access Insulin Human Lispro 0 unit 12/20/24 17:00 12/22/24 07:52 Insulin Lispro (Admelog) 1 Unit/0.01 Ml Unit SC 01/19/25 16:59 1 unit AC GIO Administration Protocol Lisinopril 5 mg 12/21/24 10:45 12/21/24 12:15 Lisinopril 2.5 Mg Tablet PO 01/20/25 10:44 5 mg QDAY GIO Administration Ondansetron HCl 4 mg 12/20/24 02:54 Ondansetron Inj 2 Mg/Ml Inj 2 Ml IVP 01/19/25 02:53 Q6H PRN NAUSEA OR VOMITING Protocol Plan #Acute ischemic stroke s/p TNK Initial symptoms: right-sided weakness, aphasia, dysarthria. NIHSS score was 29 on presentation TNK 25 mg x 1 administered with gradual improvement of symptoms CT head negative for acute hemorrhage, mass effect, midline shift CTA negative for LVO, limited 2/2 contrast bolus timing MR stroke: Acute infarcts left basal ganglia including left caudate nucleus, left parietal lobe TTE: Negative for PFO. No cardiac thrombus. LVEF 15-20%. Dilated cardiomyopathy markedly dilated left ventricle with severe global systolic dysfunction. Normal-sized right ventricle with mild dysfunction of the right ventricle. Moderate mitral regurgitation secondary to dilated mitral annulus. Mild to moderate tricuspid regurgitation normal PA pressure. 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 Patient will continue with aspirin and Plavix for 21 days followed by Plavix and statin. - Pending Hypercoagulability w/u - F/U labs in outpatient - F/U with outpatient neurology #Acute encephalopathy, resolved UDS positive for THC and meth Patient initially agitated, then lethargic. Now able to follow commands and stay awake during interview Plan: - Continue to monitor #HFrEF 15-20% #Dilated cardiomyopathy TTE: Negative for PFO. No cardiac thrombus. LVEF 15-20%. Dilated cardiomyopathy markedly dilated left ventricle with severe global systolic dysfunction. Normal-sized right ventricle with mild dysfunction of the right ventricle. Moderate mitral regurgitation secondary to dilated mitral annulus. Mild to moderate tricuspid regurgitation normal PA pressure. Most likely 2/2 methamphetamine use BNP 1991 Troponin WNL JOANIE is not recommended at this time due to clear echo findings, no evidence of mural thrombus and PFO, pt's stroke is less likely due to thromboembolic event Plan ? Management per primary team, cardiology #History of hypertension Dx May 2024. Home meds: Lisinopril 5 mg daily, Carvedilol 3.125 mg BID Plan: - Management per primary team #Acute hypoxic respiratory failure, improving Most likely 2/2 pulmonary edema due to severe CHF, less likely to be pneumonia. Patient was requiring 3 L of oxygen on presentation. Now saturating appropriately on 1L NC. Plan - Management per primary team #Polysubstance use disorder UDS + methamphetamine, THC Advised him about the importance of drug cessation, family welfare social work professor will provide him with resources upon discharge. Plan: - F/U with family welfare social work professor for drug addiction resources Plan discussed with Dr. Emmie Adams, PGY1 Attending Provider Attestation/Addendum I have reviewed the patient information virtually and I agreed with the resident's findings, assessment and plan of care. Patient is stable for discharge from neurology standpoint on aspirin and Plavix with statin. Will follow-up with the hypercoagulopathy workup as an outpatient.
[2024-12-22] MEDS: FUROSEMIDE INJ 10 MG/ML 4ML VIAL 40 MG IVP (08:45)
[2024-12-22] MEDS: CLOPIDOGREL BISULFATE 75 MG TABLET PO (08:45)
[2024-12-22] MEDS: FAMOTIDINE INJ 10 MG/ML VIAL 2 ML 20 MG IVP (08:45)
[2024-12-22] MEDS: ASPIRIN EC 81 MG TABEC PO (08:46)
--- NOTE | 2024-12-22 13:28 | ESDS_ITS ---
<Statement entered by Reji Santacruz MD - 12/22/24 22:07> I have reviewed the note and agree with the resident's assessment & plan with exceptions as below. I have personally reviewed labs, imaging, home meds/prior records, examined the patient, formulated and discussed management plan with the IM team. Pt examined at bedside today. Pt continues to improve, PT recommending home health PT, Speech therapy cleared pt from having dysphagia. Pt to continue with DAPT for 21 days as he had an acute CVA while admitted.. Pt will need to continue with GDMT therapy as BP tolerates, he is to see his Visual Communications Instructor in [place]. He will be discharged with ACEi, and Coreg and will have other medications with his PCP and cardiology. Recommended pt to see Addiction medicine, PCP referral. Pt did have elevated bilirubin 3.6, however abd exam upon d/c was benign, and abdominal US was unremarkable. Pt is to follow the discharge instructions as outlined below in the discharge summary. #Acute CVA of L basal ganglia, caudate nucleus and parietal lobe #Acute encephalopathy (resolved) #Acute on Chronic decompensated congestive HF #HFrEF, EF 15-20% #Methamphetamine-associated cardiomyopathy #Elevated total bilirubin #TERRY #Subclinical hypothyroidism Reji Santacruz, PGY-2 Internal Medicine Planned Discharge Date 12/22/24 DS: Providers Provider Date of admission: 12/20/24 02:55 Primary care physician: Physician No Primary/Family Admitting Provider: Manuel Vanegas MD Attending Provider on Admission: Ugo Haynes MD Consults: 12/20/24 01:01 Consult to Neurology / Tele-Neurology Routine Comment: Consulting Provider: [facility] 12/20/24 02:58 Consult to Neurology / Tele-Neurology Routine Comment: stroke s/p TNK Consulting Provider: Felix Olea Referral Physical Therapy Routine Comment: Physician Instructions: Referral Speech Therapy Routine Comment: 12/20/24 09:35 Consult to Cardiology Stat Comment: Stroke, bedside US EF 10% Consulting Provider: Blair Neves Attending Provider on DC: Manuel Vanegas MD Discharging Provider: Manuel Vanegas MD Anticipated date of discharge: 12/22/24 DS: Diagnosis Problem List Completed Was Problem List Reviewed/Reconciled?: Yes Hospital Course Hospital Course Hospital course: A 44 years old male with PMH of HFrEF, methamphetamine and THC use disorder who was admitted to [facility] on 12/20/2024 for Acute CVA s/p TNK. ED Course: On arrival to the ED his blood pressure 178/100, pulse 111, respirations 24, oxygen saturation 95% on room air. Labs showed glucose 126, total bilirubin 1.4, BNP 1992, TSH 8.34. Urinalysis showed blood 1+, RBCs 5. Urine tox screen showed positive amphetamine and THC. ABG showed pH 7.38, PO2 54, PCO2 42. Head CT and CTA showed no LVO, hemorrhage or mass effect. Tele neuro consulted in the ED, NIHSS Score:?29, tenecteplase 20 mg administered in the ED at 1:26 AM on 12/20/2024. Several minutes after TNK administration patient was able to move his right upper and lower extremity however continued to be uncooperative so full assessment was deferred. He was admitted to ICU for further management where he was also found to have acute encephalopathy, CHF exacerbation, TERRY, hyperbilirubinemia, and subclinical hypothyroidism. Imaging: CT Head negative for hemorrhage, mass effect CT angio was inconclusive due to contrast bolus timing error and patient motion. MRI:acute infarcts left basal ganglia including left caudate nucleus, left parietal lobe S/P TNK repeat head CT at 2:00AM 12/21: No interval acute hemorrhage, mass effect or midline shift Echo done on 12/20/24- Dilated cardiomyopathy markedly dilated left ventricle with severe global systolic dysfunction ejection fraction 15 to 20% Hospital Course: Patient was downgraded from ICU after resolution of his focal neuro deficits, and encephalopathy. Patients was at baseline upon downgrade and was found to be A&O x4 with no focal deficits, full strength and intact sensation. We started Asa 81mg daily as well as Clopidogrel 75mg daily after head ct was negative for acute hemorrhage which he will continue for 21 days after d/c per neruo recommendations. His acute on chronic heart failure with EF showing 15-20% and methamphetamine- associated cardiomyopathy, and HTN was managed with 1 dose of furosemide 40mg IV as well as continuing home coreg, and lisinopril. Patient was placed on strict fluid restriction of 2000 ml, strict I&Os, daily weights, and sodium intake was limited to 2g daily. Patient also agrees to follow up outpatient with addiction medication, and cardiology (his boat driver is in [place]). We counseled patient on the importance of ceasing substance abuse, medication adherence, and outpatient follow up. Patients elevated total bilirubin was noted to be elevated upon admission and remained elevated throughout stay. However, there is low suspicion for acute biliary process as physical exam, CBC, and abdominal US was negative. We recommend outpatient follow up for persistent elevation. Patients TERRY downtrended and resolved during his stay as his Cr. downtrended from 1.3 to 1.1. Subclinical hypothyroidism was noted on admission with a TSH of 8.34 and free T4 was 1.38 (wnl). We recommend outpatient follow up in 3-4 weeks. Imaging: Abdominal US: Benign small liver cysts, contracted gallbladder, no stones Consults: Neurology and Cardiology assisted in management of this patient. We appreciated their recommendations Discharge Instructions Follow-up with PCP within 1-2 weeks of discharge. Follow up with Neurologist, Emmie Gregory within one to two weeks, [phone]. This is the brain doctor. Follow up with your boat driver in [place] within one to two weeks STOP using METHAMPHATEMINE, speak with your PCP to refer you to an Addiction Medicine specialist Take your Aspirin and Plavix as you had a stroke, and you need to take this for 21 days Take your statin medicine, as you had a stroke, Atorvastatin 80 mg Continue with Physical Therapy at home Continue with Lisinopril, and Coreg, part of goal directed medical therapy. Continue with Lasix as this is your water pill Neurology ordered multiple tests in regards to hypercoaguability, follow up with your PCP in regards to this Follow up with a CMP to evaluate elevated total bilirubin within one week Continue taking medications as prescribed below Return to Emergency Room if symptoms persist, worsen, or new symptoms develop Problem List #Acute CVA (resolved) #Acute encephalopathy (resolved) #Acute on Chronic decompensated congestive HF (resolved) #HFrEF, EF 15-20% #Methamphetamine-associated cardiomyopathy #Elevated total bilirubin #TERRY #Subclinical hypothyroidism Case and discharge summary discussed with my attending physician, Dr. Vanegas, and my senior resident, Dr. Noam Russo, [facility] Time Spent with Patient Time attestation: Total time spent providing and/or coordinating discharge services: Time spent: Greater than 30 minutes Quality: Stroke Pt Provided Written Stroke Discharge Instructions: Yes Rehab Services Assessed: Physical therapy assessment (Referral for home health for physical therapy are placed) Home Health Home Health Referral Orders: 12/22/24 09:38 Home Health Referral Routine Reason For Exam: Physical therapy Home-Bound The patient must either because of illness or injury, need the aid of supportive devices such as crutches, canes, wheelchairs, and walkers; the use of special transportation; or the assistance of another person in order to leave their place of residence; OR have a condition such that leaving his or her home is medically contraindicated. In addition, the patient also meets the following criteria: patient is normally unable to leave the home and leaving home requires considerable taxing effort. Addendum to Home Health Certification Practitioner's Certification: I certify that the patient has been under my care in the hospital and the care of attending physician (see below). We had a [id number] encounter on (see date below). My clinical findings indicate that the patient is home bound per the above criteria and the Home Health Services noted in these orders are medically necessary. The primary reason for the [id number] encounter is related to the fact that the patient requires home health services. Date Certifying [id number] Physician Encounter: 12/20/24 Physician's Name who will Assume Oversight for Services: Kolton Blair [employer] - Community Resources: No PT to Evaluate: Yes PT to evaluate and provide a treatmnet plan to increase patient's mobility and strength. Wound Care: No IV Therapy: No RN Safety Evaluation: Yes RN to evaluate and create a plan of care that will produce positive outcomes. Palliative Treatment: No Palliative treatment and evaluate the need for hospice. Home Health Aide - Personal Care: No Home Health Aide to assist with any ADL's. Exam Vital Signs Temp Pulse Resp BP Pulse Ox O2 Del Method O2 Flow Rate 97.0 F 112 H 18 105/84 99 Room Air 2 12/22/24 11:49 12/22/24 11:49 12/22/24 11:49 12/22/24 11:49 12/22/24 11:49 12/22/24 11:49 12/21/24 16:00 Narrative Exam General: Patient is A&O x4, not in any acute distress HEENT: normocephalic, atraumatic, PERRL, EOM intact Cardio: Normal S1,S2, I was not able to appreciate any murmurs/rubs/gallops Pulm:Lungs clear to auscultation bilaterally Abdominal:bowel sounds present, abdomen is soft, nontender with no rigidity or guarding MSK: 5/5 strength in upper and lower extremity, full ROM Neuro: CN 2-12 grossly intact, 5/5 strength and intact sensation in bilateral upper and lower extremity, speech is fluent with appropriate rate and articulation Discharge Plan Plan Patient Disposition: Home w/HOME HEALTH Patient condition on transfer: Stable Care Plan Goals: Discharge Instructions Follow-up with PCP within 1-2 weeks of discharge. Follow up with Neurologist, Emmie Gregory within one to two weeks, [phone]. This is the brain doctor. Follow up with your boat driver in [place] within one to two weeks STOP using METHAMPHATEMINE, speak with your PCP to refer you to an Addiction Medicine specialist Take your Aspirin and Plavix as you had a stroke, and you need to take this for 21 days Take your statin medicine, as you had a stroke, Atorvastatin 80 mg Continue with Physical Therapy at home Continue with Lisinopril, and Coreg, part of goal directed medical therapy. Continue with Lasix as this is your water pill Neurology ordered multiple tests in regards to hypercoaguability, follow up with your PCP in regards to this Follow up with a CMP to evaluate elevated total bilirubin within one week Continue taking medications as prescribed below Return to Emergency Room if symptoms persist, worsen, or new symptoms develop Prescriptions/Referrals Prescriptions/Med Rec: New atorvastatin 20 mg Tablet 80 mg PO HS Qty: 30 0RF clopidogrel 75 mg Tablet 75 mg PO QDAY Qty: 21 0RF aspirin 81 mg Tablet,Delayed Release (Dr/Ec) 81 mg PO QDAY Qty: 30 0RF Continued carvedilol 3.125 mg tablet 3.125 mg PO Q12H Patient Comments: TAKE 1 TABLET BY MOUTH EVERY 12 HOURS WITH FOOD buspirone 10 mg tablet 10 mg PO Q12HR Patient Comments: TAKE 1 TABLET BY MOUTH EVERY 12 HOURS lisinopril 5 mg tablet 5 mg PO QDAY Patient Comments: TAKE 1 TABLET BY MOUTH DAILY furosemide 20 mg tablet 20 mg PO QDAY Patient Comments: TAKE 1 TABLET BY MOUTH DAILY NEEDED Discontinued naproxen 500 mg tablet 500 mg PO BID Qty: 14 0RF amoxicillin-pot clavulanate 875-125 mg tablet 1 tab PO BID Qty: 14 0RF doxycycline hyclate 100 mg capsule 100 mg PO BID Qty: 14 0RF ProAir RespiClick 90 mcg/actuation aerosol powdr breath activated 2 inh inhalation QID PRN (Reason: shortness of breath) Qty: 1 0RF Referrals: No Primary/Family,Physician [Primary Care Provider] - Patient/Caregiver Discharge Instructions Discharge Activity: activity as tolerated Other Discharge Activity Instructions:: Discharge Instructions Follow-up with PCP within 1-2 weeks of discharge. Follow up with Neurologist, Emmie Gregory within one to two weeks, [phone]. This is the brain doctor. Follow up with your boat driver in [place] within one to two weeks STOP using METHAMPHATEMINE, speak with your PCP to refer you to an Addiction Medicine specialist Take your Aspirin and Plavix as you had a stroke, and you need to take this for 21 days Take your statin medicine, as you had a stroke, Atorvastatin 80 mg Continue with Physical Therapy at home Continue with Lisinopril, and Coreg, part of goal directed medical therapy. Continue with Lasix as this is your water pill Neurology ordered multiple tests in regards to hypercoaguability, follow up with your PCP in regards to this Follow up with a CMP to evaluate elevated total bilirubin within one week Continue taking medications as prescribed below Return to Emergency Room if symptoms persist, worsen, or new symptoms develop Education Materials: Effects of a Stroke on the ..., Discharge Instructions for Stroke, Risk Factors for Stroke, Stroke Prevention Activity Print Language: Singaporean Stand Alone Forms: [employer] Award Info., Patient Portal Info Letter Discharge Order Discharge Orders: Discharge (Routine); Ordered 12/22/24 Ordered By: Jamey Bates Quality Discharge Quality Measures VTE prophylaxis (SCDs) Attestestation MD Attestation I have examined the patient, reviewed labs and imaging findings, discussed the case with the resident(s), and reviewed entered orders. I agree with the plan of care as outlined in this note. Time Spent: [address] Guilherme MD
--- NOTE | 2024-12-22 14:59 | PC.CC ---
Addendum entered by Jarod Isaacs RN 12/22/24 15:32: 1530 [facility] accepted patient HH. SOC 12/24/24. Original Note: 1500 reviewed SS documentation no preference for HH services. Clinicals sent to all HH services.
--- NOTE | 2024-12-22 15:22 | ESPR_ITS ---
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 Cardiac echo showed severe LV dysfunction chronic is NYHA class IV symptoms patient's prognosis extremely poor patient not a candidate for ICD implantation because of severely depressed ejection fraction but class IV congestive heart failure he has to be at least class II or III before ICD implantation is considered. No cardiac arrhythmias detected evaluated patient with resident physician PGY 2 Dr. Smith agree with the treatment plan recommendation as documented patient can be discharged on guideline directed medical management as documented. Documentation for date of: 12/22/24 Subjective Subjective Interval history: Pt is seen at bedside, denies any shortness of breath, chest pain or palpitations. Pt does not exhibit any signs of residual deficits post CVA. Pt is counseled on close follow up with his client evaluator in [place] and adding entresto if BP is able to tolerate would benefit his overal cardaic function. Pt is also advised to abstein from drug use including methamphetamins. Exam Vital Signs Temp Pulse Resp BP Pulse Ox O2 Del Method O2 Flow Rate 97.0 F 94 18 105/84 99 Room Air 2 12/22/24 11:49 12/22/24 12:00 12/22/24 11:49 12/22/24 11:49 12/22/24 11:49 12/22/24 11:49 12/21/24 16:00 Narrative Exam GENERAL: A&Ox3 . middle aged lethargic appearing male, Not in acute distress NEURO: no focal neurological deficits noted HEENT: Atraumatic, Normocephalic. mucous membranes moist. Eyes open, symmetrical, & clear HEART: Normal Heart Sounds LUNGS: Clear to auscultation with no wheezing or crackles. ABDOMEN: soft, non-distended, non-tender, bowel sounds heard, no guarding or rebound tenderness SKIN: No Rash or ecchymoses EXTREMITIES: No edema, tenderness, able to move all 4 extremities, pedal pulses palpated Objective Labs 12/21/24 05:51 12/22/24 06:14 Labs: Laboratory Results - last 24 hr 12/22/24 06:14 Sodium 135 L Potassium 4.4 D Chloride 100 Carbon Dioxide 26.0 Anion Gap 9 BUN 23 Creatinine 1.1 Estim Creat Clear Calc 416.7 eGFR > 60 BUN/Creatinine Ratio 21 H Glucose 249 H D Calculated Osmolality 281 Calcium 8.6 Corrected Calcium 9.0 Total Bilirubin 3.6 H AST 27 ALT 27 Alkaline Phosphatase 72 Total Protein 5.7 Albumin 3.5 Globulin 2.2 L Albumin/Globulin Ratio 1.6 ABG Interpretation ABG results: 12/20/24 01:43 ABG pH 7.38 ABG pCO2 42 ABG pO2 54 L* ABG HCO3 25 ABG O2 Saturation 84 L ABG Base Excess -1 Quality Measures Quality Measures stroke Suspected type of Stroke: Acute Ischemic Tenecteplase given: within 60 min of arrival Rehab services: PT evaluation ordered VTE Prophylaxis: pharmaceutical Antithrombotic by day 2:: ordered Statin ordered: <75 y/o high intensity dose Anticoagulation ordered for A-fib or flutter (current or hx): not indicated Assessment & Plan Assessment Current Active Medications: Generic Name Dose Route Start Last Admin Trade Name Freq PRN Reason Stop Dose Admin Acetaminophen 650 mg 12/20/24 03:37 Acetaminophen Supp 650 Mg Supp MS 01/19/25 03:36 Q6HR PRN PAIN OR FEVER > 101 Aspirin 81 mg 12/21/24 10:00 12/22/24 08:46 Aspirin Ec 81 Mg Tabec PO 01/20/25 09:59 81 mg QDAY GIO Administration Atorvastatin Calcium 80 mg 12/20/24 21:00 12/21/24 20:41 Atorvastatin Calcium 20 Mg Tablet PO 01/19/25 20:59 80 mg HS GIO Administration Carvedilol 3.125 mg 12/22/24 17:30 Carvedilol 3.125 Mg Tablet PO 01/21/25 17:29 BIDWM GIO Clopidogrel Bisulfate 75 mg 12/21/24 16:00 12/22/24 08:45 Clopidogrel Bisulfate 75 Mg Tablet PO 01/20/25 15:59 75 mg QDAY GIO Administration Dextrose 25 ml 12/20/24 13:25 Dextrose 50%-Water Inj 50 Ml Syringe IV 01/19/25 13:24 Q15MIN PRN BG 50-70 responsive npo pt Dextrose 50 ml 12/20/24 13:25 Dextrose 50%-Water Inj 50 Ml Syringe IV 01/19/25 13:24 Q15MIN PRN BG <50 OR BG <70 & pt unresponsive Famotidine 20 mg 12/20/24 09:00 12/22/24 08:45 Famotidine Inj 10 Mg/Ml Vial 2 Ml IVP 01/19/25 08:59 20 mg Q12HR GIO Administration Furosemide 40 mg 12/22/24 09:00 12/22/24 08:45 Furosemide Inj 10 Mg/Ml 4ml Vial IVP 01/21/25 08:59 40 mg QDAY GIO Administration Glucagon 1 mg 12/20/24 13:25 Glucagon Inj 1 Mg Vial IM Q15MIN PRN BG <70, and no IV access Insulin Human Lispro 0 unit 12/20/24 17:00 12/22/24 11:57 Insulin Lispro (Admelog) 1 Unit/0.01 Ml Unit SC 01/19/25 16:59 1 unit AC GIO Administration Protocol Lisinopril 5 mg 12/21/24 10:45 12/22/24 08:46 Lisinopril 2.5 Mg Tablet PO 01/20/25 10:44 5 mg QDAY GIO Administration Ondansetron HCl 4 mg 12/20/24 02:54 Ondansetron Inj 2 Mg/Ml Inj 2 Ml IVP 01/19/25 02:53 Q6H PRN NAUSEA OR VOMITING Protocol Plan Mr. Chakraborty is a 44-year-old male with past medical history significant for HFrEF, hypertension, polysubstance use disorder including methamphetamine abuse and daily marijuana use presented to the ED on 12/19/2024 for stroke work up. On admission patient was also found to be in acute decompensated congestive heart failure therefore cardiology was consulted. #Acute on Chronic decompensated congestive HF #HFrEF, EF 15-20% #Methamphetamine-associated cardiomyopathy -On initial presentation, pt was found to be in decompensated HF, Pt had severe shortness of breath, hypoxia and 2+ lower extremities edema. -Pt has a history of HFrEF, follows client evaluator Dr. Toan Mitchell in [facility] -Pt has long history of daily methamphetamine abuse, on admission pt's urine tox is positive - Echo done on 12/20/24- Dilated cardiomyopathy markedly dilated left ventricle with severe global systolic dysfunction ejection fraction 15 to 20% Normal-sized right ventricle with mild dysfunction of the right ventricle. Moderate mitral regurgitation secondary to dilated mitral annulus. Mild to moderate tricuspid regurgitation normal PA pressure. -BNP 1991 -Troponin 0.025 -NYHA class ll -Chest XR reveals prominent vascular congestion and mild heart failure Plan ?Cotninue home lasix 40mg daily -Continue home coreg and lisinopril, Pt will need optimization of GDMT if BP allows. -Pt will need to follow up with his client evaluator outpatient upon discharge -JOANIE is not recommended at this time due to clear echo findings, no evidence of mural thrombus and PFO, pt's stroke is less likely due to thromboembolic event -Fluid restriction to 2000ml -Strict I's and O's -Daily weights -Limit sodium intake to 2g daily #Primary Hypertension On admission BP was WNL and has remained with in normal limits -home meds include Lisinopril 5 mg daily, Carvedilol 3.125 mg BID -Hold home antihypertensives due to permissive hypertension -Pt is on labetalol and nicardipine drip PRN -Continue to monitor BP and resume home meds when able #Acute ischemic stroke MRI of brain: Acute infarcts left basal ganglia including left caudate nucleus, left parietal lobe NIHSS score was 29 on presentation TNK 25 mg x 1 administered -management as per primary and neurology team -Negative bubble study #Polysubstance abuse -recommend cessation counseling and referral to social sciences lecturer #Elevated total bilirubin #TERRY #Subclinical hypothyroidism -Management as per primary team Assessment and plan discussed with my attending physician Dr. Edinson Smith (PGY-2)- Internal medicine resident
--- NOTE | 2024-12-24 14:43 | PC.CC ---
Received call from Sharmila at [facility] agency, they were unable to start care on today's date, patient had not seen PCP in more than 90 days, patient informed them he has a new appointment with MD for follow up, he will provide [facility] with this date and they will coordinate start of care.
[2024-12-28 17:52] LABS: Cardiolipin Ab IgA <2.0 APL-U/mL; Cardiolipin Ab IgG <2.0 GPL-U/mL
[2024-12-29 06:29] LABS: Antithrombin III, Activity 67 % normal (80-135); Antithrombin III, Antigen 70 % normal (80-120); B2-Glycoprotein I Ab IgA <2.0 U/mL; B2-Glycoprotein I Ab IgG <2.0 U/mL; B2-Glycoprotein I Ab IgM <2.0 U/mL; Cardiolipin Ab IgM <2.0 MPL-U/mL; Factor V Leiden Mutation NEGATIVE; Homocysteine* 10.3 umol/L (< OR = 13.5); PTT-LA Screen 35 seconds (< OR = 40); Phos.Serine Ab IgG <9 U (< OR = 30); Phos.Serine Ab IgM 12 U (< OR = 30); Protein C Activity* 65 % normal (70-180); Protein C Antigen, Total* 66 % normal (70-140); Protein S Antigen, Total* 83 % normal (70-140); dRVVT Screen 35 seconds (< OR = 45)
== END 2024-12-22 13:47 | disposition home health service (06) | DRG 45 ==
LOC: SERX 02:54 → SERHOLD 03:24 → S2SX 04:52 → S2NX 12-21 06:31 → S2SX 12-24 08:11
PROVIDERS: Psychiatry & Neurology Neurology; Student in an Organized Health Care Education/Training Program; Admitting Provider Student in an Organized Health Care Education/Training Program; Emergency Provider Emergency Medicine; Visit Provider Internal Medicine
DX: I63.512 Cerebral infarction due to unspecified occlusion or stenosis of left middle cerebral artery (principal); I11.0 Hypertensive heart disease with heart failure; J18.9 Pneumonia, unspecified organism; G93.40 Encephalopathy, unspecified; R47.01 Aphasia; G81.91 Hemiplegia, unspecified affecting right dominant side; R47.1 Dysarthria and anarthria; R29.810 Facial weakness; R29.729 NIHSS score 29; E11.9 Type 2 diabetes mellitus without complications; F15.90 Other stimulant use, unspecified, uncomplicated; F17.200 Nicotine dependence, unspecified, uncomplicated; F19.20 Other psychoactive substance dependence, uncomplicated; F12.90 Cannabis use, unspecified, uncomplicated; E03.8 Other specified hypothyroidism; I50.22 Chronic systolic (congestive) heart failure; I42.0 Dilated cardiomyopathy; I42.7 Cardiomyopathy due to drug and external agent; N17.9 Acute kidney failure, unspecified; R13.10 Dysphagia, unspecified; Z79.02 Long term (current) use of antithrombotics/antiplatelets; J96.01 Acute respiratory failure with hypoxia; I34.0 Nonrheumatic mitral (valve) insufficiency; I07.1 Rheumatic tricuspid insufficiency; Z79.4 Long term (current) use of insulin; Z79.82 Long term (current) use of aspirin; Z79.899 Other long term (current) drug therapy
CPT/HCPCS: 36415; 36600; 70450; 70496; 70498; 70544; 71045; 76700; 80053; 80061; 80074; 80307; 80320; 81001; 81241; 82140; 82248; 82550; 82803; 83036; 83090; 83735; 83880; 84100; 84439; 84443; 84484; 85025; 85300; 85301; 85302; 85303; 85305; 85610; 85613; 85730; 86146; 86147; 86148; 87081; 87086; 92523; 92610; 93005; 93306; 96374; 97162; 99291; A4314; A4649; J1815; J1938; J3101; J3475; J3480; J3490; Q9967; A9270; G0480

== ENCOUNTER 2025-01-03 15:55 | Emergency (ER) | payer MEDICAID, SELFPAY ==
[2025-01-03 16:26] VITALS: BP 122/87; PULSE 120; RESP 19; TEMP 36.4; O2SAT 98; BMI 27.6
--- NOTE | 2025-01-03 16:27 | XR_ITS ---
Examination: AP lateral chest 2 views TECHNIQUE: Upright AP lateral chest 2 views Date and time: January 03, 2025 1656 hours INDICATIONS: Chest pains are surrounded beginning 2 days ago. FINDINGS: Mild to moderate enlargement cardiac contour Moderate vascular congestion. No lobar pneumonia or viola pulmonary edema IMPRESSION: Mild to moderate enlargement cardiac contour. Moderate vascular congestion
--- NOTE | 2025-01-03 16:27 | EKG_ITS ---
[facility] Test Date: 2025-01-03 Pat Name: NATHANAEL IBARRA Department: Room: - Gender: Male [employer] Commerce Developer: : 1980 Requested By: Jem Lorenzo Order Number: [id number] Reading MD: Jem Lorenzo Measurements Intervals [place] Rate: 122 P: 67 VA: 158 QRS: 262 QRSD: 108 T: 65 QT: 322 QTc: 460 Interpretive Statements SINUS TACHYCARDIA RIGHT AXIS DEVIATION [QRS AXIS > 100] POSSIBLE ANTERIOR MYOCARDIAL INFARCTION , OF INDETERMINATE AGE [30 ms Q WAVE IN V3/V4, OR R < 0.2 mV IN V4] Compared to ECG 06/13/2024 15:14:14 Myocardial infarct finding now present /store/S0/[id number].pdf
--- NOTE | 2025-01-03 16:27 | PD.EDRME ---
Rapid Medical Screening Exam RME Arrival date/time: 01/03/25 15:55 44-year-old male with a history of hyperlipidemia, CHF, hypertension, a CVA that occurred last year presents to the emergency room with a chief complaint of shortness of breath and bilateral lower extremity swelling I have greeted and performed a focused initial assessment of this patient. A comprehensive ED assessment and evaluation of the patient, analysis of all test results, and completion of the medical decision making process will be conducted by additional ED providers. Chief Complaint: Shortness of Breath/Dyspnea Time Seen by Provider: 01/03/25 16:23 Vital signs reviewed by provider: Yes
[2025-01-03 17:18] LABS: Basophils # (Auto) 0.1 Thou/mm3 (0.0-0.2); Basophils % (Auto) 1 % (0-2.5); Eosinophils # (Auto) 0.1 Thou/mm3 (0.0-0.5); Eosinophils % (Auto) 1 % (0-10); Hematocrit 41.1 % (41.0-53.0); Hemoglobin 13.8 g/dL (13.5-16.0); Immature Granulocytes Auto 0.02 Thou/mm3 (0.00-0.00); Lymphocytes # (Auto) 2.3 Thou/mm3 (1.0-4.8); Lymphocytes % (Auto) 31 % (10-50); Mean Corpuscular HGB Conc 33.6 g/dl (31.0-37.0); Mean Corpuscular Hemoglobin 29.1 pg (25.0-35.0); Mean Corpuscular Volume 87 fL (80-100); Monocytes # (Auto) 0.6 Thou/mm3 (0.0-0.8); Monocytes % (Auto) 8 % (0-12); Neutrophils # (Auto) 4.4 Thou/mm3 (1.8-7.7); Neutrophils % (Auto) 60 % (37-80); Nucleated Red Blood Cell # 0.00 Thou/mm3 (0.00-0.00); Nucleated Red Blood Cell % 0 /100 WBC (0); Platelet Count 194 Thou/mm3 (140-440); RDW Standard Deviation 47.6 fL (35.1-43.9); Red Blood Count 4.75 Miln/mm3 (4.50-5.90); White Blood Count 7.4 Thou/mm3 (3.8-10.6)
[2025-01-03 17:22] LABS: Collection Type, Urine Clean Catch
[2025-01-03 17:25] LABS: B-Type Natriuretic Peptide > 3280 pg/mL (0-100)
[2025-01-03 17:26] LABS: Alanine Aminotransferase 76 U/L (10-49); Albumin, Serum 4.2 gm/dL (3.5-5.0); Albumin/Globulin Ratio 1.6 (1.2-2.2); Alkaline Phosphatase 83 U/L (46-116); Anion Gap 12 (7-16); Aspartate Amino Transferase 42 U/L (0-34); BUN/Creatinine Ratio 12 Ratio (12-20); Bilirubin,Total 1.0 mg/dL (0.3-1.2); Blood Urea Nitrogen 13 mg/dL (9-23); Calcium 9.3 mg/dL (8.3-10.6); Calcium (Corrected) 9.3 mg/dL (8.5-10.1); Carbon Dioxide 22.0 mMol/L (20.0-31.0); Chloride 105 mMol/L (98-107); Creatinine (Component) 1.1 mg/dL (0.6-1.3); Estimated Creatinine Clearance 86.0 mL/min (>60); Globulin 2.6 gm/dL (2.3-3.5); Glucose 145 mg/dL (74-106); Magnesium 1.4 mg/dL (1.6-2.6); Osmolality,Calculated 280 (275-295); Potassium 4.3 mMol/L (3.4-5.1); Sodium 139 mMol/L (136-145); Total Protein 6.8 gm/dL (5.7-8.2); Troponin I 0.032 ng/mL (0.0-0.045); eGFR > 60 See Note
[2025-01-03 17:50] LABS: Bilirubin,Urine Negative (Negative); Blood,Urine Negative (Negative); Clarity,Urine Clear (Clear/Hazy); Color,Urine Colorless (Lt Yel-Yel); Glucose, Urine Negative (Negative); Hyaline Casts,Urine < 1 /hpf (0-1); Ketones,Urine Negative (Negative); Leukocyte Esterase,Urine Negative (Negative); Nitrite,Urine Negative (Negative); PH,Urine 6.0 (5.0-7.0); Protein,Urine Negative (Neg - Trace); RBC,Urine < 1 /hpf (0-3); Specific Gravity,Urine 1.007 (1.001-1.035); Squamous Epithelial Cell,Urine < 1 /hpf (0-5); Urobilinogen,Urine Negative mg/dL (0.0-1.0); WBC,Urine 1 /hpf (0-5)
[2025-01-03 18:08] LABS: Amphetamine/Methamp Scrn,U Positive (Negative); Barbiturate Screen,Urine Negative (Negative); Benzodiazepines Screen,Urine Negative (Negative); Benzoylecgonine Screen, Ur Negative (Negative); Fentanyl Screen,Urine Negative (Negative); Opiate Screen,Urine Negative (Negative); THC Screen,Urine Positive (Negative)
--- NOTE | 2025-01-03 18:38 | PC.NURSE ---
PT STATES HE DOESN'T WANT TO WAIT ANYMORE. AMA FORM SIGNED AND PT LEFT.
== END 2025-01-03 18:38 | disposition left against medical advice (07) ==
PROVIDERS: Nurse Practitioner Family; Emergency Provider Emergency Medicine
DX: R06.02 Shortness of breath (principal); M79.89 Other specified soft tissue disorders; R07.9 Chest pain, unspecified; I11.0 Hypertensive heart disease with heart failure; I50.9 Heart failure, unspecified; E78.5 Hyperlipidemia, unspecified; Z53.29 Procedure and treatment not carried out because of patient's decision for other reasons
CPT/HCPCS: 36415; 71046; 80053; 80307; 81001; 83735; 83880; 84484; 85025; 93005; 99283

== ENCOUNTER 2025-01-08 05:16 | Emergency (ER) | payer MEDICAID, SELFPAY ==
[2025-01-08 05:25] VITALS: BP 112/81; RESP 16; TEMP 36; O2SAT 100
--- NOTE | 2025-01-08 05:43 | XR_ITS ---
Examination: PA chest single view TECHNIQUE: Upright PA chest single view Date and time on January 08, 2025, 0549 hours INDICATIONS: Chest pain shortness of breath vomiting beginning 2 days ago FINDINGS: Moderate enlargement cardiac contour Opacity left base retrocardiac obscuring detail left hemidiaphragm Mild to moderate vascular congestion The osseous structures are intact IMPRESSION: Moderate enlargement cardiac contour, differential would include pericardial effusion Mild to moderate vascular congestion Suspicious for pneumonia left base retrocardiac, consider aspiration pneumonia
--- NOTE | 2025-01-08 05:43 | EKG_ITS ---
[facility] Test Date: 2025-01-08 Pat Name: NATHANAEL IBARRA Department: Room: - Gender: Male Office Executive: : 1980 Requested By: Gallito Morfin Order Number: [id number] Reading MD: Gallito Morfin Measurements Intervals [place] Rate: 106 P: 69 VA: 136 QRS: 220 QRSD: 110 T: 53 QT: 360 QTc: 480 Interpretive Statements SINUS TACHYCARDIA LEFT ATRIAL ENLARGEMENT [-0.15mV P-WAVE IN V1/V2] RIGHT AXIS DEVIATION [QRS AXIS > 100] S1-S2-S3 PATTERN, CONSISTENT WITH PULMONARY DISEASE, RVH, OR NORMAL VARIANT POSSIBLE ANTERIOR MYOCARDIAL INFARCTION , OF INDETERMINATE AGE [30 ms Q WAVE IN V3/V4, OR R < 0.2 mV IN V4] Compared to ECG 01/03/2025 16:29:20 Atrial abnormality now present Right ventricular hypertrophy now present Myocardial infarct finding still present /store/S0/[id number]/[id number]
--- NOTE | 2025-01-08 05:43 | PD.EDRME ---
Rapid Medical Screening Exam [facility] Arrival date/time: 01/08/25 05:16 44M with history of recently diagnosed CVA and meth-induced CHF presents to ED with CP and SOB, as well as N/V after he took metoprolol, an SSRI, and Eliquis for the first time today. Chief Complaint: General Adult/Misc Complain Vital signs: Vital Signs Temperature 96.8 F 01/08/25 05:25 Respiratory Rate 16 01/08/25 05:25 Blood Pressure 112/81 01/08/25 05:25 Pulse Oximetry (%) 100 01/08/25 05:25 Oxygen Delivery Method Room Air 01/08/25 05:25
[2025-01-08 06:09] VITALS: BMI 24.6
[2025-01-08] MEDS: ONDANSETRON INJ 2 MG/ML INJ 2 ML 4 MG IV (06:15)
--- NOTE | 2025-01-08 06:26 | EDNOTE_ITS ---
Nausea/Vomit./Diarrhea-RME/HPI General Chief complaint: Abdominal Pain Stated complaint: VOMITING,SOB Time Seen by Provider: 01/08/25 06:14 Arrival date/time: 01/08/25 05:16 Limitations: no limitations RME / HPI RME / HPI Narrative: 01/08/25 05:16 44M with history of recently diagnosed CVA and meth-induced CHF presents to ED with CP and SOB, as well as N/V after he took metoprolol, an SSRI, and Eliquis for the first time today. DR. COSTA MAIN ED EVALUATION: 44-year-old male with past medical history of congestive heart failure with reduced ejection fraction (HFrEF), polysubstance abuse (methamphetamine and THC, reportedly quit), and recent CVA (hospitalized from 12/20/24 to 12/22/24) presents to the Emergency Department with complaint of nausea and vomiting that began this morning. Patient states his primary care provider adjusted his medications yesterday, though he is unsure which ones were changed. He woke up today feeling unwell with persistent nausea and episodes of vomiting. No fever, chest pain, or other symptoms reported. Related Data Home Medications ?Medication ?Instructions ?Recorded ?Confirmed buspirone 10 mg tablet 10 mg PO Q12HR 12/20/24 07/0 01/07 carvedilol 3.125 mg tablet 3.125 mg PO Q12H 12/20/24 0 12/20/24 furosemide 20 mg tablet 20 mg PO QDAY 12/20/2412/20 lisinopril 5 mg tablet 5 mg PO QDAY 12/20/24 Previous Rx's ?Medication ?Instructions ?Recorded aspirin 81 mg tablet,delayed 81 mg PO QDAY #30 tabs release atorvastatin 20 mg tablet 80 mg (4 x 20 mg) PO HS #30 tabs 12/22/24 clopidogrel 75 mg tablet 75 mg PO QDAY #21 tabs 12/22 Allergies Allergy/AdvReac Type Severity Reaction Status Date / Time No Known Allergies Allergy Verified 01/08/25 05:17 Review of Systems Review of Systems Systems Reviewed: All systems reviewed, normal except as documented Past Medical History Social History SMOKING STATUS: Never smoker SUBSTANCE USE: former substance user ALCOHOL: Never Past Medical History Comments PMH COMMENT: Congestive heart failure with reduced ejection fraction (HFrEF), polysubstance abuse (methamphetamine and THC, reportedly quit), and recent CVA (hospitalized from 12/20/24 to 12/22/24). ED Exam General Limitations: Present no limitations General appearance: Present alert, in no apparent distress and other (nauseated) Head Head exam: Present atraumatic, normocephalic and normal inspection Eye Eye exam: Present normal appearance, PERRL and EOMI ENT ENT exam: Present normal exam, normal oropharynx and mucous membranes moist Neck Neck exam: Present normal inspection, full ROM and trachea midline Chest Chest inspection: Present normal inspection and symmetric chest wall rise Respiratory Respiratory exam: Present normal lung sounds bilaterally Cardiovascular Cardiovascular exam: Present regular rate, normal rhythm and normal heart sounds Abdominal Exam Abdominal exam: Present soft and normal bowel sounds Extremities Exam Extremities exam: Present normal inspection and full ROM Back Exam Back exam: Present normal inspection and full ROM Neurological Exam Neurological exam: Present alert, oriented X3 and CN II-XII intact Psychiatric Psychiatric exam: Present normal affect and normal mood Skin Skin exam: Present warm, dry, intact and normal color Course Quality Measures none Orders Category Date Time Status CT Screening NOW Care 01/08/25 08:11 Active EKG (ED ONLY) *Do not use* NOW Care 01/08/25 05:43 Completed In and Out Catheter X1 Care 01/08/25 07:53 Completed Insert IV NOW Care 01/08/25 05:[address] angio chest Stat Exams 01/08/25 08:11 Completed EKG (ED Only) Stat Exams 01/08/25 05:43 Draft XR chest 1V portable Stat Exams 01/08/25 05:43 Completed B-Type Natriuretic Peptide Stat Lab 01/08/25 06:12 Completed CBC Stat Lab 01/08/25 06:12 Completed Comprehensive Metabolic Panel Stat Lab 01/08/25 06:12 Completed Drug Screen,Urine Stat Lab 01/08/25 07:55 Completed Magnesium Stat Lab 01/08/25 06:12 Completed Partial Thromboplastin Time Stat Lab 01/08/25 06:12 Completed Prothrombin Time with INR Stat Lab 01/08/25 06:12 Completed Troponin I Stat Lab 01/08/25 06:12 Completed Urinalysis Stat Lab 01/08/25 07:55 Completed Furosemide Inj [Lasix Inj] Med 01/08/25 10:54 Discontinued 40 mg IVP X1 ONE Ondansetron Inj [Zofran Inj] Med 01/08/25 05:43 Discontinued 4 mg IV X1 ONE cefTRIAXone/D5w 1gm IV premix [Rocephin/D5w 1gm IV Med 01/08/25 10:55 Discontinued premix] 1 gm in 50 ml IV NOW Vital Signs Vital signs: Vital Signs Temperature 96.8 F 01/08/25 05:25 Respiratory Rate 16 01/08/25 05:25 Blood Pressure 112/81 01/08/25 05:25 Pulse Oximetry (%) 100 01/08/25 05:25 Oxygen Delivery Method Room Air 01/08/25 05:25 Nausea/Vomiting/Diarrhea MDM Narrative MDM Narrative:: Patient is a 44-year-old male with medical history notable for smoking marijuana, polysubstance use currently remission, prior alcohol use currently remission, congestive heart failure with an emergency department concerns for nausea vomiting and feeling short of breath since yesterday. The patient has medications were recently changed by his primary care doctor and his morning woke up vomiting. He denies chest pain palpitations dysuria hematuria one of the stools patient states that he recently quit using alcohol and methamphetamines. Concern for ACS arrhythmia electrolyte abnormality, CHF exacerbation. Ordered labs EKG offered medication for symptom relief. Labs as anything is lactic abnormality, patient BNP greater than 2000. Elevated however it is less than before. Patient creatinine increased from previous. Patient is short of breath, chest x-ray shows possible pneumonia, provided antibiotics. Also with pulmonary vascular congestion versus pericardial effusion. Ordered CT angio of the chest. Patient likely will need diuresis. Discussed with shop coordinator Dr. Marvin, given patient is fluid overloaded, patient with benefit from 40 of IV diuretics furosemide. CT angio of the chest did not show any pulmonary embolus dissection or pneumonia. Reevaluation patient hemodynamically stable no distress advised to take his medications as prescribed in conjunction with recommendations of his primary care doctor. Follow closely with floriculture teacher. If he has new symptoms or symptoms of concern Gema Schulz, am scribing for and in the presence of Dr. Costa. Patient data External records reviewed:: [facility] previous records Clinical information provided by:: patient Social determinants that could affect healthcare access:: substance use (former) Patient has the following chronic illnesses:: Congestive heart failure with reduced ejection fraction (HFrEF), polysubstance abuse (methamphetamine and THC, reportedly quit), and recent CVA (hospitalized from 12/20/24 to 12/22/24). How is presenting disease/condition affected by chronic disease/condition?: exacerbated by Evaluation data The following diagnostics were reviewed and interpreted by me:: lab results, radiology exam(s) and EKG tracing(s) Lab and/or radiology exams considered but not ordered:: none Interpretation Summary: My interpretation: EKG performed at 0546 hours, sinus tachycardia, rate 106, normal intervals, non specific T wave changes, no cardiac alert, T wave inversion in V6 present in prior EKG -- Procedure(s): XR chest 1V portable Accession Number(s): [id number] cc: Nba Castorena MD; Gallito Morfin Examination: PA chest single view TECHNIQUE: Upright PA chest single view Date and time on January 08, 2025, 0549 hours INDICATIONS: Chest pain shortness of breath vomiting beginning 2 days ago FINDINGS: Moderate enlargement cardiac contour Opacity left base retrocardiac obscuring detail left hemidiaphragm Mild to moderate vascular congestion The osseous structures are intact IMPRESSION: Moderate enlargement cardiac contour, differential would include pericardial effusion Mild to moderate vascular congestion Suspicious for pneumonia left base retrocardiac, consider aspiration pneumonia Dictated By: Nba Castorena MD Procedure(s): CT angio chest Accession Number(s): [id number] cc: Nba Castorena MD; Blair Neves MD; Yuko Costa MD~ Examination: CTA chest with intravenous contrast 2-D reconstructions 3-D reconstructions, vascular Date and time of exam: January 08 2025, 0959 hrs. Indications: Shortness of breath 10 months CTDI: vol (mGy) 17.8 DLP: (mGycm) 309 Technique: Multiple axial sections of the thorax have been obtained. 3 mm slice thickness, from below the hemidiaphragms to above the apices of the lungs. Mediastinal and lung density settings have been obtained. 2-D sagittal and coronal reconstructions. 3-D angiographic renderings, 3-D volume renderings, 3D post processing, vascular maximum intensity projections obtained. Contrast administered is 60 cc Isovue-300. Low dose protocols were performed. One or more of the following dose reduction techniques were used; automated exposure control, adjustment of the mA and/or KV according to patient size, use of iterative reconstruction technique. Findings: No thoracic aortic aneurysmal dilatation No pulmonary artery hypertension, no pulmonary artery filling defects Moderate enlargement cardiac contour Mild vascular congestion. No lobar pneumonia or pulmonary edema. Liver irregular in contour, no focal liver lesions Suspicious for mild ascites Mild thoracic spondylosis Impression: No thoracic aortic aneurysm dilatation Negative for pulmonary artery emboli Moderate enlargement cardiac contour with mild vascular congestion. No lobar pneumonia or pulmonary edema Cirrhosis versus primary hepatocellular disease Dictated By: Nba Castorena MD Medications / Prescriptions Medications / Prescriptions considered but not ordered:: none Medication administrations:: Medication Administration History Discontinued Medications Furosemide (Furosemide Inj 10 Mg/Ml 4ml Vial) 40 mg IVP X1 ONE Stop: 01/08/25 10:55 Last Admin: 01/08/25 11:13 Dose: 40 mg Documented By: SHEILA Ceftriaxone Sodium/Dextrose (Rocephin/D5w 1gm Iv Premix) 1 gm in 50 mls @ 100 mls/hr IV NOW ONE Stop: 01/08/25 11:24 Last Admin: 01/08/25 11:14 Dose: 100 mls/hr Documented By: SHEILA Ondansetron HCl (Ondansetron Inj 2 Mg/Ml Inj 2 Ml) 4 mg IV X1 ONE; Protocol Stop: 01/08/25 05:44 Last Admin: 01/08/25 06:15 Dose: 4 mg Documented By: CB see above Consultations Consultation(s) initiated? (list below): No Consultation #1 (Physician, Specialty, Details): Dr. Marvin Diagnosis Nausea Differential Diagnosis: other (Adverse reaction to recent medication changes, post-stroke autonomic dysfunction, and gastrointestinal irritation or withdrawal effects related to prior substance use.) Most likely diagnosis given after review of the tests above:: CHF exacerbation Admission Indicated Admission indicated?: not indicated Admission Request Was there a request for admission?: No Disposition Plan Disposition Plan: Discharge Discharge Attestation Discharge Attestation: The patient and all family members were given an opportunity to ask questions and understood the discharge instructions. Discharge instructions specifically effects, indications for sooner follow up or return to the emergency department, and the expected course of current diagnosis. Patient condition: Stable Discharge Plan Plan Patient Disposition: HOME (Self Care) Prescriptions/Referrals Prescriptions/Med Rec: No Action carvedilol 3.125 mg tablet 3.125 mg PO Q12H Patient Comments: TAKE 1 TABLET BY MOUTH EVERY 12 HOURS WITH FOOD buspirone 10 mg tablet 10 mg PO Q12HR Patient Comments: TAKE 1 TABLET BY MOUTH EVERY 12 HOURS lisinopril 5 mg tablet 5 mg PO QDAY Patient Comments: TAKE 1 TABLET BY MOUTH DAILY furosemide 20 mg tablet 20 mg PO QDAY Patient Comments: TAKE 1 TABLET BY MOUTH DAILY NEEDED atorvastatin 20 mg Tablet 80 mg PO HS Qty: 30 0RF clopidogrel 75 mg Tablet 75 mg PO QDAY Qty: 21 0RF aspirin 81 mg Tablet,Delayed Release (Dr/Ec) 81 mg PO QDAY Qty: 30 0RF Referrals: Blair Neves MD [Primary Care Provider] - In 1 week Problem List Clinical Impression: CHF exacerbation Patient/Caregiver Discharge Instructions Education Materials: ED Heart Disease Education Additional Instructions: Please discuss with your primary doctor and floriculture teacher your cardiac medications. You may need to have your medications adjusted to see which ones he tolerates best. Your CT scan did not show pneumonia. return immediately for worsening symptoms or new symptoms or concerns. Print Language: Icelandic Stand Alone Forms: [employer] Award Info., Patient Portal Info Letter
[2025-01-08 06:30] LABS: Basophils # (Auto) 0.1 Thou/mm3 (0.0-0.2); Basophils % (Auto) 1 % (0-2.5); Eosinophils # (Auto) 0.1 Thou/mm3 (0.0-0.5); Eosinophils % (Auto) 1 % (0-10); Hematocrit 45.0 % (41.0-53.0); Hemoglobin 14.4 g/dL (13.5-16.0); Immature Granulocytes Auto 0.03 Thou/mm3 (0.00-0.00); Lymphocytes # (Auto) 2.4 Thou/mm3 (1.0-4.8); Lymphocytes % (Auto) 27 % (10-50); Mean Corpuscular HGB Conc 32.0 g/dl (31.0-37.0); Mean Corpuscular Hemoglobin 28.6 pg (25.0-35.0); Mean Corpuscular Volume 89 fL (80-100); Monocytes # (Auto) 0.5 Thou/mm3 (0.0-0.8); Monocytes % (Auto) 6 % (0-12); Neutrophils # (Auto) 5.8 Thou/mm3 (1.8-7.7); Neutrophils % (Auto) 65 % (37-80); Nucleated Red Blood Cell # 0.00 Thou/mm3 (0.00-0.00); Nucleated Red Blood Cell % 0 /100 WBC (0); Platelet Count 247 Thou/mm3 (140-440); RDW Standard Deviation 49.3 fL (35.1-43.9); Red Blood Count 5.04 Miln/mm3 (4.50-5.90); White Blood Count 9.0 Thou/mm3 (3.8-10.6)
[2025-01-08 06:51] LABS: Alanine Aminotransferase 56 U/L (10-49); Albumin, Serum 4.4 gm/dL (3.5-5.0); Albumin/Globulin Ratio 1.6 (1.2-2.2); Alkaline Phosphatase 92 U/L (46-116); Anion Gap 11 (7-16); Aspartate Amino Transferase 47 U/L (0-34); BUN/Creatinine Ratio 14 Ratio (12-20); Bilirubin,Total 1.6 mg/dL (0.3-1.2); Blood Urea Nitrogen 20 mg/dL (9-23); Calcium 9.3 mg/dL (8.3-10.6); Calcium (Corrected) 9.3 mg/dL (8.5-10.1); Carbon Dioxide 24.5 mMol/L (20.0-31.0); Chloride 103 mMol/L (98-107); Creatinine (Component) 1.4 mg/dL (0.6-1.3); Estimated Creatinine Clearance 64.5 mL/min (>60); Globulin 2.7 gm/dL (2.3-3.5); Glucose 135 mg/dL (74-106); Magnesium 1.9 mg/dL (1.6-2.6); Osmolality,Calculated 280 (275-295); Potassium 4.4 mMol/L (3.4-5.1); Sodium 138 mMol/L (136-145); Total Protein 7.1 gm/dL (5.7-8.2); Troponin I 0.024 ng/mL (0.0-0.045); eGFR > 60 See Note
[2025-01-08 06:59] LABS: INR 1.3 (0.9-1.3); Partial Thromboplastin Time 28.2 Seconds (22.0-36.0); Prothrombin Time 13.9 Seconds (9.0-12.2)
[2025-01-08 07:07] VITALS: BP 126/94; PULSE 110; RESP 20; TEMP 36.4; O2SAT 95
--- NOTE | 2025-01-08 07:26 | PC.NURSE ---
Report received from pm nurse, patient lying in gurney in semi-fowlers position. Patient to er with c/o increased sob and N/V and loose stool since last pm, patient has h/o CHF, denies cough, no c/o fever, patient denies pain,skin warm dry and pink. BNP labs pending, informed patient of need of urine sample, urinal provided. at bedside. Dr. Bueno at bedside informed patient of need of urine sample and states she will return to bedside to give all test results after urine collected and urine resulted. Patient and verbalize understanding, call light within reach.
[2025-01-08 07:40] LABS: B-Type Natriuretic Peptide 2636 pg/mL (0-100)
[2025-01-08 08:00] LABS: Collection Type, Urine Clean Catch
--- NOTE | 2025-01-08 08:11 | XR_ITS ---
Examination: CTA chest with intravenous contrast 2-D reconstructions 3-D reconstructions, vascular Date and time of exam: January 08 2025, 0959 hrs. Indications: Shortness of breath 10 months CTDI: vol (mGy) 17.8 DLP: (mGycm) 309 Technique: Multiple axial sections of the thorax have been obtained. 3 mm slice thickness, from below the hemidiaphragms to above the apices of the lungs. Mediastinal and lung density settings have been obtained. 2-D sagittal and coronal reconstructions. 3-D angiographic renderings, 3-D volume renderings, 3D post processing, vascular maximum intensity projections obtained. Contrast administered is 60 cc Isovue-300. Low dose protocols were performed. One or more of the following dose reduction techniques were used; automated exposure control, adjustment of the mA and/or KV according to patient size, use of iterative reconstruction technique. Findings: No thoracic aortic aneurysmal dilatation No pulmonary artery hypertension, no pulmonary artery filling defects Moderate enlargement cardiac contour Mild vascular congestion. No lobar pneumonia or pulmonary edema. Liver irregular in contour, no focal liver lesions Suspicious for mild ascites Mild thoracic spondylosis Impression: No thoracic aortic aneurysm dilatation Negative for pulmonary artery emboli Moderate enlargement cardiac contour with mild vascular congestion. No lobar pneumonia or pulmonary edema Cirrhosis versus primary hepatocellular disease
[2025-01-08 08:44] LABS: Bilirubin,Urine Negative (Negative); Blood,Urine Negative (Negative); Clarity,Urine Clear (Clear/Hazy); Color,Urine Yellow (Lt Yel-Yel); Glucose, Urine Negative (Negative); Hyaline Casts,Urine 1 /hpf (0-1); Ketones,Urine Negative (Negative); Leukocyte Esterase,Urine Negative (Negative); Nitrite,Urine Negative (Negative); PH,Urine 5.5 (5.0-7.0); Protein,Urine 1+ (Neg - Trace); RBC,Urine 3 /hpf (0-3); Specific Gravity,Urine 1.024 (1.001-1.035); Squamous Epithelial Cell,Urine 2 /hpf (0-5); Transitional Epi Cells,Urine 1 /hpf (0-5); Urobilinogen,Urine Negative mg/dL (0.0-1.0); WBC,Urine 3 /hpf (0-5)
[2025-01-08 09:02] LABS: Amphetamine/Methamp Scrn,U Positive (Negative); Barbiturate Screen,Urine Negative (Negative); Benzodiazepines Screen,Urine Negative (Negative); Benzoylecgonine Screen, Ur Negative (Negative); Fentanyl Screen,Urine Negative (Negative); Opiate Screen,Urine Negative (Negative); THC Screen,Urine Positive (Negative)
--- NOTE | 2025-01-08 09:26 | PC.NURSE ---
Called Ct states he will come to take patient for ct exam in approx. 20 minutes, patient mace aware.
[2025-01-08 10:12] VITALS: BP 123/70; PULSE 112; RESP 18; TEMP 36.4; O2SAT 92
[2025-01-08 11:13] VITALS: BP 124/96; PULSE 94
[2025-01-08] MEDS: FUROSEMIDE INJ 10 MG/ML 4ML VIAL 40 MG IVP (11:13)
[2025-01-08] MEDS: cefTRIAXone/D5w 1gm IV premix 1 GM/50 ML BAG IV (11:14)
[2025-01-08 12:18] VITALS: BP 116/98; PULSE 98; RESP 17; TEMP 36.1; O2SAT 96
== END 2025-01-08 12:50 | disposition home or self-care (01) ==
PROVIDERS: Physician Assistant; Emergency Provider Emergency Medicine; PCP Internal Medicine Cardiovascular Disease
DX: I50.20 Unspecified systolic (congestive) heart failure (principal); R00.0 Tachycardia, unspecified
CPT/HCPCS: 51701; 36415; 71045; 71275; 80053; 80307; 81001; 83735; 83880; 84484; 85025; 85610; 85730; 93005; 96365; 96375; 99283; A4649; J0696; J1938; J2405; Q9967